=== PATIENT | male | born 1965 ===

== ENCOUNTER 2021-04-15 10:00 | Outpatient (RCR) | payer MEDICARE, MEDICAID, SELFPAY ==
--- NOTE | 2021-03-08 12:17 | MHC.PT.EP ---
[facility] [place] Office [place] Office [place] Office [address] Christina Goldberg [address] [phone] F: [phone] F: [phone] F: [phone] F: [phone] Physical Therapy Plan of Care Date of Evaluation: Date of Surgery: NA Diagnosis: IMPINGEMENT SYNDROME R SHLDER Assessment: Pt IS 55 YO RHD M REFERRED TO PT FROM DR BEY WITH R SHLDER IMPINGEMENT (SCRIPT FROM JUN 2020). Pt REPORTS NO INJURY TO SHLDER , NO RELIEF WITH CORTISONE INJECTION. REPORTS R SHLDER FEELS THE SAME IT DID 8 MONTHS AGO WHEN SAW ORTHO. PRESENTS WITH DECREASED R SHLDER ROM AND STRENGTH WITH LIMITED USE OR R UE REPORTED. Pt IS ON DISABILITY FOR HIS BACK. SHOULD BENEFIT FROM PT TO HELP IMPROVE R SHLDER ROM/STRENGTH AND HELP DECREASE PAIN AND HELP IMPROVE FUNTION Frequency and Duration: The patient will be seen 2X/WK X 6 WKS Short Term Goals: 1. INCREASED POSTURE AWARENESS AND AWARNESS SHLDER CARE 2. I HEP WITH DC EX PLAN Alf Goals: 1. IMPROVED SPADI 2. INCREASED R SHLDER ROM 10-20 DEGREES T/O 3. INCREASED STRENGTH R SHLDER FLEX, ABD, ER AT LEAST 1/2 MM GRADE 4. DECREASED PAIN R SHLDER AT LEAST 50% WITH ADLS Treatment Plan: Modalities to reduce pain, spasms and effusion. Manual therapy to restore motion and function. Therapeutic exercise to improve strength and flexibility. Neuromuscular re-education for posture and balance. Therapeutic activities to return to functional activities of daily living. Electronically signed by: PEDRITO CHRISTINE PT Please sign and return to therapist. Thank you for your referral.
--- NOTE | 2021-06-10 13:43 | MHC.PT.DC ---
[facility] [place] Office [place] Office [place] [address] Christina Goldberg 140 [facility] [phone] F: [phone] F: [phone] F: [phone] F: [phone] Physical Therapy Discharge Report Diagnosis: IMPINGEMENT SYNDROME R SHOULDER Date of Surgery: NA Date of Evaluation: 03/08/21 Date of Discharge: 04/15/21 Treatments to Date: 9 Cancellations to Date: 0 No Shows to Date: 0 Discharge Status: Achieved Goals Improved Function Independent with HEP Discharge Summary: HAS MET GOALS OF PT AND DCed ON THIS DATE Electronically signed by: Louisa Walker PT, DPT Please sign and return to therapist. Thank you for your referral.
== END 2021-09-11 14:34 | disposition home or self-care (01) ==
LOC: HO.PT 10:00
PROVIDERS: Visit Provider Orthopaedic Surgery
DX: M75.41 Impingement syndrome of right shoulder (principal)
CPT/HCPCS: 97033; 97110; 97140; 97162; 97530

== ENCOUNTER 2021-05-21 15:04 | Emergency (ER) | payer MEDICARE, MEDICAID, SELFPAY ==
--- NOTE | ~2021-05-21 | XR_ITS ---
EXAMINATION: XR LUMBOSACRAL SPINE CLINICAL INFORMATION: Low back pain COMPARISON: None TECHNIQUE: Three views of the lumbosacral spine. FINDINGS: There is normal lumbar lordosis. The vertebral heights and alignment is normal. There is loss of disc height at spondylosis virtually at every disc level. No lytic process. No acute fracture. The paravertebral soft tissues are normal. XR/XR lumbar spine 2-3V IMPRESSION: Degenerative disc changes with ventral spondylosis throughout lumbar spine. No visible acute fracture, dislocation or lytic process.
[2021-05-21 16:02] VITALS: BP 173/93; PULSE 99; RESP 16; TEMP 36.9; O2SAT 98; BMI 33.5
--- NOTE | 2021-05-21 16:13 | ED.BACK ---
HPI - Back Pain/Injury General Chief Complaint: Back Pain/Injury Stated Complaint: BACK PAIN Time Seen by Provider: 05/21/21 16:11 Source: patient Mode of arrival: ambulatory Limitations: no limitations History of Present Illness HPI Narrative: 55-year-old male with past medical history of low back injury presents to the ED with acute left-sided low back pain. Denies any numbness or tingling down into the left leg or genitalia is. Denies any recent injury or trauma. Denies any abdominal pain, nausea / vomiting / diarrhea. Denies any urinary symptoms such as burning with urination or increased urinary frequency. Denies chest pain or shortness of breath. Has been using tramadol and ibuprofen at home with minimal relief in discomfort has also been using cyclobenzaprine which helps but some to sleep but does not take away the discomfort. Due to concern he felt he needed to be seen. Related Data Home Medications Medication Instructions Recorded Confirmed atorvastatin 40 mg tablet 40 mg PO DAILY tab 03/14/21 03/14/21 Previous Rx's Medication Instructions Recorded cyclobenzaprine 10 mg tablet 10 mg PO TID PRN #15 tab 03/14/21 ibuprofen 600 mg tablet 600 mg PO TID 30 Days #90 tab 03/14/21 tramadol 50 mg tablet 50 mg PO BID 7 Days #14 tab 03/14/21 diazepam [Valium] 5 mg PO TID PRN #9 tab 05/21/21 Allergies Allergy/AdvReac Type Severity Reaction Status Date / Time nortriptyline [NORTRIPTYLINE] AdvReac Mild CONSTIPATIO Verified 03/14/21 10:00 N valium Allergy Unknown Unknown Uncoded 08/16/20 14:27 Review of Systems Review of Systems: Constitutional : No Weight loss, No Fever, No Chills, No Night Sweats, No Fatigue, No Malaise ENT/Mouth : No Hearing loss, No Ear Pain, No Nasal Congestion, No Sinus Pain, No Hoarseness, No sore throat, No Rhinorrhea, No Swallowing Difficulty Eyes: No Eye Pain, No Swelling, No Redness, No Foreign Body, No Discharge, No Vision Changes Cardiovascular : No Chest Pain, No SOB, No Dyspnea on Exertion, No Orthopnea, No Edema, No Palpitations Respiratory : No Cough, No Sputum, No Wheezing, No Smoke Exposure, No Dyspnea Gastrointestinal : No Nausea, No Vomiting, No Diarrhea, No Constipation, No abdominal Pain, No Hematochezia, No Melena Genitourinary : no irregular bleeding, No Dysuria, No Urinary Frequency, No Hematuria, No Urinary Incontinence, No Urgency, No Flank Pain, No Urinary Flow Changes, No Hesitancy Musculoskeletal : No joint pain, No Myalgias, No Joint Swelling, + back pain Skin : No Skin Lesions, No rash Neuro : No Weakness, No Numbness, No Paresthesias, No Loss of Consciousness, No Dizziness, No Headache Psych : No Anxiety/Panic, No Depression, No SI/HI/AH/VH, No Social Issues, Heme/Lymph: No Bruising, No Bleeding,No Lymphadenopathy Endocrine : No Polyuria, No Polydipsia, No Temperature Intolerance [facility] Past Medical History Attestation statement: The following information was validated with the patient. Source: old records reviewed and obtained from family Surgical History No pertinent past surgical history Family History Family History Father No problems noted. Mother Diabetes Hyperlipidemia Hypertension Maternal Grandfather Cancer Social History Social History Alcohol intake: former Advance Directives: No Advance Directives Information Provided: No Physical Exam Vital Signs: Vital Signs: Last Vital Signs Temp 98.4 F 05/21/21 16:02 Pulse 99 05/21/21 16:02 Resp 16 05/21/21 16:02 BP 173/93 H 05/21/21 16:02 Pulse Ox 98 05/21/21 16:02 Body Mass Index 33.5 vital signs have been reviewed as normal and appeared to be correct. Blood pressure normal. Heart rate normal. Respiration rate normal. Temperature normal. Oxygen saturation normal. Appearance: Alert. Oriented X3. Mild acute distress. Head: Normal external exam. Normocephalic. Atraumatic. No Wilson signs noted. No raccoon eyes noted Eyes: Conjunctiva and sclera normal. ENT: EAC normal. Moist mucous membranes. No drooling noted. No muffled voice noted. Neck: Normal inspection. Neck supple. FROM. No meningeal signs. CVS: Pulses normal throughout. Respiratory: No respiratory distress. Painless inspiration. No accessory muscle usage noted Abdomen: No visible injury noted. Abdomen soft, nd/nt Back: Limited range of motion noted. Patient with midline lumbar spine tenderness as well as left-sided paraspinal involvement. No right-sided paraspinal involvement. No step-offs or acute deformities no overlying ecchymosis. No CVA tenderness. Skin: Skin warm and dry. Normal skin color. Normal skin turgor. Extremities: No lower extremity edema. Extremities exhibit normal range of motion. Neuro: Oriented X 3. No motor deficit. No sensory deficit. Course Reevaluation(s) Reevaluation #1: Patient's x-ray and urinalysis was negative was able to ambulate will discharge home with continued muscle relaxer at home and outpatient follow-up. MDM - Back Pain/Injury MDM Narrative Medical decision making narrative: Patient's vital signs are stable and afebrile. Patient presenting to the ED for acute on chronic low back pain. Patient with reproducible tenderness to the midline lumbar spine as well as left-sided paraspinal region no flank involvement however will obtain urinalysis to ensure the absence of RBCs concerning for stone. Abdomen soft nondistended nontender patient is hemodynamically stable without reports of chest pain or shortness of breath no acute concern at this time for aortic dissection. Will obtain a lumbar spine plain film looking for evidence of acute compression fracture or other acute abnormalities that would explain exacerbation will give single oral dose of oxycodone and continue to monitor for improvement. Lab Data Labs: Lab Results 05/21/21 Range/Units 17:24 Urine Color YELLOW Urine Appearance CLEAR Urine pH 8.0 (5.0-8.0) Ur Specific [place] 1.015 (1.005-1.025) Urine Protein NEG (NEG-TRACE) MG/DL Urine Glucose (UA) NEG (NEG) MG/DL Urine Ketones NEG (NEG) MG/DL Urine Blood NEG (NEG) Urine Nitrite NEG (NEG) Ur Leukocyte Esterase NEG (NEG) Discharge Plan Discharge Clinical Impression: Lumbar radiculopathy Sciatica Qualifiers: Laterality: left Qualified Code(s): M54.32 - Sciatica, left side Patient Disposition: Home, Self-Care Instructions: Sciatica (ED) Additional Instructions: You were seen in the emergency department today for left-sided low back pain an x-ray was done without evidence of fracture. A urine sample was done and was normal this is likely secondary to muscle spasm you will be prescribed a muscle relaxer for home for comfort follow-up with civil engineering specialist if pain reoccurs or persist. Do not take the Valium with the cyclobenzaprine. Prescriptions: New diazepam [Valium] 5 mg tablet 5 mg PO TID PRN (Reason: muscle spasm) Qty: 9 RF: 0 No Action cyclobenzaprine 10 mg tablet 10 mg PO TID PRN (Reason: muscle spasm) Qty: 15 RF: 0 atorvastatin 40 mg tablet 40 mg PO DAILY RF: 0 ibuprofen 600 mg tablet 600 mg PO TID 30 Days Qty: 90 RF: 3 tramadol 50 mg tablet 50 mg PO BID 7 Days Qty: 14 RF: 0 Referrals: Reyes Salinas MD [Physician] - 1 week Interventions: ED Discharge Assessment Last Done: 05/21/21 18:38 Discharge Date/Time: 05/21/21 18:40 Print Language: Ukrainian
[2021-05-21] MEDS: oxyCODONE HCl Immed Release 5 MG TABLET 10 MG PO (16:30)
[2021-05-21 17:40] LABS: Glucose Urine UA NEG (NEG); Leukocyte Esterase Urine NEG (NEG); Nitrite Urine NEG (NEG); Specific Gravity - Urine 1.015 (1.005-1.025); Urine Blood NEG (NEG); Urine Ketones NEG (NEG); Urine Protein NEG (NEG-TRACE)
[2021-05-21 17:44] LABS: Appearance Urine CLEAR; Color Urine YELLOW
== END 2021-05-21 18:40 | disposition home or self-care (01) ==
PROVIDERS: Physician Assistant; Emergency Provider Emergency Medicine; PCP Internal Medicine
DX: M54.16 Radiculopathy, lumbar region (principal); M54.42 Lumbago with sciatica, left side; E78.5 Hyperlipidemia, unspecified; Z79.02 Long term (current) use of antithrombotics/antiplatelets
CPT/HCPCS: 72100; 81003; 99283; 99284

== ENCOUNTER 2021-08-19 11:18 | Emergency (ER) | payer MEDICARE, MEDICAID, SELFPAY ==
--- NOTE | ~2021-08-19 | CT_ITS ---
EXAMINATION: CT LUMBAR SPINE WITHOUT CONTRAST CLINICAL INFORMATION: Worsening back pain status post fall. Difficulty walking. COMPARISON: Lumbar spine radiographs 08/19/2021. TECHNIQUE: Weed Inspector images were obtained. CT imaging of the lumbar spine was performed without contrast. Data was reformatted into multiplanar images at the acquisition workstation. This CT examination was performed using dose optimization techniques as appropriate, variously including the following: *Automated exposure control *Adjustment of mA and/or kV according to patient size (this includes techniques or standardized protocols for targeted exams where dose is matched to indication/reason for exam; i.e. extremities or head) *Use of iterative reconstruction technique DLP; 659 mGy-cm FINDINGS: There is an acute compression fracture of the L1 vertebral body with subtle impaction upper endplate resulting in 15% vertebral height loss anteriorly. No retropulsion of posterior cortex. Vertebral heights are otherwise maintained at all levels. There is loss of intervertebral disc height with associated sclerotic degenerative endplate changes and hypertrophic disc osteophyte spurring at multiple levels.. Slight left lateral subluxation of L1 on L2 and slight right lateral subluxation of L2 on L3. Vertebral alignment is grossly maintained the sagittal dimension. Canal patency is not well assessed on this examination due to inherent limitations of CT without intrathecal contrast. There is partial effacement of perineural fat at multiple levels with mild to moderate mass effect on both L5 foraminal nerve roots. CT/CT lumbar spine wo con IMPRESSION: There is an acute compression fracture of the L1 vertebral body with approximately 15% vertebral height loss anteriorly. No retropulsion of posterior cortex. Although the canal is not well assessed on this examination due to inherent limitations of CT without intrathecal contrast there is no evidence of canal compromise. Disc osteophyte spurring in conjunction with facet degenerative change at L5-S1 causes mild to moderate mass effect on both L5 foraminal nerve roots.
--- NOTE | ~2021-08-19 | CT_ITS ---
EXAMINATION: CT HEAD WITHOUT CONTRAST CLINICAL INFORMATION: Fall. Head injury. COMPARISON: Previous head CT most recent October 2012 TECHNIQUE: Contiguous axial imaging was performed from the skull base to vertex without intravenous administration of contrast. This CT examination was performed using dose optimization techniques as appropriate, variously including the following: *Automated exposure control *Adjustment of mA and/or kV according to patient size (this includes techniques or standardized protocols for targeted exams where dose is matched to indication/reason for exam; i.e. extremities or head) *Use of iterative reconstruction technique DLP: 915 mGy-cm FINDINGS: There is no evidence of acute intracranial hemorrhage or territorial infarction. No abnormal mass effect or midline shift is seen. Pan to white matter differentiation is well preserved. No extra-axial fluid collections are identified. The ventricles are normal in size. There is no abnormal attenuation within the brain parenchyma. The osseous structures and soft tissues are normal. The mastoid air cells and visualized portions of the paranasal sinuses are well aerated. CT/CT head/brain wo con IMPRESSION: No acute intracranial pathology.
--- NOTE | ~2021-08-19 | XR_ITS ---
EXAMINATION: XR LUMBOSACRAL SPINE CLINICAL INFORMATION: Back pain COMPARISON: Radiographs lumbar spine 05/21/2021, MR lumbar spine 06/22/2018 TECHNIQUE: Three views of the lumbosacral spine. FINDINGS: There are 5 nonrib-bearing lumbar vertebral with mild dextrocurvature upper lumbar spine and normal lumbar lordosis. Mild superior endplate depression is present at L1, new from prior exam 05/21/2021. There is no visible fracture line and no visible destructive process. The remainder of the vertebral bodies are normal in height. There is no spondylolisthesis. Again, there are multilevel degenerative disc changes with disc narrowing and endplate sclerosis and vertebral spurring. There is facet degeneration lumbosacral junction. The SI joints and visualized sacrum are unremarkable. XR/XR lumbar spine 2-3V IMPRESSION: 1. Mild superior endplate depression L1, new from 05/21/2021. 2. Multilevel degenerative disc changes. Facet degeneration lumbosacral junction. 3. No spondylolisthesis or visible destructive process.
--- NOTE | ~2021-08-19 | CT_ITS ---
EXAMINATION: CT CERVICAL SPINE WITHOUT CONTRAST CLINICAL INFORMATION: Fall. Neck pain. COMPARISON: Previous CT of the cervical spine April 2007 TECHNIQUE: Axial images through the cervical spine without contrast. Vaginal and coronal reconstructions on the technologist workstation were performed. This CT examination was performed using dose optimization techniques as appropriate, variously including the following: *Automated exposure control *Adjustment of mA and/or kV according to patient size (this includes techniques or standardized protocols for targeted exams where dose is matched to indication/reason for exam; i.e. extremities or head) *Use of iterative reconstruction technique DLP: 764 mGy-cm FINDINGS: Bone alignment is normal. No fracture or dislocation is seen. There is multilevel degenerative spondylosis from C2-C3 to T1-T2. There is degenerative disc disease from C3-C4 to C7-T1. There are degenerative changes at the C1 dens articulation. Prevertebral soft tissues are normal. There is soft tissue ossification of the nuchal ligament. Visualized lung apices are clear. CT/CT cervical spine wo con IMPRESSION: Degenerative changes. No fracture or dislocation is seen.
[2021-08-19 11:29] VITALS: BP 131/79; PULSE 108; RESP 16; TEMP 36.8; O2SAT 98; BMI 45.3
[2021-08-19] MEDS: oxyCODONE HCl Immed Release 5 MG TABLET PO (11:58)
[2021-08-19] MEDS: Ibuprofen 800 MG TABLET PO (11:58)
[2021-08-19] MEDS: diazePAM 5 MG TABLET PO (11:58)
[2021-08-19 12:58] VITALS: RESP 18
--- NOTE | 2021-08-19 14:14 | ED.BACK ---
HPI - Back Pain/Injury General Chief Complaint: Back Pain/Injury Stated Complaint: back injury 08/17/21 Time Seen by Provider: 08/19/21 11:49 Source: patient and family (Daughter at bedside) Mode of arrival: ambulatory Limitations: language barrier ([place]orese-speaking) History of Present Illness HPI Narrative: 56-year-old male with a past medical history of chronic back pain presenting to the ED with complaints of acute on chronic back pain in the lumbar spine after he had a fall when he was going on the steps when he was at home approximately 2 days ago and his legs gave out he fell down 5 steps and since then has been having neck and lower back pain. Any type of movement will make the back pain worse. He reports nothing relieves the back pain. He has tried [id number] Motrin Tylenol along with prescribed muscle relaxants and tramadol no symptomatic relief. He reports he did hit his head but did not lose consciousness. He is not on any blood thinners. He also complains of neck pain. Denies any other symptoms complaints concerns or injuries at this time. MD elicited complaint: back pain, back injury and fall Pertinent past history: prior back pain and recent trauma Onset (ago): day(s) (Two days) Timing: constant and progressively worsening Severity: severe Pain scale (0-10): 10 Similar Symptoms Previously: Yes Quality: aching Location: lumbar spine Radiation: none Exacerbating factors: movement, sitting upright, walking and lifting Relieving factors: none Context: fall (He reports his leg gave out on Thursday while he was walking down the steps and he fell down the 5 steps injuring his back) Associated symptoms: other (He reports intermittent paresthesias to bilateral lower extremities although none at this time reports associated neck pain) Treatments prior to arrival: cold therapy, heat therapy, NSAIDS, acetaminophen and other medications (Muscle relaxants and tramadol no symptomatic relief) Work related injury: No Related Data Home Medications Medication Instructions Recorded Confirmed atorvastatin 40 mg tablet 40 mg PO DAILY tab 03/14/21 03/14/21 Previous Rx's Medication Instructions Recorded cyclobenzaprine 10 mg tablet 10 mg PO TID PRN #15 tab 03/14/21 ibuprofen 600 mg tablet 600 mg PO TID 30 Days #90 tab 03/14/21 tramadol 50 mg tablet 50 mg PO BID 7 Days #14 tab 03/14/21 diazepam 5 mg tablet (Valium) 5 mg PO TID PRN #9 tab 05/21/21 acetaminophen 500 mg tablet 1,000 mg PO QID PRN #14 tab 08/19/21 (Tylenol Extra Strength) cyclobenzaprine 10 mg tablet 10 mg PO Q8H PRN #20 tab 08/19/21 ibuprofen 800 mg tablet 800 mg PO Q8H PRN #14 tab 08/19/21 lidocaine HCl 4 % topical cream 1 appl TOPICAL BID PRN #120 g 08/19/21 (Aspercreme (lidocaine HCl)) oxycodone 10 mg tablet 10 mg PO Q6H PRN #20 tab 08/19/21 Allergies Allergy/AdvReac Type Severity Reaction Status Date / Time nortriptyline [NORTRIPTYLINE] AdvReac Mild CONSTIPATIO Verified 03/14/21 10:00 N valium Allergy Unknown Unknown Uncoded 08/16/20 14:27 Review of Systems Review of Systems: Constitutional : No trauma, No Weight loss, No Fever, No Chills, ENT/Mouth : No Hearing loss, No Ear Pain, No Nasal Congestion, No Sinus Pain, No Hoarseness, No sore throat, No Rhinorrhea, No Swallowing Difficulty Cardiovascular : No Chest Pain, No SOB Respiratory : No Cough, No Dyspnea Gastrointestinal : No Nausea, No Vomiting, No Diarrhea, No abdominal Pain, No Hematochezia, No Melena Genitourinary : No Dysuria, No Urinary Frequency, No Hematuria, No Urinary or Bowel Incontinence/retention Musculoskeletal : + Back pain/injury, + neck pain/injury, No joint stiffness, No joint swelling Skin : No Skin Lesions, No rash or signs of infection Neuro : No Weakness, No radiation, No Numbness, No Paresthesias, No headache, no loss of bowel or bladder incontinence, no saddle anesthesia, Focal weakness, No radiation Denies history of IV drug usage. Yes all other systems are reviewed and are negative [facility] Past Medical History Attestation statement: The following information was validated with the patient. Surgical History No pertinent past surgical history Family History Family History Father No problems noted. Mother Diabetes Hyperlipidemia Hypertension Maternal Grandfather Cancer Social History Social History Alcohol intake: former Advance Directives: No Advance Directives Information Provided: No Physical Exam Vital Signs: Vital Signs: Last Vital Signs Temp 98.3 F 08/19/21 11:29 Pulse 108 H 08/19/21 11:29 Resp 18 08/19/21 12:58 BP 131/79 08/19/21 11:29 Pulse Ox 98 08/19/21 11:29 Body Mass Index 45.3 vital signs have been reviewed as normal and appeared to be correct. Blood pressure normal. Heart rate normal. Respiration rate normal. Temperature normal. Oxygen saturation normal. Appearance: Alert. Oriented X3. No acute distress. Head: Normal external exam. Normocephalic. Atraumatic. No Wilson signs noted. No raccoon eyes noted Eyes: PERRLA. EOMI. Conjunctiva and sclera normal. Eyelids normal. ENT: EAC normal. TM's Normal. Pharynx normal. Uvula midline. Moist mucous membranes. No trismus noted. No drooling noted. No muffled voice noted. Neck: Normal inspection. Neck supple. FROM. No adenopathy. Thyroid Normal. Trachea midline. No meningeal signs. No neck mass noted. Tender to palpation of bilateral paracervical musculature and mid cervical tenderness. No step-offs or deformities noted. Patient neuro intact bilaterally and distally on all 4 extremities. Reflexes intact bilaterally and distally in all 4 extremities. No rashes/lesion/induration/fluctuance or signs of infection noted. No edema noted. CVS: Normal heart rate and rhythm. Heart sound normal. No murmurs noted. Pulses normal throughout. Respiratory: No respiratory distress. Painless inspiration. Breath sounds normal. No wheezes/rales/rhonchi noted. Chest nontender. No accessory muscle usage noted or decreased air movement noted. Abdomen: Soft and nontender. Bowel sounds normal in all 4 quadrants. No distention noted. No organomegaly noted. No visible injury noted. Back: No CVA tenderness. Full range of motion noted. No obvious deformities, or edema. Mild para-spinal muscular tenderness from lumbar region to coccyx. Full ROM in back and lower extremities. 5/5 strength hip extension/flexion, abduction, adduction. Mild Lumbar pain with hip flexion against resistance. Straight leg raise test negative on right; Straight leg raise test negative on left; Reflexes normal ankle and knee bilaterally; EHL motor strength normal bilaterally. No rashes/lesion/induration/fluctuance or signs infection noted. Skin: Skin warm and dry. Normal skin color. Normal skin turgor. No rashes/lesions/lacerations noted. Extremities: No lower extremity edema. Extremities exhibit normal range of motion. Extremities nontender. Neuro: Oriented X 3. No motor deficit. No sensory deficit. Reflexes normal. Patient has a normal steady gait. Course Course Course Narrative: 11:50am Pt c likely muscular pain, but could be herniated disc. Neuro exam shows no deficits.Not c/w Pyelo/UTI/kidney stone. Not cauda equina syndrome. Not c/w AAA/epidural abscess/dissection.No high risk Hx (Incont, fever, immunosupp, recent surgery/LP, coag, wt loss, puls mass, hx/o Ca, TB, or IVDU) to warrant MRI. Due to recent fall/injury and worsening lower back pain an x-ray was obtained and revealed mild superior endplate depression at L1, new from 05/21/2021 with multilevel degenerative disc changes and other chronic changes no other acute processes. Although due to this new mild superior endplate compression at L1 that is new a CT scan of brain/cervical spine and lumbar spine was ordered. Patient being treated with 800 mg of Motrin, 5 mg of Valium and 5 mg of oxycodone will then re-evaluate. Reevaluation(s) Reevaluation #1: - CT scan of brain and cervical spine revealed chronic changes no acute processes were noted. - lumbar spine CT revealed an acute compression fracture of L1 vertebrae body with approximately 15% vertebrae height loss anteriorly no retropulsion of posterior cortex. Although the canal is not well assessed on this examination due to inherent limitations of CT without intrathecal contrast there is no evidence of canal compromise. Disc osteophyte spurring in conjunction with facet degenerative change at L5-S1 causes mild to moderate mass effect on both L5 foraminal nerve roots. - therefore I offered admission for intractable pain and possibly cement therapy although patient is refusing at this time reports that he can do outpatient therapy if he chooses to his son is an occupational therapy therefore he will set up this with his son. Will DC home with symptomatic treatment instructions return if any new or worsening to follow-up with primary care provider. Patient and daughter at bedside understand and agree this plan. Time: 16:19 MDM - Back Pain/Injury Medical Records Attestation: I reviewed the patient's medical records. Imaging Data Lumbar spine x-ray: Attestation: I personally reviewed and interpreted this imaging study as follows: Radiologist's impression: FINDINGS: There are 5 nonrib-bearing lumbar vertebral with mild dextrocurvature upper lumbar spine and normal lumbar lordosis. Mild superior endplate depression is present at L1, new from prior exam 05/21/2021. There is no visible fracture line and no visible destructive process. The remainder of the vertebral bodies are normal in height. There is no spondylolisthesis. Again, there are multilevel degenerative disc changes with disc narrowing and endplate sclerosis and vertebral spurring. There is facet degeneration lumbosacral junction. The SI joints and visualized sacrum are unremarkable. XR/XR lumbar spine 2-3V IMPRESSION: 1. Mild superior endplate depression L1, new from 05/21/2021. 2. Multilevel degenerative disc changes. Facet degeneration lumbosacral junction. 3. No spondylolisthesis or visible destructive process. CT scan brain/cervical spine without contrast: Attestation: I personally reviewed and interpreted this imaging study as follows: Radiologist's impression: FINDINGS: There is no evidence of acute intracranial hemorrhage or territorial infarction. No abnormal mass effect or midline shift is seen. Pan to white matter differentiation is well preserved. No extra-axial fluid collections are identified. The ventricles are normal in size. There is no abnormal attenuation within the brain parenchyma. The osseous structures and soft tissues are normal. The mastoid air cells and visualized portions of the paranasal sinuses are well aerated. ? CT/CT head/brain wo con IMPRESSION: No acute intracranial pathology. Lumbar spine CT scan without contrast: Attestation: I personally reviewed and interpreted this imaging study as follows: Radiologist's impression: FINDINGS: There is an acute compression fracture of the L1 vertebral body with subtle impaction upper endplate resulting in 15% vertebral height loss anteriorly. No retropulsion of posterior cortex. Vertebral heights are otherwise maintained at all levels. There is loss of intervertebral disc height with associated sclerotic degenerative endplate changes and hypertrophic disc osteophyte spurring at multiple levels.. Slight left lateral subluxation of L1 on L2 and slight right lateral subluxation of L2 on L3. Vertebral alignment is grossly maintained the sagittal dimension. Canal patency is not well assessed on this examination due to inherent limitations of CT without intrathecal contrast. There is partial effacement of perineural fat at multiple levels with mild to moderate mass effect on both L5 foraminal nerve roots. CT/CT lumbar spine wo con IMPRESSION: There is an acute compression fracture of the L1 vertebral body with approximately 15% vertebral height loss anteriorly. No retropulsion of posterior cortex. Although the canal is not well assessed on this examination due to inherent limitations of CT without intrathecal contrast there is no evidence of canal compromise. Disc osteophyte spurring in conjunction with facet degenerative change at L5-S1 causes mild to moderate mass effect on both L5 foraminal nerve roots. Critical Care Time Critical Care Time Critical Care Time: Yes Total Critical Care Time: 60 Attestation: I personally attest to this time spent taking care of the patient Discharge Plan Discharge Clinical Impression: Fall, Closed compression fracture of L1 vertebra, Cervical strain Patient Disposition: Home, Self-Care Instructions: Cervical Strain (ED), Thoracolumbar Fracture (ED) Additional Instructions: [facility] physicians at [address] [place] [id number] at [phone] Prescriptions: New cyclobenzaprine 10 mg tablet 10 mg PO Q8H PRN (Reason: Muscle spasm) Qty: 20 RF: 0 ibuprofen 800 mg tablet 800 mg PO Q8H PRN (Reason: pain) Qty: 14 RF: 0 oxycodone 10 mg tablet 10 mg PO Q6H PRN (Reason: pain) Qty: 20 RF: 0 lidocaine HCl [Aspercreme (lidocaine HCl)] 4 % cream 1 appl topical BID PRN (Reason: pain) Qty: 120 RF: 0 acetaminophen [Tylenol Extra Strength] 500 mg tablet 1,000 mg PO QID PRN (Reason: fever or pain) Qty: 14 RF: 0 No Action diazepam [Valium] 5 mg tablet 5 mg PO TID PRN (Reason: muscle spasm) Qty: 9 RF: 0 cyclobenzaprine 10 mg tablet 10 mg PO TID PRN (Reason: muscle spasm) Qty: 15 RF: 0 atorvastatin 40 mg tablet 40 mg PO DAILY RF: 0 ibuprofen 600 mg tablet 600 mg PO TID 30 Days Qty: 90 RF: 3 tramadol 50 mg tablet 50 mg PO BID 7 Days Qty: 14 RF: 0 Referrals: Ortega Correa MD [Primary Care Provider] - 2 days Print Language: Nigerian
== END 2021-08-19 16:35 | disposition home or self-care (01) ==
PROVIDERS: Emergency Provider Emergency Medicine; PCP Internal Medicine
DX: S32.019A Unspecified fracture of first lumbar vertebra, initial encounter for closed fracture (principal); S16.1XXA Strain of muscle, fascia and tendon at neck level, initial encounter; W10.9XXA Fall (on) (from) unspecified stairs and steps, initial encounter; Y93.9 Activity, unspecified; Y92.9 Unspecified place or not applicable; Y99.9 Unspecified external cause status
CPT/HCPCS: 70450; 72100; 72125; 72131; 99284; 99291

== ENCOUNTER 2022-02-27 11:39 | Outpatient (REF) | payer MEDICARE, MEDICAID, SELFPAY ==
[2022-02-27 12:21] LABS: Hematocrit 48.3 % (42.0-52.0); Hemoglobin 15.8 g/dl (14.0-18.0); Mean Corpuscular HGB Conc 32.7 g/dl (31.0-36.0); Mean Corpuscular Hemoglobin 27.7 pg (27.0-33.0); Mean Corpuscular Volume 84.7 fL (80.0-98.0); Mean Platelet Volume 10.8 fL (9.4-12.4); Platelet Count 203 X10*3/uL (160-400); Red Cell Distribution Width 13.5 % (11.0-16.0); White Blood Count 5.6 X10*3/uL (4.8-10.8)
[2022-02-27 12:37] LABS: Estimated Average Glucose 111 mg/dL; Hemoglobin A1c % 5.5 %
[2022-02-27 12:45] LABS: Alanine Aminotransferase 36 U/L (0-40); Albumin Level 4.4 g/dL (3.5-5.0); Alkaline Phosphatase 76 U/L (39-117); Anion Gap 13 (12-20); Aspartate Amino Transferase 22 U/L (5-37); Bilirubin Total 0.5 mg/dL (0.0-1.0); Blood Urea Nitrogen 15 mg/dL (9-16); Calcium 9.7 mg/dL (8.4-10.2); Carbon Dioxide 27 mmol/L (22-29); Chloride 104 mmol/L (96-108); Cholesterol 248 mg/dL; Estimated Glomerular Filt Rate > 60; Glucose Fasting 106 mg/dL (60-99); HDL Cholesterol 41 mg/dL; LDL Cholesterol Calculated 173 mg/dl; Potassium 4.6 mmol/L (3.3-5.1); Sodium 139 mmol/L (135-145); Total Protein 7.1 g/dL (6.5-8.0); Triglycerides 170 mg/dL
[2022-02-27 13:07] LABS: TSH reflex Free T4 3.69 uIU/mL (0.32-4.0)
== END 2022-02-27 11:40 | disposition home or self-care (01) ==
LOC: HO.LAB 11:39
PROVIDERS: PCP Physician Assistant; Visit Provider Physician Assistant
DX: E78.5 Hyperlipidemia, unspecified (principal)
CPT/HCPCS: 36415; 80053; 80061; 83036; 84443; 85027

== ENCOUNTER 2022-08-11 08:24 | Outpatient (REF) | payer MEDICARE, MEDICAID, SELFPAY ==
[2022-08-11 09:13] LABS: Hematocrit 47.4 % (42.0-52.0); Hemoglobin 15.6 g/dl (14.0-18.0); Mean Corpuscular HGB Conc 32.9 g/dl (31.0-36.0); Mean Corpuscular Volume 85.1 fL (80.0-98.0); Platelet Count 271 X10*3/uL (160-400); Red Blood Count 5.57 X10*6/uL (4.60-5.80); Red Cell Distribution Width 13.7 % (11.0-16.0); White Blood Count 6.6 X10*3/uL (4.8-10.8)
[2022-08-11 09:43] LABS: Alanine Aminotransferase 41 U/L (0-40); Albumin Level 4.5 g/dL (3.5-5.0); Alkaline Phosphatase 76 U/L (39-117); Anion Gap 18 (12-20); Aspartate Amino Transferase 29 U/L (5-37); Bilirubin Total 0.5 mg/dL (0.0-1.0); Blood Urea Nitrogen 17 mg/dL (9-16); Calcium 9.3 mg/dL (8.4-10.2); Carbon Dioxide 25 mmol/L (22-29); Chloride 102 mmol/L (96-108); Cholesterol 231 mg/dL; Estimated Glomerular Filt Rate > 60; Glucose Fasting 125 mg/dL (60-99); HDL Cholesterol 41 mg/dL; LDL Cholesterol Calculated 162 mg/dl; Potassium 4.5 mmol/L (3.3-5.1); Sodium 140 mmol/L (135-145); Total Protein 7.1 g/dL (6.5-8.0); Triglycerides 144 mg/dL
[2022-08-11 10:05] LABS: Prostate Specific Antigen Scr 1.54 ng/mL (<0.05-4.0); TSH reflex Free T4 3.48 uIU/mL (0.32-4.0)
== END 2022-08-11 08:25 | disposition home or self-care (01) ==
LOC: HO.LAB 08:24
PROVIDERS: PCP Physician Assistant; Visit Provider Physician Assistant
DX: E66.9 Obesity, unspecified (principal); E78.2 Mixed hyperlipidemia; Z12.5 Encounter for screening for malignant neoplasm of prostate
CPT/HCPCS: 36415; 80053; 80061; 84153; 84443; 85027

== ENCOUNTER → 2023-04-01 12:53 | Outpatient (BNVA) | payer MEDICARE, MEDICAID, SELFPAY | PROVIDERS: PCP Physician Assistant; Visit Provider Internal Medicine | DX: R09.89 Other specified symptoms and signs involving the circulatory and respiratory systems (principal); E66.09 Other obesity due to excess calories; Z68.34 Body mass index [BMI] 34.0-34.9, adult | CPT/HCPCS: 99202 ==

== ENCOUNTER 2023-04-17 07:56 | Outpatient (REF) | payer MEDICARE, MEDICAID, SELFPAY ==
[2023-04-17 08:47] LABS: Hematocrit 47.6 % (42.0-52.0); Hemoglobin 15.7 g/dl (14.0-18.0); Mean Corpuscular Hemoglobin 28.1 pg (27.0-33.0); Mean Corpuscular Volume 85.3 fL (80.0-98.0); Mean Platelet Volume 10.2 fL (9.4-12.4); Platelet Count 248 X10*3/uL (160-400); Red Blood Count 5.58 X10*6/uL (4.60-5.80); Red Cell Distribution Width 13.3 % (11.0-16.0)
[2023-04-17 09:23] LABS: Alanine Aminotransferase 40 U/L (0-40); Albumin Level 4.1 g/dL (3.5-5.0); Alkaline Phosphatase 72 U/L (39-117); Anion Gap 12 (12-20); Aspartate Amino Transferase 23 U/L (5-37); Bilirubin Total 0.7 mg/dL (0.0-1.0); Blood Urea Nitrogen 19 mg/dL (9-16); Calcium 9.6 mg/dL (8.4-10.2); Carbon Dioxide 27 mmol/L (22-29); Chloride 104 mmol/L (96-108); Cholesterol 234 mg/dL; Estimated Glomerular Filt Rate > 60; Glucose Fasting 101 mg/dL (60-99); HDL Cholesterol 38 mg/dL; LDL Cholesterol Calculated 152 mg/dl; Potassium 4.8 mmol/L (3.3-5.1); Sodium 138 mmol/L (135-145); Total Protein 6.7 g/dL (6.5-8.0); Triglycerides 221 mg/dL
[2023-04-17 09:43] LABS: Prostate Specific Antigen Scr 2.21 ng/mL (<0.05-4.0); TSH reflex Free T4 5.94 uIU/mL (0.32-4.0)
[2023-04-17 10:09] LABS: Creatinine Urine 205.04 mg/dL
[2023-04-17 10:49] LABS: Free T4 (Free Thyroxine) 0.78 ng/dL (0.71-1.85)
== END 2023-04-17 07:57 | disposition home or self-care (01) ==
LOC: HO.LAB 07:56
PROVIDERS: Visit Provider Physician Assistant
DX: Z12.5 Encounter for screening for malignant neoplasm of prostate (principal); E66.09 Other obesity due to excess calories; Z68.34 Body mass index [BMI] 34.0-34.9, adult; I10 Essential (primary) hypertension; E78.2 Mixed hyperlipidemia
CPT/HCPCS: 36415; 80053; 80061; 82043; 84153; 84439; 84443; 85027

== ENCOUNTER 2023-05-21 10:51 | Day surgery (SDC) | payer MEDICARE, MEDICAID, SELFPAY ==
[2023-05-19 14:44] VITALS: BMI 35.7
[2023-05-21 11:18] VITALS: BMI 34.0
--- NOTE | 2023-05-21 11:23 | PC.NURSE ---
med list verified. pt states doesn't take any meds except prn pain meds. told pt he didn't need to take bp med all the time and hasn't taken it.
[2023-05-21 11:29] VITALS: BP 151/92; PULSE 86; RESP 16; TEMP 36.6; O2SAT 97
[2023-05-21] MEDS: Lactated Ringers 1,000 ML 50 ML IVCONT (11:46)
--- NOTE | 2023-05-21 12:08 | HO.ANESPROP2 ---
HPI - Anesthesia Eval Consult details Narrative: EGD PMFSH Active Problems Active Problems: All Active Problems (Updated 05/21/23 @ 11:47 by Taylor Farmer RN) Sciatica (Acute) Medicare annual wellness visit, initial (Acute) HLD (hyperlipidemia) (Acute) Compression fracture of L1 vertebra (Acute) Annual physical exam (Acute) Obese (Acute) Globus sensation (Acute) HTN (hypertension) (Acute) Hypothyroid (Acute) BPH associated with nocturia (Acute) Pharyngitis (Acute) Past Medical History Medical History (Updated 05/21/23 @ 11:47 by Taylor Farmer RN) Disc degeneration, lumbar HTN (hypertension) Family History Family History Father No problems noted. Mother Diabetes Hyperlipidemia Hypertension Maternal Grandfather Cancer Family history of problems with anesthesia: No Surgical History Surgical History Hx of colonoscopy No pertinent past surgical history History of Problems with Anesthesia: No Social History Social History (Updated 04/21/23 @ 09:12 by Paras Gutierrez PA-C) Housing: House Alcohol intake: current Alcohol intake frequency: holidays/special occasions only Patient Tobacco Use Status: Never used Tobacco Tobacco use type: Cigarette e-Cigarette/Vaping Use: Never Used Second Hand Smoke Exposure: No Use of substances other than those prescribed or required for medical reasons: No Are you DNR?: No Advance Directives: No Advance Directives Information Provided: Yes service: No Current occupational status: disabled Cognitive needs: No Hearing needs: No Vision needs: Yes Meds Allergies Allergy/AdvReac Type Severity Reaction Status Date / Time valium Allergy Unknown Unconscious Uncoded 05/21/23 11:14 Active Medications: Current Medications Lactated Ringer's (Lr) 1,000 mls @ 50 mls/hr IVCONT .Q20H FRANCISCA Last Admin: 05/21/23 11:46 Dose: 50 mls/hr Home Medications Medication Instructions Recorded Confirmed Last Taken Type omeprazole 20 mg capsule,delayed 20 mg PO QAM 08/12/22 05/21/23 Unknown History release Exam Exam Date and Time: May 21, 2023 1208 Height,Weight and Vital Signs: Height 5 ft 10 in Weight 107.501 kg Last Vital Signs Temp 97.9 F 05/21/23 11:29 Pulse 86 05/21/23 11:29 Resp 16 05/21/23 11:29 BP 151/92 H 05/21/23 11:29 Pulse Ox 97 05/21/23 11:29 O2 Del Method Room Air 05/21/23 11:29 Airway Mallampati Class: III TM Dist: >3cm Neck ROM: Limited Heart: rrr Assessment and Plan Assessment Anesthesia Assessment: Anesthesia Plan Discussed and Chart Reviewed Final Anesthetic Review Family History of Problems with Anesthesia: No History of Problems with Anesthesia: No NPO: Yes ASA Class: III Final Preanesthetic Review: No Changes in Pt Med Stat, Meds/Allgs Chart Reviewed, Consent Obtained/Reviewed and Anes Risks/Benef Reviewed Patient Risk: Intermediate Procedure Risk: Intermediate Anesthetic Plan Anesthetic Plan: MAC: and Agree w/ Assess. and Plan Disposition: Standard PACU
--- NOTE | 2023-05-21 12:13 | MHC.SHP ---
Pre-Procedural Eval Section A Date of Service: 05/21/23 Section B Chief Complaint: Other specified symptoms and signs involving the Details of Present Illness: Surg hx: Hx of colonoscopy No pertinent past surgical history Relevant Family History (Specify if Yes): Yes Relevant Social History: None Present Medications: see Short Stay Collaborative assessment Medical History: No relevant PMH Allergies: Allergies Allergy/AdvReac Type Severity Reaction Status Date / Time valium Allergy Unknown Unconscious Uncoded 05/21/23 11:14 Review of Systems Review of Systems Comment: Ten point ROS negative except as above Exam Exam Comment: Gen appear: No acute distress HEENT: no icterus Chest: No overt resp distress Abd: soft, nontender, nondistended Psych: Stable affect, answering questions appropriately Neuro: A/Ox3 noted to move all extremities spontaneously Ext: no peripheral edema Plan Diagnosis/Plan: Unchanged I have reviewed the history and physical and performed a pertinent physical examination on my patient. No changes have occurred unless specified. Time Spent With Patient Time: Total time managing care of this patient today ____ minutes.
--- NOTE | 2023-05-21 12:14 | P.OP_ITS ---
Operative Note Operative Note Date of Service: 05/21/23 Narrative: Procedure: Esophagogastroduodenoscopy Endoscopist: Anu Quijano MD Indication: Globus sensation Anesthesia Provider: Dr Epperson Anesthesia Type: MAC Instrument: Olympus [id number] ?? EGD Procedure:?? The procedure, indications, preparation and potential complications were reviewed with the patient, who indicated understanding and gave written informed consent to proceed. A physical exam was performed. The endoscope was introduced through the mouth, and advanced to the second part of duodenum. The mucosa was carefully examined on slow withdrawal of the endoscope. The patient tolerated the procedure well. There were no immediate complications.? ? EGD Findings:? * Esophagus:? Normal mucosa noted in the entire esophagus. The Z line was at 35 cm. There was a small 5-6 mm papilloma just above the GE junction. A small hiatal hernia was noted with diaphragmatic pinch at 39 cm. * Stomach:? Normal mucosa was noted in the stomach. Retroflexion in the fundus confirmed the morphology of the hiatal hernia as Hill grade II. * Duodenum:? Normal mucosa was noted in the whole of the examined duodenum. Additional intervention: A soft tipped Savary wire was introduced through the biopsy channel and advanced to the antrum. The gastroscope was then backed out. Savary Neto bougie was advanced over the guidewire and esophagus was completely dilated from 18 mm to 20 mm. On relook, there was no heme or tear noted the entire esophagus. ? EGD Impressions:? * Small papilloma otherwise normal esophagus (dilation) * Normal stomach * Normal duodenum ?? Recommendations:?? * No stricture or narrowing noted in the esophagus. * No obvious evidence of reflux noted. * If sx persist, can consider pH study OFF PPI. Above has been reviewed with the patient.
[2023-05-21 12:51] VITALS: BP 97/66; PULSE 79; RESP 16; TEMP 36.3; O2SAT 96
[2023-05-21 13:06] VITALS: BP 128/91; PULSE 91; RESP 16; O2SAT 96
[2023-05-21 13:21] VITALS: BP 121/80; PULSE 87; RESP 16; TEMP 36.3; O2SAT 96
[2023-05-21 13:37] VITALS: BP 127/88; PULSE 81; RESP 16; TEMP 37.1; O2SAT 96
== END 2023-05-21 14:40 | disposition home or self-care (01) ==
PROVIDERS: PCP Physician Assistant; Visit Provider Internal Medicine
PROC: 0DJ08ZZ Inspection of Upper Intestinal Tract, Via Natural or Artificial Opening Endoscopic (ICD-10-PCS; CPT 43235; principal; 2023-05-21 12:30)
DX: R09.89 Other specified symptoms and signs involving the circulatory and respiratory systems (principal); D13.0 Benign neoplasm of esophagus; K44.9 Diaphragmatic hernia without obstruction or gangrene; I10 Essential (primary) hypertension; Z79.1 Long term (current) use of non-steroidal anti-inflammatories (NSAID); Z79.899 Other long term (current) drug therapy; Z88.8 Allergy status to other drugs, medicaments and biological substances
CPT/HCPCS: 43248; C1769; J3010

== ENCOUNTER → 2023-05-21 10:51 | Outpatient (BNV) | payer MEDICARE, MEDICAID, SELFPAY | PROVIDERS: PCP Physician Assistant; Visit Provider Internal Medicine | DX: F45.8 Other somatoform disorders (principal) | CPT/HCPCS: 43248 ==

== ENCOUNTER 2023-06-12 12:29 | Outpatient (AMB) | payer MEDICARE, MEDICAID, SELFPAY ==
--- NOTE | 2023-06-12 12:32 | A.OFFVIS_ITS ---
Intake Vital Signs 06/12/23 12:38 Height 5 ft 10 in Weight 248 lb BMI 35.6 BP 118/81 Blood Pressure Location Lt brachial Position Sitting Pulse 84 Intake Visit Reasons: S/p egd Intake Note: Patient follow up for EGD results. Patient denies any other GI issues. Glazing Superintendent Required: No Accompanied by: Self / Same As Patient Allergies valium Allergy (Unknown, Uncoded 06/12/23 12:32) Unconscious HPI HPI Comments History of Present Illness Details 57 y.o M who is here for globus sensation. 04/01/23: Sx started around 3 years ago and describes it as a sensation of mucus stuck in his upper throat with an urge to constantly clear his throat. Most pronounced after he wakes up and during the day. Happens mostly with sodas. No issues with solids. No changes in appetite, or weight. Takes ibuprofen PRN. Does not smoke or drink. Grandfather had esophageal ca in his 80s. Was seen by ENT for the same in Sep 2022 with laryngoscopy and they suspect reflux. He was given PPI x 6 weeks but pt does not think it helped at all and therefore did not ask for any refills. 05/21/23: * Small papilloma otherwise normal esophagus (dilation) * Normal stomach * Normal duodenum 06/12/23: Reports no improvement in sx with empiric dilation. No inlet patch or signs of GERD were noted on index EGD. [facility] Medical History Disc degeneration, lumbar HTN (hypertension) Surgical History Hx of colonoscopy No pertinent past surgical history Family History Father No problems noted. Mother Diabetes Hyperlipidemia Hypertension Maternal Grandfather Cancer Social History Housing: House Alcohol intake: current Alcohol intake frequency: holidays/special occasions only Patient Tobacco Use Status: Never used Tobacco Tobacco use type: Cigarette e-Cigarette/Vaping Use: Never Used Second Hand Smoke Exposure: No service: No Current occupational status: disabled Cognitive needs: No Hearing needs: No Vision needs: Yes Review of Systems Const All systems reviewed & are unremarkable except as noted in HPI and below Physical Exam Vital Signs: Last Vital Signs Pulse 84 06/12/23 12:38 BP 118/81 06/12/23 12:38 BMI result Body Mass Index 35.6 Gen appear: NAD HEENT: nonicteric, no cervical lymphadenopathy Chest: CTA CVS: Regular S1/S2 Abd: soft, nontender, nondistended, bowel sounds + Ext: no peripheral edema Neuro: A/Ox3, noted to move all extremities spontaneously Psych: interacting appropriately Assessment & Plan Assessment & Plan (1) Globus sensation: Code(s): R09.89 - Other specified symptoms and signs involving the circulatory and respiratory systems Plan Reviewed that next step would be a pH study to see if there is any association between silent reflux events and throat clearing adriane as he did not respond to PPI trial. He is agreeable to proceed. This will be booked on an elective basis. In the meantime, he would like to proceed with trial of neuromodulation. Plan: - EGD with pH study to be booked - Start nortriptyline 10 and increase to 20 after 4 weeks - Re-evaluation in office in 8 weeks Medications: New nortriptyline Increase to 2 caps at night after 30 days 10 mg PO BEDTIME 90 caps 1RF Coding Level of Care Code Est Pt Level 4 (54465) Diagnoses Globus sensation R09.89
[2023-06-12 12:38] VITALS: BP 118/81; PULSE 84; BMI 35.6
== END 2023-06-12 13:25 | disposition home or self-care (01) ==
PROVIDERS: PCP Physician Assistant; Visit Provider Internal Medicine
DX: R09.89 Other specified symptoms and signs involving the circulatory and respiratory systems (principal)
CPT/HCPCS: 99214

== ENCOUNTER → 2023-06-12 12:29 | Outpatient (BNVA) | payer MEDICARE, MEDICAID, SELFPAY | PROVIDERS: PCP Physician Assistant; Visit Provider Internal Medicine | DX: F45.8 Other somatoform disorders (principal); R09.89 Other specified symptoms and signs involving the circulatory and respiratory systems; Z98.890 Other specified postprocedural states | CPT/HCPCS: 99212 ==

== ENCOUNTER 2023-06-25 08:12 | Outpatient (REF) | payer MEDICARE, MEDICAID, SELFPAY ==
--- NOTE | ~2023-06-25 | FL_ITS ---
EXAMINATION: XR FLUOROSCOPY ESOPHAGRAM WITH AIR CLINICAL INFORMATION: Patient complaining of globus sensation. COMPARISON: 12/09/2013. TECHNIQUE: Standard esophagram was performed utilizing air contrast with thick and thin barium and effervescent granules. Numerous fluoroscopic spot images were obtained. FINDINGS: The oropharyngeal and hypopharyngeal phases of swallowing appeared normal. No aspiration or laryngeal penetration was evident. There was normal epiglottic motion and soft palate elevation. No diverticula seen. Somewhat prominent palatine tonsils and lingula tonsils were noted. Esophagus demonstrates normal caliber without evidence of stricture, mass, or mucosal abnormality. The primary peristaltic wave was propulsive, although followed by multiple tertiary contractions which were minimally propulsive. Findings are consistent has with mild presbyesophagus. No hiatus hernia present. No evidence of GE reflux. Limited images of the stomach, duodenal bulb, and duodenal sweep demonstrate no abnormalities. FLUOROSCOPY TIME: 5.1 minutes Images taken: 45. DOSE AREA PRODUCT: 57.063 uGy-m2 (microgray-meter squared) FL/FL barium swallow with air IMPRESSION: 1. No evidence of aspiration or laryngeal penetration. Somewhat prominent palatine and lingual tonsils noted. No real imaging explanation for globus sensation. 2. Mild presbyesophagus. 3. No evidence of hiatus hernia or GE reflux. 4. Grossly normal stomach and duodenal sweep.
== END 2023-06-25 08:13 | disposition home or self-care (01) ==
LOC: HO.XRAY 08:12
PROVIDERS: PCP Physician Assistant; Visit Provider Internal Medicine
DX: R09.89 Other specified symptoms and signs involving the circulatory and respiratory systems (principal)
CPT/HCPCS: 74221

== ENCOUNTER → 2023-06-25 08:14 | Outpatient (BNV) | payer MEDICARE, MEDICAID, SELFPAY | PROVIDERS: PCP Physician Assistant; Visit Provider Radiology Diagnostic Radiology | DX: R09.89 Other specified symptoms and signs involving the circulatory and respiratory systems (principal) | CPT/HCPCS: 74221 ==

== ENCOUNTER 2023-09-21 08:47 | Outpatient (REF) | payer MEDICARE, MEDICAID, SELFPAY ==
[2023-09-21 09:10] LABS: Hematocrit 46.6 % (42.0-52.0); Hemoglobin 15.3 g/dl (14.0-18.0); Mean Corpuscular HGB Conc 32.8 g/dl (31.0-36.0); Mean Corpuscular Hemoglobin 27.9 pg (27.0-33.0); Mean Corpuscular Volume 84.9 fL (80.0-98.0); Mean Platelet Volume 9.5 fL (9.4-12.4); Platelet Count 270 X10*3/uL (160-400); Red Blood Count 5.49 X10*6/uL (4.60-5.80); Red Cell Distribution Width 13.2 % (11.0-16.0); White Blood Count 6.7 X10*3/uL (4.8-10.8)
[2023-09-21 10:01] LABS: Alanine Aminotransferase 30 U/L (0-40); Albumin Level 4.2 g/dL (3.5-5.0); Alkaline Phosphatase 67 U/L (39-117); Anion Gap 11 (12-20); Aspartate Amino Transferase 20 U/L (5-37); Bilirubin Total 0.8 mg/dL (0.0-1.0); Blood Urea Nitrogen 16 mg/dL (9-16); Calcium 9.1 mg/dL (8.4-10.2); Carbon Dioxide 28 mmol/L (22-29); Chloride 103 mmol/L (96-108); Cholesterol 247 mg/dL (<200); Estimated Glomerular Filt Rate > 60; Glucose Fasting 112 mg/dL (60-99); HDL Cholesterol 36 mg/dL (>40); LDL Cholesterol Calculated 176 mg/dL (<100); Potassium 4.1 mmol/L (3.3-5.1); Sodium 138 mmol/L (135-145); Triglycerides 176 mg/dL (<150)
[2023-09-21 10:07] LABS: TSH reflex Free T4 3.04 uIU/mL (0.32-4.0)
== END 2023-09-21 08:48 | disposition home or self-care (01) ==
LOC: HO.LAB 08:47
PROVIDERS: PCP Physician Assistant; Visit Provider Physician Assistant
DX: I10 Essential (primary) hypertension (principal); E78.2 Mixed hyperlipidemia; E03.9 Hypothyroidism, unspecified
CPT/HCPCS: 36415; 80053; 80061; 84443; 85027

== ENCOUNTER 2023-09-23 08:58 | Outpatient (AMB) | payer MEDICARE, SELFPAY ==
[2023-09-23 09:03] VITALS: BP 128/86; PULSE 97; O2SAT 96; BMI 35.3
--- NOTE | 2023-09-23 09:03 | MHC.PC.OV ---
Vital Signs 09/23/23 09:03 Height 5 ft 10 in Weight 246 lb 4 oz BMI 35.3 BP 128/86 Blood Pressure Location Lt brachial Position Sitting Pulse 97 Pulse Source Pulse Oximeter Pulse Oximetry (%) 96 Oxygen Delivery Method Room Air Intake Visit Reasons: f/u HTN/ HLD Mixologist Required: No Accompanied by: Self / Same As Patient Allergies valium Allergy (Unknown, Uncoded 09/23/23 09:23) Unconscious Medication List - Last Reconciled 09/23/23 by Paras Gutierrez PA-C atorvastatin 40 mg PO DAILY 90 days cyclobenzaprine 10 mg PO Q8H PRN 30 days ibuprofen 800 mg PO Q8H PRN 30 days oxycodone 10 mg PO Q6H PRN 5 days Tobacco use date assessed: 04/21/23 Dental Screening Dental Screen Date: 09/23/23 Did you have a dental visit in the last 12 months?: No Did you have a dental problem in the last 6 months where you did not have access to dental care?: No Was dental information given to patient?: Yes HPI f/u HTN/ HLD HPI Details Patient is a 58-year-old male here today for a follow-up visit.? Patient has a past medical history significant for hyperlipidemia, obesity, L1 compression fracture, chronic lower back pain. Globus sensation: Not seeing a supervisor special services for his glous sensation. Has gotten endoscopy without any significant findings. Has trialed PPI therapy though has not been effective. Will be undergoing pH study. .. Lumbar disc disease:? Continues to have intermittent lumbar spine pain. Pain is better when in [place]. ? Does use oxycodone on a very limited p.r.n. basis. Was advised on pain management though declines my offers. .. Hyperlipidemia:? Recent labs showing elevated total cholesterol and improved LDL.? He does report not taking a statin.? Advised to restart statin therapy for better blood cholesterol control. . Obese:? Patient does understand his BMI is over 30 and will work on being more physically active in adapting to better eating habits to reduce his weight. Laboratory Tests 04/17/23 04/17/23 04/17/23 08:26 08:26 08:26 RBC Hgb Creatinine Fasting Glucose 101 H Triglycerides 221 Cholesterol 234 LDL Cholesterol, C alc 04/17/23 09/21/23 09/21/23 08:26 08:57 08:57 RBC 5.49 Hgb 15.3 Creatinine 0.94 Fasting Glucose 112 H Triglycerides 176 H Cholesterol LDL Cholesterol, C alc 152 09/21/23 09/21/23 08:57 08:57 RBC Hgb Creatinine Fasting Glucose Triglycerides Cholesterol 247 H LDL Cholesterol, C alc 176 H PFSH Medical History Disc degeneration, lumbar HTN (hypertension) Surgical History Hx of colonoscopy No pertinent past surgical history Family History Father No problems noted. Mother Diabetes Hyperlipidemia Hypertension Maternal Grandfather Cancer Social History Housing: House Alcohol intake: current Alcohol intake frequency: holidays/special occasions only Patient Tobacco Use Status: Never used Tobacco Tobacco use type: Cigarette e-Cigarette/Vaping Use: Never Used Second Hand Smoke Exposure: No service: No Current occupational status: disabled Cognitive needs: No Hearing needs: No Vision needs: Yes Questionnaire Thrive Questionnaire Date Thrive assessed: 04/21/23 JOHN-7 AMB Questionnaire JOHN-7 Date JOHN - 7 assessed: 04/21/23 Source: Developed by Drs. Richard Jaquez, Ivet Lee, Seymour Joyce and colleagues, with an educational mariam from [employer]. Review of Systems Const Denies headache(s) Eyes Denies loss of vision ENT Denies vertigo, Denies dizziness, Denies headache(s) and Denies sore throat Card Denies chest pain, Denies leg edema and Denies lightheadedness Resp Denies cough, Denies hemoptysis and Denies wheezing GI Denies abdominal pain, Denies melena, Denies constipation, Denies diarrhea and Denies vomiting Denies dysuria, Denies urinary frequency and Denies urinary urgency Musc Denies arthralgias, Denies joint swelling, Denies numbness and Denies tingling Neuro Denies Abnormal speech present, Denies behavioral changes, Denies vertigo, Denies dizziness, Denies headache(s), Denies loss of vision, Denies memory loss, Denies numbness and Denies tingling Psych Denies anxiety, Denies behavioral changes, Denies depression, Denies memory loss and Denies panic attacks Rell/Lymph Denies easy bleeding and Denies easy bruising Aller/Immun Denies wheezing Physical exam (Primary Care) Vital Signs: Last Vital Signs Pulse 97 09/23/23 09:03 BP 128/86 09/23/23 09:03 Pulse Ox 96 09/23/23 09:03 Oxygen Delivery Method Room Air 09/23/23 09:03 BMI result Body Mass Index 35.3 BMI Assessment/Plan discussion: High Tobacco/Smoking Status: Tobacco use Status Tobacco use date assessed 04/21/23 09/23/23 09:07 Patient Tobacco Use Status Never used Tobacco 09/23/23 09:07 Tobacco use type Cigarette 09/23/23 09:07 e-Cigarette/Vaping Use Never Used 09/23/23 09:07 Thrive Assessment: Date of Thrive Assessment Date Thrive assessed 04/21/23 09/23/23 09:07 Const Other: OBESE General: no acute distress, alert and awake Nutritional Appearance: well nourished Orientation/consciousness: oriented to person, oriented to place and oriented to time HENMT Ears: TM's normal bilaterally General nose exam: Normal nasal mucous membranes and turbinates present Eyes Conjunctivae: conjunctivae normal Sclerae: sclerae normal Pupils: Equal, round and reactive pupils present Neck Neck: Yes no lymphadenopathy and Yes no JVD Thyroid: Thyroid normal Carotids: no bruits Resp Effort & Inspection: normal respiratory effort and not tachypneic Auscultation: no crackles, no rales, no rhonchi and no wheezes Cardio Rate: regular rate Rhythm: regular rhythm Heart sounds: no murmurs and normal S1 and S2 GI Palpation (GI): Soft to palpation, nontender, no hepatomegaly and no splenomegaly Auscultation: normal bowel sounds Skin General skin exam: no rashes or lesions noted and dry skin Neuro General: oriented to person, oriented to place and oriented to time Cranial nerves: Yes Equal, round and reactive pupils present Speech: No Abnormal speech present Gait exam (Neuro): Normal gait present Motor exam (neuro): no tremor noted Extrem Right upper extremity: full ROM Left upper extremity: full ROM Right lower extremity: full ROM; no edema Left lower extremity: full ROM; no edema Psych Mental Status: mental status grossly normal Speech and movement: Normal speech and movement present Affect: normal affect Attitude: cooperative Thought process: Normal thought process present Office Procedures Flu Questionnaire Does the patient have a severe egg allergy?: No Does the patient have severe life threatening allergies?: No Does the patient have a fever or illness today?: No Has the patient ever had Guillain-Philippi Syndrome?: No Has the patient ever had any past reaction to a flu shot?: No Immunizations flu vacc [id number] 6mos up(PF) 60 mcg(15 mcgx4)/0.5 mL IM syringe Performing Provider: Paras Gutierrez PA-C Per[facility] Administered by: MIC Thompson on 09/23/23 09:30 Dose Route Admin Location Dispensed Lot Number Expiration Date NDC Pupil Personnel Services Director 0.5 mL IM Left Deltoid 0.5 mL [id number] 05/08/24 [id number] [employer] VIS Given Date VIS Provided VIS Publication Date 09/23/23 Single Vaccine 21 Eligibility Eligibility Date Funding Source Not [facility] Eligible 09/23/23 Private Assessment and Plan Assessment & Plan (1) HTN (hypertension): Code(s): I10 - Essential (primary) hypertension Qualifiers: Hypertension type: primary hypertension Qualified Code(s): I10 - Essential (primary) hypertension Plan: Patient's blood pressure acceptable today in office, continue current dose of antihypertensive medication goal pressure to be below 140/90 (2) Globus sensation: Code(s): R09.89 - Other specified symptoms and signs involving the circulatory and respiratory systems Plan: Follow-up with GI and reports he will be getting endoscopy in near future. (3) HLD (hyperlipidemia): Code(s): E78.5 - Hyperlipidemia, unspecified Qualifiers: Hyperlipidemia type: mixed hyperlipidemia Qualified Code(s): E78.2 - Mixed hyperlipidemia Plan: Patient's most recent fasting panel showing elevated total cholesterol and LDL. He reports trying to work on low-cholesterol diet. He has stopped using his cholesterol medication. Advised to make lifestyle modifications, continue current dose statin therapy at this time. Goal LDL to be below 130 ADVISED TO RESTART CHOLESTEROL MEDICATION AFTER HIS PROCEDURE (4) Compression fracture of L1 vertebra: Code(s): S32.010A - Wedge compression fracture of first lumbar vertebra, initial encounter for closed fracture Qualifiers: Encounter type: sequela Qualified Code(s): S32.010S - Wedge compression fracture of first lumbar vertebra, sequela Plan: Has history of compression fracture of L1 vertebrae, he reports he re-injured his back recently will helping him friend move. Does use cyclobenzaprine and low-dose oxycodone on a p.r.n. basis for lower back pain. (5) Hypothyroid: Code(s): E03.9 - Hypothyroidism, unspecified Qualifiers: Hypothyroidism type: acquired Qualified Code(s): E03.9 - Hypothyroidism, unspecified Plan: Most recent TSH stable. Will continue his current dose of levothyroxine. Has been able to lose a few lb since last office visit. Orders: Orders Influenza [id number] Immunization Today Z23 - Encounter for immunization Microalbumin, Random (w Creat) 6 Months I10 - Essential (primary) hypertension TSH reflex Free T4 6 Months E03.9 - Hypothyroidism, unspecified Lipid Panel 6 Months E78.2 - Mixed hyperlipidemia Comprehensive [place]. Panel Fast 6 Months I10 - Essential (primary) hypertension Medications: New zolpidem 5 mg PO BEDTIME 10 days PRN 10 tabs 0RF sleep G47.00 - Insomnia, unspecified Refilled cyclobenzaprine 10 mg PO Q8H 30 days PRN 90 tabs 1RF Muscle spasm S32.010S - Wedge compression fracture of first lumbar vertebra, sequela atorvastatin 40 mg PO DAILY 90 days 90 tabs 1RF E78.5 - Hyperlipidemia, unspecified ibuprofen 800 mg PO Q8H 30 days PRN 90 tabs 1RF pain S32.010S - Wedge compression fracture of first lumbar vertebra, sequela oxycodone 10 mg PO Q6H 5 days PRN 20 tabs 0RF pain S32.010S - Wedge compression fracture of first lumbar vertebra, sequela Coding Level of Care Code Est Pt Level 4 (44648) Diagnoses Primary hypertension I10 Hypertension type: primary hypertension Globus sensation R09.89 Mixed hyperlipidemia E78.2 Hyperlipidemia type: mixed hyperlipidemia Compression fracture of L1 vertebra, sequela S32.010S Encounter type: sequela Acquired hypothyroidism E03.9 Hypothyroidism type: acquired
== END 2023-09-23 09:46 | disposition home or self-care (01) ==
PROVIDERS: PCP Physician Assistant; Visit Provider Physician Assistant
DX: I10 Essential (primary) hypertension (principal); R09.89 Other specified symptoms and signs involving the circulatory and respiratory systems; S32.010S Wedge compression fracture of first lumbar vertebra, sequela; Z23 Encounter for immunization; E78.2 Mixed hyperlipidemia; E03.9 Hypothyroidism, unspecified
CPT/HCPCS: 90471; 90686; 99214

== ENCOUNTER 2023-09-30 07:21 | Day surgery (SDC) | payer MEDICARE, SELFPAY ==
--- NOTE | 2023-09-29 09:59 | HO.ANESPROP2 ---
Documented by User: Johnna Dodson NP 09/29/23 10:00 HPI - Anesthesia Eval Consult details Narrative: 58yo M for Upper Endo Bey s/p EGD 05/2023 with MAC PMFSH Active Problems Active Problems: All Active Problems (Updated 09/23/23 @ 09:37 by Paras Gutierrez PA-C) Insomnia (Acute) Pharyngitis (Acute) BPH associated with nocturia (Acute) Hypothyroid (Acute) HTN (hypertension) (Acute) Globus sensation (Acute) Obese (Acute) Annual physical exam (Acute) Compression fracture of L1 vertebra (Acute) HLD (hyperlipidemia) (Acute) Medicare annual wellness visit, initial (Acute) Sciatica (Acute) Past Medical History Medical History Disc degeneration, lumbar HTN (hypertension) Family History Family History Father No problems noted. Mother Diabetes Hyperlipidemia Hypertension Maternal Grandfather Cancer Family history of problems with anesthesia: No Surgical History Surgical History Hx of colonoscopy No pertinent past surgical history History of Problems with Anesthesia: No Social History Housing: House Alcohol intake: current Alcohol intake frequency: holidays/special occasions only Patient Tobacco Use Status: Never used Tobacco Tobacco use type: Cigarette e-Cigarette/Vaping Use: Never Used Second Hand Smoke Exposure: No service: No Current occupational status: disabled Cognitive needs: No Hearing needs: No Vision needs: Yes Meds Allergies Allergy/AdvReac Type Severity Reaction Status Date / Time valium Allergy Unknown Unconscious Uncoded 09/23/23 09:23 Exam Pertinent Lab Results Pertinent Lab Results: Laboratory Tests 09/21/23 08:57 WBC 6.7 Hgb 15.3 Hct 46.6 Plt Count 270 Sodium 138 Potassium 4.1 Chloride 103 Carbon Dioxide 28 BUN 16 Creatinine 0.94 Assessment and Plan Assessment Anesthesia Assessment: Chart Reviewed Final Anesthetic Review Family History of Problems with Anesthesia: No History of Problems with Anesthesia: No Documented by User: Reinaldo Epperson MD 09/29/23 21:44 [facility] Past Medical History Medical History Disc degeneration, lumbar HTN (hypertension) Family History Family History Father No problems noted. Mother Diabetes Hyperlipidemia Hypertension Maternal Grandfather Cancer Surgical History Surgical History Hx of colonoscopy No pertinent past surgical history Social History Housing: House Alcohol intake: current Alcohol intake frequency: holidays/special occasions only Patient Tobacco Use Status: Never used Tobacco Tobacco use type: Cigarette e-Cigarette/Vaping Use: Never Used Second Hand Smoke Exposure: No service: No Current occupational status: disabled Cognitive needs: No Hearing needs: No Vision needs: Yes Meds Allergies Allergy/AdvReac Type Severity Reaction Status Date / Time valium Allergy Unknown Unconscious Uncoded 09/23/23 09:23 Exam Airway Mallampati Class: III TM Dist: >3cm Neck ROM: Limited Heart: rr Lungs: cta Assessment and Plan Assessment Anesthesia Assessment: Anesthesia Plan Discussed Final Anesthetic Review NPO: Yes ASA Class: III Final Preanesthetic Review: No Changes in Pt Med Stat, Meds/Allgs Chart Reviewed, Consent Obtained/Reviewed and Anes Risks/Benef Reviewed Patient Risk: Intermediate Procedure Risk: Intermediate Anesthetic Plan Anesthetic Plan: MAC: and Agree w/ Assess. and Plan Disposition: Standard PACU
[2023-09-30 07:49] VITALS: BMI 35.7
[2023-09-30 07:54] VITALS: BP 134/79; PULSE 90; RESP 18; TEMP 37.3; O2SAT 96
[2023-09-30] MEDS: Lactated Ringers 1,000 ML 100 ML IVCONT (07:56)
--- NOTE | 2023-09-30 08:18 | MHC.SHP ---
Pre-Procedural Eval Section A Date of Service: 09/30/23 Section B Chief Complaint: GERD Relevant Family History (Specify if Yes): No Relevant Social History: None Present Medications: see Short Stay Collaborative assessment Medical History: Significant History (Disc degeneration, lumbar HTN (hypertension) History of Previous Operations: Relevant previous surgery/procedure and date(s) (colonsocopy) Allergies: Allergies Allergy/AdvReac Type Severity Reaction Status Date / Time valium Allergy Severe Unconscious Uncoded 09/30/23 06:08 Review of Systems Sugical H&P ROS: Negative: Constitution, Cardiovascular, Respiratory, Neurological, Psychiatric, Hem-Onc, Allergic/Immunologic, Gastrointestinal, Genitourinary, Musculoskeletal, Integumentary, Endocrine and Eyes/Ears/Nose/Throat Exam Surgical H&P Exam: Normal: HEENT, Normal: Heart, Normal: Lungs, Normal: Extremities, Normal: Abdomen, Normal: Skin and Normal: Neurological Plan Diagnosis/Plan: Unchanged I have reviewed the history and physical and performed a pertinent physical examination on my patient. No changes have occurred unless specified. Time Spent With Patient Time: Total time managing care of this patient today ____ minutes.
--- NOTE | 2023-09-30 08:41 | W.PM.OPN ---
Operative Note Operative Note Date of Service: 09/30/23 Narrative: Procedure Description: EGD Indication: GERD Anesthesia: MAC FLEXIBLE TRANSORAL UPPER GASTROINTESTINAL ENDOSCOPY UPPER ENDOSCOPY Consent: Indications for the procedure and potential complications of bleeding, perforation, reaction to medications and missed diagnosis were discussed with the patient and informed consent was obtained. Instrument: Olympus GIF H 190 J mid size upper endoscope Monitoring: Vital signs and clinical assessment, continuous EKG monitoring, Pulse oximetry, Carbon Dioxide monitoring and blood pressure monitoring were done throughout the procedure. Procedure: The patient was placed in the left lateral decubitis position and pre-procedure medications were administered and a bite block was placed. The endoscope was inserted into the mouth and advanced under direct vision to the third part of duodenum. A careful inspection was made as the upper endoscope was withdrawn including a retroflexed examination of the proximal stomach; Findings and interventions are described below. Findings: Larynx:normal Esophagus: GE junction at 40 cm, diaphragm hiatus at 40 cm, no varices or esophagitis, bx taken from GEJ, distal and proximal esophagus, also 5-7 mm papilloma removed from the distal esophagus---GRIJALVA was deployed successfully at 34 cm--initial pH 4.4 Stomach: Patchy gastric erythema. Biopsies were obtained. Grade 2 flap valve on retroflexed examination of the cardia. Duodenum: Normal bulb and descending duodenum, Intervention: Biopsies as noted above, GRIJALVA placement Impression/Findings: gastritis esophageal papilloma PLAN: await bx read GRIJALVA when returned (has been off PPI) repeat EGD in 1 yr or so due to papilloma
[2023-09-30 08:50] VITALS: BP 106/54; PULSE 107; RESP 12; TEMP 36.4; O2SAT 96
[2023-09-30 09:05] VITALS: BP 129/60; PULSE 96; RESP 18; TEMP 36.9; O2SAT 95
== END 2023-09-30 09:45 | disposition home or self-care (01) ==
PROVIDERS: PCP Physician Assistant; Visit Provider Internal Medicine Gastroenterology
PROC: (CPT 43239; principal; 2023-09-30 08:30)
DX: K21.9 Gastro-esophageal reflux disease without esophagitis (principal); Z80.0 Family history of malignant neoplasm of digestive organs; K29.50 Unspecified chronic gastritis without bleeding; B96.81 Helicobacter pylori [H. pylori] as the cause of diseases classified elsewhere; D13.0 Benign neoplasm of esophagus; I10 Essential (primary) hypertension; E78.5 Hyperlipidemia, unspecified; R09.89 Other specified symptoms and signs involving the circulatory and respiratory systems; Z79.1 Long term (current) use of non-steroidal anti-inflammatories (NSAID); Z88.8 Allergy status to other drugs, medicaments and biological substances
CPT/HCPCS: 43239; 88305; 88342; J2704

== ENCOUNTER → 2023-09-30 07:21 | Outpatient (BNV) | payer MEDICARE, SELFPAY ==
--- NOTE | 2023-10-16 10:36 | MHC.OFFVIS ---
Intake Intake Visit Reasons: Gastroesophageal reflux disease (GERD) Allergies valium Allergy (Severe, Uncoded 09/30/23 06:08) Unconscious PFSH Medical History Disc degeneration, lumbar HTN (hypertension) Surgical History Hx of colonoscopy No pertinent past surgical history Family History Father No problems noted. Mother Diabetes Hyperlipidemia Hypertension Maternal Grandfather Cancer Social History Housing: House Alcohol intake: current Alcohol intake frequency: holidays/special occasions only Patient Tobacco Use Status: Never used Tobacco Tobacco use type: Cigarette e-Cigarette/Vaping Use: Never Used Second Hand Smoke Exposure: No service: No Current occupational status: disabled Cognitive needs: No Hearing needs: No Vision needs: Yes Office Procedures AMB Capsule Endoscopy Procedure Notes: GRIJALVA 24 hr pH study pos study, with high [place]ter, patient was off PPI, highest score was on D#1 but lower on D#2 uncertain if he had taken any meds Capsule Endoscopy CPT Code: 41246 - [facility] Assessment & Plan Assessment & Plan (1) GERD (gastroesophageal reflux disease): Code(s): K21.9 - Gastro-esophageal reflux disease without esophagitis Plan restart PPI after h pylori treatment Coding Level of Care Code Procedure Only Diagnoses GERD (gastroesophageal reflux disease) K21.9 CPT Codes AMB Capsule Endoscopy - Capsule Endoscopy CPT Code: 30850 - [facility] ([id number])
== END ==
PROVIDERS: PCP Physician Assistant; Visit Provider Internal Medicine Gastroenterology
DX: K29.70 Gastritis, unspecified, without bleeding (principal); K22.81 Esophageal polyp; K21.9 Gastro-esophageal reflux disease without esophagitis
CPT/HCPCS: 43239; 91035

== ENCOUNTER 2024-04-19 08:50 | Outpatient (REF) | payer MEDICARE, MEDICAID, SELFPAY ==
[2024-04-19 10:02] LABS: Alanine Aminotransferase 39 U/L (0-40); Albumin Level 4.3 g/dL (3.5-5.0); Alkaline Phosphatase 70 U/L (39-117); Anion Gap 15 (12-20); Aspartate Amino Transferase 22 U/L (5-37); Bilirubin Total 0.5 mg/dL (0.0-1.0); Blood Urea Nitrogen 20 mg/dL (9-16); Calcium 9.6 mg/dL (8.4-10.2); Carbon Dioxide 27 mmol/L (22-29); Chloride 103 mmol/L (96-108); Cholesterol 258 mg/dL (<200); Estimated Glomerular Filt Rate > 60; Glucose Fasting 113 mg/dL (60-99); HDL Cholesterol 41 mg/dL (>40); LDL Cholesterol Calculated 181 mg/dL (<100); Sodium 141 mmol/L (135-145); Total Protein 7.1 g/dL (6.5-8.0); Triglycerides 181 mg/dL (<150)
[2024-04-19 10:19] LABS: TSH reflex Free T4 4.68 uIU/mL (0.32-4.0)
[2024-04-19 11:33] LABS: Free T4 (Free Thyroxine) 0.86 ng/dL (0.71-1.85)
[2024-04-19 12:03] LABS: Creatinine Urine 209.92 mg/dL; Microalbum/Creatinine Ratio Ur 9.5 ug/mg cr (<30)
== END 2024-04-19 08:51 | disposition home or self-care (01) ==
LOC: HO.LAB 08:50
PROVIDERS: PCP Physician Assistant; Visit Provider Physician Assistant
DX: E03.9 Hypothyroidism, unspecified (principal); E78.2 Mixed hyperlipidemia; I10 Essential (primary) hypertension
CPT/HCPCS: 36415; 80053; 80061; 82043; 82570; 84439; 84443

== ENCOUNTER 2024-04-25 09:56 | Outpatient (AMB) | payer MEDICARE, MEDICAID, SELFPAY ==
[2024-04-25 10:35] VITALS: BP 126/88; PULSE 90; O2SAT 97; BMI 36.3
--- NOTE | 2024-04-25 10:35 | A.OFFPC_ITS ---
Vital Signs 04/25/24 10:35 Height 5 ft 10 in Weight 253 lb 2 oz BMI 36.3 BP 126/88 Blood Pressure Location Lt brachial Position Sitting Pulse 90 Pulse Source Pulse Oximeter Pulse Oximetry (%) 97 Oxygen Delivery Method Room Air Intake Visit Reasons: physical Intake Note: Patient is here today for a physical. 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 Accompanied by: Self / Same As Patient Allergies valium Allergy (Severe, Uncoded 04/25/24 10:51) Unconscious Medication List - Last Reconciled 04/25/24 by Praas Gutierrez PA-C cyclobenzaprine 10 mg PO Q8H PRN 30 days ibuprofen 800 mg PO Q8H PRN 30 days oxycodone 10 mg PO Q6H PRN 5 days zolpidem 5 mg PO BEDTIME PRN 10 days Tobacco use date assessed: 04/25/24 Dental Screening Dental Screen Date: 04/25/24 Did you have a dental visit in the last 12 months?: Yes Did you have a dental problem in the last 6 months where you did not have access to dental care?: No Was dental information given to patient?: Patient has dentist HPI physical HPI Details Patient is a 58-year-old male here today for a physical.? Patient has a past medical history significant for hyperlipidemia, obesity, history of L1 compression fracture and chronic lower back pain. .. Lumbar disc disease:? Continues to have intermittent lumbar spine pain. Pain is better when in [place]. ? Does use oxycodone on a very limited p.r.n. basis. Was advised on pain management though declines my offers. .. Hyperlipidemia:? Recent labs showing elevated total cholesterol and improved LDL.? He does report not taking a statin.? Advised to restart statin therapy for better blood cholesterol control. . Obese:? Patient does understand his BMI is over 30 and will work on being more physically active in adapting to better eating habits to reduce his weight. .. Elevated TSH: Noted slightly elevated TSH on most recent labs. He does admit to family history of hypothyroidism. He is willing to start levothyroxine Colonoscopy: need Up to date Colonoscopy.. Vaccines: Up-to-date with COVID vaccine, up-to-date with tetanus vaccine, considering shingles vaccine [facility] Medical History HTN (hypertension) Disc degeneration, lumbar Surgical History Hx of colonoscopy No pertinent past surgical history Family History (Updated 04/25/24 @ 10:55 by Paras Gutierrez PA-C) Father No problems noted. Mother Diabetes Hyperlipidemia Hypertension Alzheimer disease Maternal Grandfather Cancer Social History Housing: House Alcohol intake: current Alcohol intake frequency: holidays/special occasions only Patient Tobacco Use Status: Never used Tobacco Tobacco use type: Cigarette e-Cigarette/Vaping Use: Never Used Second Hand Smoke Exposure: No service: No Current occupational status: disabled Cognitive needs: No Hearing needs: No Vision needs: Yes Questionnaire PHQ-9 Over the last 2 weeks, how often have you been bothered by any of the following problems? 1. Little interest or pleasure in doing things: not at all 2. Feeling down, depressed, or hopeless: not at all 3. Trouble falling or staying asleep, or sleeping too much: not at all 4. Feeling tired or having little energy: not at all 5. Poor appetite or overeating: not at all 6. Feeling bad about yourself - or that you are a failure or have let yourself or your family down: not at all 7. Trouble concentrating on things, such as reading the newspaper or watching television: not at all 8. Moving or speaking so slowly that other people could have noticed. Or the opposite - being so fidgety or restless that you have been moving around a lot more than usual: not at all 9. Thoughts that you would be better off or of hurting yourself in some way: not at all Total score: 0 Depression Screening Interpretation: Negative Depression Screening Done: Yes 72157 - PHQ-9 Billing: Yes Source: Developed by Drs. Richard Jaquez, Ivet Lee, Seymour Joyce and colleagues, with an educational mariam from [employer]. Thrive Questionnaire Date Thrive assessed: 04/25/24 I am a: Patient What is your living situation today?: I have a steady place to live Within the past 12 months, did the food you bought not last and you didn't have the money to get more?: Never true Within the past 12 months, did you worry whether your food would run out before you got money to buy more?: Never true Do you have trouble paying for medicines?: No Do you have trouble getting transportation to medical appointments?: No Do you have trouble paying your heating and electricity bill?: No Do you have trouble taking care of your child, family member or friend?: No Do you have trouble with day-to-day activities such as bathing, preparing meals, shopping, managing finances, etc.?: No Are you currently unemployed and looking for a job?: No Are you interested in more education?: No Please select the resources that you would like help with: None Currently or been in a relationship where the following occur: no concerns reported THRIVE Score: 0 AUDIT C Alcohol Use Questionnaire (AUDIT-C) 1. How often do you have a drink containing alcohol?: Monthly or less 2. How many drinks containing alcohol do you have on a typical day when you are drinking?: 1 or 2 3. How often do you have six or more drinks on one occasion?: Never Total Score: 1 JOHN-7 AMB Questionnaire JOHN-7 Date JOHN - 7 assessed: 04/25/24 Feeling nervous, anxious, or on edge: 0 = Not at all Not being able to stop or control worryin = Not at all Worrying too much about different things: 0 = Not at all Trouble relaxin = Not at all Being so restless that it is hard to sit still: 0 = Not at all Becoming easily annoyed or irritable: 0 = Not at all Feeling afraid as if something awful might happen: 0 = Not at all Total JOHN-7 score (0-4 normal; 5-9 mild; 10-14 moderate; 15-21 severe): 0 Source: Developed by Drs. Richard Jaquez, Ivet Lee, Seymour Joyce and colleagues, with an educational mariam from [employer]. JOHN-7 Assessment Billing JOHN-7 Assessment Tool: JOHN-7 Assessment 76241 Review of Systems Const Denies body aches, Denies chills, Denies excessive sweating, Denies fatigue, Denies fever(s) and Denies headache(s) Eyes Denies blurry vision ENT Denies dysphagia, Denies vertigo, Denies dizziness, Denies headache(s), Denies hearing loss and Denies tinnitus Card Denies chest pain, Denies chest pain with activity, Denies syncope, Denies irregular heart rhythm and Denies dyspnea Resp Denies chest congestion, Denies cough, Denies hemoptysis, Denies dyspnea and Denies wheezing GI Denies abdominal pain, Denies melena, Denies hematochezia, Denies coffee ground emesis, Denies dysphagia, Denies diarrhea, Denies nausea and Denies vomiting Denies difficulty urinating, Denies dysuria, Denies urinary frequency, Denies urinary hesitancy and Denies urinary urgency Musc Denies arthralgias, Denies limited range of motion, Denies muscle cramps and Denies muscle weakness Skin/Breast Denies rash and Denies skin ulcer Neuro Denies Abnormal speech present, Denies confusion, Denies vertigo, Denies dizziness, Denies syncope, Denies headache(s), Denies memory loss and Denies seizure-like activity Psych Denies anxiety, Denies confusion, Denies depression, Denies memory loss, Denies panic attacks and Denies paranoia Endo Denies excessive sweating, Denies fatigue, Denies flushing, Denies polydipsia and Denies polyuria Aller/Immun Denies wheezing Physical exam (Primary Care) Vital Signs: Last Vital Signs Pulse 90 04/25/24 10:35 BP 126/88 04/25/24 10:35 Pulse Ox 97 04/25/24 10:35 Oxygen Delivery Method Room Air 04/25/24 10:35 BMI result Body Mass Index 36.3 Tobacco/Smoking Status: Tobacco use Status Tobacco use date assessed 04/25/24 04/25/24 10:43 Patient Tobacco Use Status Never used Tobacco 04/25/24 10:35 Tobacco use type Cigarette 04/25/24 10:35 e-Cigarette/Vaping Use Never Used 04/25/24 10:35 PHQ-9: PHQ-9 Score PHQ-9: Total score 0 04/25/24 10:54 Depression Screening Interpretation: Negative Thrive Assessment: Date of Thrive Assessment Date Thrive assessed 04/25/24 04/25/24 10:43 Currently or been in a relationship where the following occur: no concerns reported Const General: cooperative, comfortable, no acute distress, alert and awake; No confusion Orientation/consciousness: oriented to person, oriented to place, patient oriented x3 and No confusion HENMT Head: Yes normocephalic Ears: external ears normal and TM's normal bilaterally Face and sinus: No sinus tenderness Mouth: Normal oral and palatal mucosa present and tongue normal Teeth and gingiva: dentition normal and gingiva normal Throat: Yes posterior oropharynx normal, Yes tonsils normal and Yes uvula midline Eyes Conjunctivae: conjunctivae normal Sclerae: sclerae normal Pupils: Equal, round and reactive pupils present EOM: EOMs intact bilaterally Direct Ophthalmoscopy: No no photophobia Neck Neck: Yes no lymphadenopathy, No tender and Yes no JVD Thyroid: Thyroid normal Carotids: no bruits Chest Chest palpation & inspection: no tenderness Resp Effort & Inspection: normal respiratory effort, no audible wheezes, not labored and no stridor Auscultation: no crackles, no rales, no rhonchi and no wheezes Cardio Jugular venous distension: no JVD Rate: regular rate, not bradycardic and not tachycardic Rhythm: regular rhythm Bruits: no carotid bruits Peripheral pulses: Peripheral pulses 2+ throughout GI Inspection: Yes normal to inspection, No abdominal wall ecchymosis and No visible herniation Palpation (GI): Soft to palpation, nontender, no guarding, not rigid and No hepatosplenomegaly present Auscultation: normoactive bowel sounds General: Yes no CVA tenderness Back/Spine/Pelvis Back: no CVA tenderness and No back tenderness Cervical Spine: cervical ROM normal Thoracic/Lumbar Spine: thoracic and lumbar spine normal to inspection, straight leg raise negative bilaterally, No thoraco-lumbar ROM limited and No lumbar spinal tenderness Skin Lesions: no lesions Rashes: no rashes Wounds: no wounds Neuro General: oriented to person, oriented to place, patient oriented x3, CN's II-XI intact bilaterally and No confusion Cranial nerves: Yes Equal, round and reactive pupils present and Yes Normal accommodation reflex present Cognition (Neuro): normal cognition Speech: No Abnormal speech present Gait exam (Neuro): Normal gait present Motor exam (neuro): 5/5 motor strength present throughout Extrem Right upper extremity: full ROM; no cyanosis Left upper extremity: full ROM; no cyanosis Right lower extremity: no edema Left lower extremity: no edema Psych Appearance: grossly normal Mental Status: mental status grossly normal Affect: normal affect Attitude: cooperative Thought process: Normal thought process present Assessment and Plan Assessment & Plan (1) Annual physical exam: Code(s): Z00.00 - Encounter for general adult medical examination without abnormal findings (2) HTN (hypertension): Code(s): I10 - Essential (primary) hypertension Qualifiers: Hypertension type: primary hypertension Qualified Code(s): I10 - Essential (primary) hypertension Plan: Patient's blood pressure acceptable today in office, continue current dose of antihypertensive medication goal pressure to be below 140/90 (3) HLD (hyperlipidemia): Code(s): E78.5 - Hyperlipidemia, unspecified Qualifiers: Hyperlipidemia type: mixed hyperlipidemia Qualified Code(s): E78.2 - Mixed hyperlipidemia Plan: Patient's most recent fasting panel showing elevated total cholesterol and LDL. He reports trying to work on low-cholesterol diet. He has stopped using his cholesterol medication. Advised to make lifestyle modifications and restart medication Goal LDL to be below 130 (4) Compression fracture of L1 vertebra: Code(s): S32.010A - Wedge compression fracture of first lumbar vertebra, initial encounter for closed fracture Qualifiers: Encounter type: sequela Qualified Code(s): S32.010S - Wedge compression fracture of first lumbar vertebra, sequela Plan: Has history of compression fracture of L1 vertebrae, he reports he re-injured his back recently will helping him friend move. Does use cyclobenzaprine and low-dose oxycodone on a p.r.n. basis for lower back pain. (5) Hypothyroid: Code(s): E03.9 - Hypothyroidism, unspecified Qualifiers: Hypothyroidism type: acquired Qualified Code(s): E03.9 - Hypothyroidism, unspecified Plan: Most recent TSH slightly elevated. Will restart levothyroxine 25 mcg. Has been able to lose a few lb since last office visit. Orders: Orders TSH reflex Free T4 04/25/24 E03.9 - Hypothyroidism, unspecified Prostate Specific Antigen Scr 04/25/24 E03.9 - Hypothyroidism, unspecified, Z12.5 - Encounter for screening for malignant neoplasm of prostate Lipid Panel 04/25/24 E78.2 - Mixed hyperlipidemia Comprehensive [place]. Panel Fast 04/25/24 E78.2 - Mixed hyperlipidemia Complete Blood Count no Diff 04/25/24 E78.2 - Mixed hyperlipidemia Medications: New levothyroxine 25 mcg PO DAILY 30 days 30 tabs 1RF E03.9 - Hypothyroidism, unspecified atorvastatin 10 mg PO DAILY 90 days 90 tabs 1RF E78.2 - Mixed hyperlipidemia Refilled oxycodone 10 mg PO Q6H 5 days PRN 20 tabs 0RF pain S32.010S - Wedge compression fracture of first lumbar vertebra, sequela zolpidem 5 mg PO BEDTIME 10 days PRN 10 tabs 0RF sleep G47.00 - Insomnia, unspecified Patient Instructions: Goal: Blood pressure to remain below 140/90, Control hypothyroidism Barriers: Adherence to physical activity and healthy eating habits Coding Level of Care Code Est Pt Prev Care 40-64y(46713) Diagnoses Annual physical exam Z00.00 Primary hypertension I10 Hypertension type: primary hypertension Mixed hyperlipidemia E78.2 Hyperlipidemia type: mixed hyperlipidemia Compression fracture of L1 vertebra, sequela S32.010S Encounter type: sequela Acquired hypothyroidism E03.9 Hypothyroidism type: acquired Additional Codes JOHN-7 Assessment Billing - JOHN-7 Assessment Tool: JOHN-7 Assessment 01100 ([id number])
== END 2024-04-25 11:13 | disposition home or self-care (01) ==
PROVIDERS: PCP Physician Assistant; Visit Provider Physician Assistant
DX: Z00.00 Encounter for general adult medical examination without abnormal findings (principal); I10 Essential (primary) hypertension; E78.2 Mixed hyperlipidemia; S32.010D Wedge compression fracture of first lumbar vertebra, subsequent encounter for fracture with routine healing; E03.9 Hypothyroidism, unspecified
CPT/HCPCS: 99396

== ENCOUNTER 2024-09-24 08:12 | Outpatient (REF) | payer MEDICARE, MEDICAID, SELFPAY ==
[2024-09-24 10:11] LABS: Hematocrit 44.8 % (42.0-52.0); Hemoglobin 15.1 g/dl (14.0-18.0); Mean Corpuscular HGB Conc 33.7 g/dl (31.0-36.0); Mean Corpuscular Hemoglobin 28.5 pg (27.0-33.0); Mean Corpuscular Volume 84.5 fL (80.0-98.0); Platelet Count 235 X10*3/uL (160-400); Red Cell Distribution Width 13.4 % (11.0-16.0); White Blood Count 5.4 X10*3/uL (4.8-10.8)
[2024-09-24 11:32] LABS: Prostate Specific Antigen Scr 2.48 ng/mL (<0.05-4.0)
[2024-09-24 12:21] LABS: Alanine Aminotransferase 46 U/L (0-40); Albumin Level 4.1 g/dL (3.5-5.0); Alkaline Phosphatase 65 U/L (39-117); Anion Gap 12 (12-20); Aspartate Amino Transferase 28 U/L (5-37); Bilirubin Total 0.4 mg/dL (0.0-1.0); Blood Urea Nitrogen 15 mg/dL (9-16); Calcium 9.1 mg/dL (8.4-10.2); Carbon Dioxide 27 mmol/L (22-29); Chloride 105 mmol/L (96-108); Cholesterol 259 mg/dL (<200); Estimated Glomerular Filt Rate > 60; Glucose Fasting 117 mg/dL (60-99); HDL Cholesterol 43 mg/dL (>40); Potassium 3.8 mmol/L (3.3-5.1); Sodium 140 mmol/L (135-145); TSH reflex Free T4 3.76 uIU/mL (0.32-4.0); Total Protein 6.6 g/dL (6.5-8.0)
[2024-09-24 12:36] LABS: LDL Cholesterol Calculated 189 mg/dL (<100); Triglycerides 139 mg/dL (<150)
== END 2024-09-24 08:13 | disposition home or self-care (01) ==
LOC: HO.LAB 08:12
PROVIDERS: PCP Physician Assistant; Visit Provider Physician Assistant
DX: E78.2 Mixed hyperlipidemia (principal); E03.9 Hypothyroidism, unspecified; Z12.5 Encounter for screening for malignant neoplasm of prostate
CPT/HCPCS: 36415; 80053; 80061; 84153; 84443; 85027

== ENCOUNTER 2024-09-27 13:42 | Outpatient (AMB) | payer MEDICARE, MEDICAID, SELFPAY ==
[2024-09-27 13:58] VITALS: BP 152/96; PULSE 105; O2SAT 98; BMI 37.4
--- NOTE | 2024-09-27 13:58 | A.OFFPC_ITS ---
Vital Signs 09/27/24 13:58 Height 5 ft 10 in Weight 260 lb 8 oz BMI 37.4 BP 152/96 H Blood Pressure Location Lt brachial Position Sitting Pulse 105 H Pulse Source Pulse Oximeter Pulse Oximetry (%) 98 Oxygen Delivery Method Room Air Intake Visit Reasons: f/u HLD/ Hypothyroid Intake Note: The patient is here for a routine follow-up. They will be leaving the [facility] to [place] with a return date to be determined, possibly returning during warmer weather. The patient is requesting a 90-day supply of their prescription. 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 Accompanied by: Self / Same As Patient Allergies valium Allergy (Severe, Uncoded 09/27/24 14:08) Unconscious Medication List - Last Reconciled 09/27/24 by Paras Gutierrez PA-C atorvastatin 10 mg PO DAILY 90 days cyclobenzaprine 10 mg PO Q8H PRN 30 days ibuprofen 800 mg PO Q8H PRN 30 days levothyroxine 25 mcg PO DAILY 30 days oxycodone 10 mg PO Q6H PRN 5 days zolpidem 5 mg PO BEDTIME PRN 10 days Tobacco use date assessed: 04/25/24 Dental Screening Dental Screen Date: 04/25/24 HPI f/u HLD/ Hypothyroid HPI Details Patient is a 59-year-old male here today for follow-up visit Patient has a past medical history significant for hyperlipidemia, obesity, history of L1 compression fracture and chronic lower back pain. .. Lumbar disc disease:? Continues to have intermittent lumbar spine pain. Pain is better when in [place]. ? Does use oxycodone on a very limited p.r.n. basis. Was advised on pain management though declines my offers. .. Hyperlipidemia:? Recent labs showing elevated total cholesterol and improved LDL.? He does report not taking a statin as he had ran out of the prescription.? Advised to restart statin therapy for better blood cholesterol control. . Obese:? Patient does understand his BMI is over 30 and will work on being more physically active in adapting to better eating habits to reduce his weight. .. Elevated TSH: Most recent TSH stabilize. Will continue levothyroxine 25 mcg Laboratory Tests 09/21/23 04/19/24 04/19/24 08:57 08:58 09:00 RBC Creatinine 0.90 Fasting Glucose 113 H ALT Cholesterol 247 H 258 H LDL Cholesterol, C alc 181 H TSH 4.68 H Urine Microalbumin 20.0 09/24/24 08:48 RBC 5.30 Creatinine Fasting Glucose 117 H ALT 46 H Cholesterol 259 H LDL Cholesterol, C alc 189 H TSH 3.76 Urine Microalbumin PFSH Medical History HTN (hypertension) Disc degeneration, lumbar Surgical History Hx of colonoscopy No pertinent past surgical history Family History Father No problems noted. Mother Diabetes Hyperlipidemia Hypertension Alzheimer disease Maternal Grandfather Cancer Social History Housing: House Alcohol intake: current Alcohol intake frequency: holidays/special occasions only Patient Tobacco Use Status: Never used Tobacco Tobacco use type: Cigarette e-Cigarette/Vaping Use: Never Used Second Hand Smoke Exposure: No service: No Current occupational status: disabled Cognitive needs: No Hearing needs: No Vision needs: Yes Questionnaire PHQ-9 Over the last 2 weeks, how often have you been bothered by any of the following problems? 1. Little interest or pleasure in doing things: not at all 2. Feeling down, depressed, or hopeless: not at all 3. Trouble falling or staying asleep, or sleeping too much: not at all 4. Feeling tired or having little energy: not at all 5. Poor appetite or overeating: not at all 6. Feeling bad about yourself - or that you are a failure or have let yourself or your family down: not at all 7. Trouble concentrating on things, such as reading the newspaper or watching television: not at all 8. Moving or speaking so slowly that other people could have noticed. Or the opposite - being so fidgety or restless that you have been moving around a lot more than usual: not at all 9. Thoughts that you would be better off or of hurting yourself in some way: not at all Total score: 0 Depression Screening Interpretation: Negative Depression Screening Done: Yes 20666 - PHQ-9 Billing: Yes Source: Developed by Drs. Richard L. Ivet Jaquez Kurt Kroenke and colleagues, with an educational mariam from [employer]. Thrive Questionnaire Date Thrive assessed: 09/27/24 I am a: Patient What is your living situation today?: I have a steady place to live Within the past 12 months, did the food you bought not last and you didn't have the money to get more?: Never true Within the past 12 months, did you worry whether your food would run out before you got money to buy more?: Never true Do you have trouble paying for medicines?: No Do you have trouble getting transportation to medical appointments?: No Do you have trouble paying your heating and electricity bill?: No Do you have trouble taking care of your child, family member or friend?: No Do you have trouble with day-to-day activities such as bathing, preparing meals, shopping, managing finances, etc.?: No Are you currently unemployed and looking for a job?: No Are you interested in more education?: No Please select the resources that you would like help with: None Currently or been in a relationship where the following occur: No concerns reported THRIVE Score: 0 AUDIT C Alcohol Use Questionnaire (AUDIT-C) 1. How often do you have a drink containing alcohol?: Monthly or less 2. How many drinks containing alcohol do you have on a typical day when you are drinking?: 1 or 2 3. How often do you have six or more drinks on one occasion?: Never Total Score: 1 JOHN-7 AMB Questionnaire JOHN-7 Date JOHN - 7 assessed: 09/27/24 Feeling nervous, anxious, or on edge: 0 = Not at all Not being able to stop or control worryin = Not at all Worrying too much about different things: 0 = Not at all Trouble relaxin = Not at all Being so restless that it is hard to sit still: 0 = Not at all Becoming easily annoyed or irritable: 0 = Not at all Feeling afraid as if something awful might happen: 0 = Not at all Total JOHN-7 score (0-4 normal; 5-9 mild; 10-14 moderate; 15-21 severe): 0 Source: Developed by Ivet Gamez Kurt Kroenke and colleagues, with an educational mariam from [employer]. JOHN-7 Assessment Billing JOHN-7 Assessment Tool: JOHN-7 Assessment 06894 Review of Systems Const Denies headache(s) Eyes Denies loss of vision ENT Denies vertigo, Denies dizziness, Denies headache(s) and Denies sore throat Card Denies chest pain, Denies leg edema and Denies lightheadedness Resp Denies cough, Denies hemoptysis and Denies wheezing GI Denies abdominal pain, Denies melena, Denies constipation, Denies diarrhea and Denies vomiting Denies dysuria, Denies urinary frequency and Denies urinary urgency Musc Denies arthralgias, Denies joint swelling, Denies numbness and Denies tingling Neuro Denies Abnormal speech present, Denies behavioral changes, Denies vertigo, Denies dizziness, Denies headache(s), Denies loss of vision, Denies memory loss, Denies numbness and Denies tingling Psych Denies anxiety, Denies behavioral changes, Denies depression, Denies memory loss and Denies panic attacks Rell/Lymph Denies easy bleeding and Denies easy bruising Aller/Immun Denies wheezing Physical exam (Primary Care) Vital Signs: Last Vital Signs Pulse 105 H 09/27/24 13:58 BP 152/96 H 09/27/24 13:58 Pulse Ox 98 09/27/24 13:58 Oxygen Delivery Method Room Air 09/27/24 13:58 BMI result Body Mass Index 37.4 Tobacco/Smoking Status: Tobacco use Status Tobacco use date assessed 04/25/24 09/27/24 14:00 Patient Tobacco Use Status Never used Tobacco 09/27/24 14:00 Tobacco use type Cigarette 09/27/24 14:00 e-Cigarette/Vaping Use Never Used 09/27/24 14:00 Depression Screening Interpretation: Negative Thrive Assessment: Date of Thrive Assessment Date Thrive assessed 04/25/24 09/27/24 14:00 Currently or been in a relationship where the following occur: No concerns reported Const General: healthy appearing, no acute distress, alert and awake Nutritional Appearance: well nourished Orientation/consciousness: oriented to person, oriented to place and oriented to time HENMT Ears: TM's normal bilaterally General nose exam: Normal nasal mucous membranes and turbinates present Eyes Conjunctivae: conjunctivae normal Sclerae: sclerae normal Pupils: Equal, round and reactive pupils present Neck Neck: Yes no lymphadenopathy and Yes no JVD Thyroid: Thyroid normal Carotids: no bruits Resp Effort & Inspection: normal respiratory effort and not tachypneic Auscultation: no crackles, no rales, no rhonchi and no wheezes Cardio Rate: regular rate Rhythm: regular rhythm Heart sounds: no murmurs and normal S1 and S2 GI Palpation (GI): Soft to palpation, nontender, no hepatomegaly and no splenomegaly Auscultation: normal bowel sounds Skin General skin exam: no rashes or lesions noted and dry skin Neuro General: oriented to person, oriented to place and oriented to time Cranial nerves: Yes Equal, round and reactive pupils present Speech: No Abnormal speech present Gait exam (Neuro): Normal gait present Motor exam (neuro): no tremor noted Extrem Right upper extremity: full ROM Left upper extremity: full ROM Right lower extremity: full ROM; no edema Left lower extremity: full ROM; no edema Psych Mental Status: mental status grossly normal Speech and movement: Normal speech and movement present Affect: normal affect Attitude: cooperative Thought process: Normal thought process present Office Procedures Flu Questionnaire Does the patient have a severe egg allergy?: No Does the patient have severe life threatening allergies?: No Does the patient have a fever or illness today?: No Has the patient ever had Guillain-[place] Syndrome?: No Has the patient ever had any past reaction to a flu shot?: No Immunizations Fluarix Triv [id number] (PF) 45 mcg (15 mcg x 3)/0.5 mL IM syringe Performing Provider: Paras Gutierrez PA-C [facility] [place] [facility] Administered by: MIC Thompson on 09/27/24 14:08 Dose Route Admin Location Dispensed Lot Number Expiration Date NDC Grape Pruner 0.5 mL IM Right Deltoid 0.5 mL [id number] 05/08/25 17903-185-45 Hipster VIS Given Date VIS Provided VIS Publication Date 09/27/24 Single Vaccine 21 Eligibility Eligibility Date Funding Source Not [facility] Eligible 09/27/24 Private Coding Level of Care Code Est Pt Level 4 (46412) Diagnoses Primary hypertension I10 Hypertension type: primary hypertension Mixed hyperlipidemia E78.2 Hyperlipidemia type: mixed hyperlipidemia Acquired hypothyroidism E03.9 Hypothyroidism type: acquired Primary insomnia F51.01 Insomnia type: primary Colon cancer screening Z12.11 Additional Codes JOHN-7 Assessment Billing - JOHN-7 Assessment Tool: JOHN-7 Assessment [id number] ([id number]) PHQ-9 - 78180 - PHQ-9 Billing: Yes ([id number]) Assessment & Plan Assessment & Plan (1) HTN (hypertension): Code(s): I10 - Essential (primary) hypertension Category: Medical Qualifiers: Hypertension type: primary hypertension Qualified Code(s): I10 - Essential (primary) hypertension Plan: Patient's blood pressure elevated today in office. Is not taking any blood pressure medication at this time. He admits to dietary indiscretion and sedentary lifestyle. We discuss perhaps starting blood pressure medication though he would like to hold off and do blood pressure monitoring at home. Goal blood pressures to be below 140/90 (2) HLD (hyperlipidemia): Code(s): E78.5 - Hyperlipidemia, unspecified Category: Medical Qualifiers: Hyperlipidemia type: mixed hyperlipidemia Qualified Code(s): E78.2 - Mixed hyperlipidemia Plan: Patient's fasting cholesterol panel showing very elevated total cholesterol and LDL. He reports he has not been taking his cholesterol medication as he has ran out. He will restart atorvastatin 10 mg and take this medication consistently. Advised to call the office when he runs out with medication. There seems to be a compliance issue here. Goal LDL to be below 130 (3) Hypothyroid: Code(s): E03.9 - Hypothyroidism, unspecified Category: Medical Qualifiers: Hypothyroidism type: acquired Qualified Code(s): E03.9 - Hypothyroidism, unspecified Plan: Patient's most recent TSH stabilize. Will continue him on levothyroxine 25 mcg on an empty stomach every morning. Will continue to follow TSH to assure normal. (4) Insomnia: Code(s): G47.00 - Insomnia, unspecified Category: Medical Qualifiers: Insomnia type: primary Qualified Code(s): F51.01 - Primary insomnia Plan: Patient does use zolpidem on an as needed basis for sleep which works wonderfully for him. (5) Colon cancer screening: Code(s): Z12.11 - Encounter for screening for malignant neoplasm of colon Category: Medical Plan: Patient is in needed repeat screening colonoscopy Orders: Orders Microalbumin, Random (w Creat) 6 Months I10 - Essential (primary) hypertension Comprehensive [place]. Panel Fast 6 Months I10 - Essential (primary) hypertension TSH reflex Free T4 6 Months E03.9 - Hypothyroidism, unspecified Influenza [id number] Immunization Today Z23 - Encounter for immunization Lipid Panel 6 Months E78.2 - Mixed hyperlipidemia Prostate Specific Antigen Scr 6 Months E78.2 - Mixed hyperlipidemia, Z12.5 - Encounter for screening for malignant neoplasm of prostate Referrals Gastroenterology Referral Z12.11 - Encounter for screening for malignant neoplasm of colon Medications: Changed From levothyroxine 25 mcg PO DAILY 30 days 30 tabs 1RF E03.9 - Hypothyroidism, unspecified To levothyroxine 25 mcg PO DAILY 90 days 90 tabs 1RF E03.9 - Hypothyroidism, unspecified Refilled atorvastatin 10 mg PO DAILY 90 days 90 tabs 1RF E78.2 - Mixed hyperlipidemia cyclobenzaprine 10 mg PO Q8H 30 days PRN 90 tabs 1RF Muscle spasm S32.010S - Wedge compression fracture of first lumbar vertebra, sequela oxycodone 10 mg PO Q6H 5 days PRN 20 tabs 0RF pain S32.010S - Wedge compression fracture of first lumbar vertebra, sequela zolpidem 5 mg PO BEDTIME 10 days PRN 10 tabs 0RF sleep G47.00 - Insomnia, unspecified ibuprofen 800 mg PO Q8H 30 days PRN 90 tabs 1RF pain S32.010S - Wedge compression fracture of first lumbar vertebra, sequela
== END 2024-09-27 14:27 | disposition home or self-care (01) ==
PROVIDERS: PCP Physician Assistant; Visit Provider Physician Assistant
DX: I10 Essential (primary) hypertension (principal); E78.2 Mixed hyperlipidemia; E03.9 Hypothyroidism, unspecified; F51.01 Primary insomnia; Z12.11 Encounter for screening for malignant neoplasm of colon; Z23 Encounter for immunization

== ENCOUNTER → 2024-09-27 13:42 | Outpatient (BNVA) | payer MEDICARE, MEDICAID, SELFPAY | PROVIDERS: PCP Physician Assistant; Visit Provider Physician Assistant | DX: Z23 Encounter for immunization (principal); I10 Essential (primary) hypertension; E78.2 Mixed hyperlipidemia; E03.9 Hypothyroidism, unspecified; F51.01 Primary insomnia | CPT/HCPCS: 90471; 90656; 96127; 99212 ==

== ENCOUNTER 2025-03-15 14:53 | Outpatient (REF) | payer MEDICARE, MEDICAID, SELFPAY ==
--- NOTE | ~2025-03-15 | XR_ITS ---
EXAMINATION: XR LUMBOSACRAL SPINE CLINICAL INFORMATION: M54.42 - Lumbago with sciatica, left side COMPARISON: August 19, 2021 TECHNIQUE: Three views of the lumbosacral spine. FINDINGS: Endplate sclerosis marginal osteophyte formation and decreased intervertebral disc at multiple levels more pronounced at L5-S1. Superior endplate compression deformity representing 30% volume loss at L1. Superior endplate compression deformity representing 20% volume loss at T12. S-shaped curvature. No acute cortical disruption. Grade 1 retrolisthesis L2-3. Facet joint hypertrophy L5-S1. XR/XR lumbar spine 2-3V IMPRESSION: Multilevel thoracolumbar spondylosis without acute fracture. Grade 1 retrolisthesis L2-3 likely degenerative. Old superior endplate compression deformities, T12-L1. Electronically signed by: Shan Talley MD 03/16/2025 07:11 AM EDT
--- OUTSIDE RECORDS SUMMARY | 2025-03-15 16:26 | XMS_ITS | Clinical Summary ---
Author Organization [employer] Address [address] [place] [address] 7t [place] [address] Care Team Providers Care Real Estate Marketing Coordinator Name Role Phone Unavailable Primary Care Provider [...] Most Recently Relevant to Health Maintenance [facility] STAND ADULT
--- OUTSIDE RECORDS SUMMARY | 2025-03-15 16:26 | XMS_ITS | Clinical Summary ---
Author Organization [facility] ity Address [address] [place] [phone] Care Team Providers Care Physician Compensation Analyst Name Role Phone Unavailable Primary Care Provider [...] PM EDT Office Visit Orthopedic Surgery - [place] [address] [phone] Quang Shirley, DPM [address] [address] Health Maintenance Due Date Last Done Comments [...]
--- OUTSIDE RECORDS SUMMARY | 2025-03-15 16:26 | XMS_ITS | Encounter Summary ---
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 EFFECTIVE SINCE 07/01/2023 documented in this encounter Plan of Treatment Not on file documented as of this encounter Visit Diagnoses Not on filedocumented in this encounter
--- OUTSIDE RECORDS SUMMARY | 2025-03-15 16:26 | XMS_ITS | Encounter Summary ---
Author Organization [employer] [facility] Address [address] [place] [address] 7t [place] [address] Care Team Providers Care Belt Repairer Name Role Phone Unavailable Primary Care Provider [...]
== END 2025-03-15 14:54 | disposition home or self-care (01) ==
LOC: HO.XRAY 14:53
PROVIDERS: PCP Physician Assistant; Visit Provider Internal Medicine
DX: M54.42 Lumbago with sciatica, left side (principal)
CPT/HCPCS: 72100; 96127; 99212

== ENCOUNTER 2025-03-15 14:53 | Outpatient (AMB) | payer MEDICARE, MEDICAID, SELFPAY ==
[2025-03-15 15:11] VITALS: BP 126/80; PULSE 95; O2SAT 97; BMI 36.2
--- NOTE | 2025-03-15 15:11 | A.OFFPC_ITS ---
Vital Signs 03/15/25 15:11 Height 5 ft 10 in Weight 252 lb 6 oz BMI 36.2 BP 126/80 Blood Pressure Location Lt brachial Position Sitting Pulse 95 Pulse Source Pulse Oximeter Pulse Oximetry (%) 97 Oxygen Delivery Method Room Air Intake Visit Reasons: lower back pain Returned Item Clerk Required: No Accompanied by: Self / Same As Patient Allergies valium Allergy (Severe, Uncoded 03/15/25 15:28) Unconscious Medication List - Last Reconciled 03/15/25 by Ray Burkett MD atorvastatin 10 mg PO DAILY 90 days cyclobenzaprine 10 mg PO Q8H PRN 30 days ibuprofen 800 mg PO Q8H PRN 30 days levothyroxine 25 mcg PO DAILY 90 days zolpidem 5 mg PO BEDTIME PRN 10 days Tobacco use date assessed: 03/15/25 Dental Screening Dental Screen Date: 03/15/25 Did you have a dental visit in the last 12 months?: Yes Did you have a dental problem in the last 6 months where you did not have access to dental care?: No Was dental information given to patient?: Patient has dentist HPI lower back pain HPI Details Patient comes in today complaining of increased pain over his left lower back for the past few weeks States that he started experiencing increased pain over his left lower back when he was in [place] about 3 to 4 weeks ago Notes that his symptoms would usually start after prolonged sitting and would gradually ease up after he gets up and walks around for a while States that the pain is mostly over the left side just above his left iliac crest and left hip but would radiate down the left side of his lower back into his left lower leg and feet States that he has been taking his Cyclobenzaprine and Ibuprofen lately with little relief He denies any recent injury or trauma to his lower back but he did have a lumbar spine CT done back in August 2021 that revealed (+) acute compression fracture of the L1 vertebral body, which he sustained from a fall back then He was sent to physical therapy at the time but recalled that he could not tolerate PT due to his increased low back pain then and that his symptoms gradually subsided over some time He denies any acute urinary or bowel symptoms No other acute complaints or symptoms are noted [facility] Medical History HTN (hypertension) Disc degeneration, lumbar Surgical History Hx of colonoscopy No pertinent past surgical history Family History Father No problems noted. Mother Diabetes Hyperlipidemia Hypertension Alzheimer disease Maternal Grandfather Cancer Social History Housing: House Alcohol intake: current Alcohol intake frequency: holidays/special occasions only Patient Tobacco Use Status: Never used Tobacco Tobacco use type: Cigarette e-Cigarette/Vaping Use: Never Used Second Hand Smoke Exposure: No service: No Current occupational status: disabled Cognitive needs: No Hearing needs: No Vision needs: Yes Questionnaire PHQ-9 Over the last 2 weeks, how often have you been bothered by any of the following problems? 1. Little interest or pleasure in doing things: not at all 2. Feeling down, depressed, or hopeless: not at all 3. Trouble falling or staying asleep, or sleeping too much: several days 4. Feeling tired or having little energy: several days 5. Poor appetite or overeating: not at all 6. Feeling bad about yourself - or that you are a failure or have let yourself or your family down: not at all 7. Trouble concentrating on things, such as reading the newspaper or watching television: not at all 8. Moving or speaking so slowly that other people could have noticed. Or the opposite - being so fidgety or restless that you have been moving around a lot more than usual: not at all 9. Thoughts that you would be better off or of hurting yourself in some way: not at all Total score: 2 Depression Screening Interpretation: Negative Depression Screening Done: Yes 96411 - PHQ-9 Billing: Yes Source: Developed by Drs. Richard Jaquez, Ivet Lee, Seymour Joyce and colleagues, with an educational mariam from [employer]. Thrive Questionnaire Date Thrive assessed: 03/15/25 I am a: Patient What is your living situation today?: I have a steady place to live Within the past 12 months, did the food you bought not last and you didn't have the money to get more?: Never true Within the past 12 months, did you worry whether your food would run out before you got money to buy more?: Never true Do you have trouble paying for medicines?: No Do you have trouble getting transportation to medical appointments?: No Do you have trouble paying your heating and electricity bill?: No Do you have trouble taking care of your child, family member or friend?: No Do you have trouble with day-to-day activities such as bathing, preparing meals, shopping, managing finances, etc.?: No Are you currently unemployed and looking for a job?: No Are you interested in more education?: No Please select the resources that you would like help with: None Currently or been in a relationship where the following occur: No concerns reported THRIVE Score: 0 AUDIT C Alcohol Use Questionnaire (AUDIT-C) 1. How often do you have a drink containing alcohol?: Never 3. How often do you have six or more drinks on one occasion?: Never Total Score: 0 Score Reviewed/Action Taken: Yes JOHN-7 AMB Questionnaire JOHN-7 Date JOHN - 7 assessed: 03/15/25 Feeling nervous, anxious, or on edge: 0 = Not at all Not being able to stop or control worryin = Not at all Worrying too much about different things: 0 = Not at all Trouble relaxin = Not at all Being so restless that it is hard to sit still: 0 = Not at all Becoming easily annoyed or irritable: 0 = Not at all Feeling afraid as if something awful might happen: 0 = Not at all Total JOHN-7 score (0-4 normal; 5-9 mild; 10-14 moderate; 15-21 severe): 0 Source: Developed by Drs. Richard Jaquez, Ivet Lee, Seymour Joyce and colleagues, with an educational mariam from [employer]. Review of Systems Const Denies chills, Denies fatigue, Denies fever(s) and Denies headache(s) ENT Denies dysphagia, Denies dizziness, Denies otalgia, Denies headache(s), Denies neck pain, Denies odynophagia and Denies sore throat Card Denies chest pain, Denies palpitations and Denies dyspnea Resp Denies chest congestion, Denies cough and Denies dyspnea GI Denies abdominal pain, Denies constipation, Denies dysphagia, Denies heartburn, Denies diarrhea, Denies nausea, Denies odynophagia and Denies vomiting Denies difficulty urinating, Denies dysuria, Denies nocturia, Denies urinary frequency and Denies urinary incontinence Musc Reports back pain (increased over the left lower back - see HPI for details), Denies neck pain and Reports radiating pain into limb (down left leg) Skin/Breast Denies rash Neuro Denies dizziness and Denies headache(s) Endo Denies fatigue and Denies palpitations Physical exam (Primary Care) Vital Signs: Last Vital Signs Pulse 95 03/15/25 15:11 BP 126/80 03/15/25 15:11 Pulse Ox 97 03/15/25 15:11 Oxygen Delivery Method Room Air 03/15/25 15:11 BMI result Body Mass Index 36.2 Tobacco/Smoking Status: Tobacco use Status Tobacco use date assessed 03/15/25 03/15/25 15:17 Patient Tobacco Use Status Never used Tobacco 03/15/25 15:17 Tobacco use type Cigarette 03/15/25 15:17 e-Cigarette/Vaping Use Never Used 03/15/25 15:17 PHQ-9: PHQ-9 Score PHQ-9: Total score 2 03/15/25 15:17 Depression Screening Interpretation: Negative Thrive Assessment: Date of Thrive Assessment Date Thrive assessed 03/15/25 03/15/25 15:17 Currently or been in a relationship where the following occur: No concerns reported Const General: no acute distress and alert HENMT Ears: TM's normal bilaterally and EAC's normal Throat: Yes posterior oropharynx normal and Yes tonsils normal (no TP congestion) Neck Neck: Yes supple and No lymphadenopathy Thyroid: Thyroid normal Resp Auscultation: clear to auscultation bilaterally, no rales and no wheezes Cardio Rate: regular rate Rhythm: regular rhythm Heart sounds: no murmurs GI Palpation (GI): Soft to palpation and nontender Auscultation: normal bowel sounds General: Yes no CVA tenderness Back/Spine/Pelvis Back: no CVA tenderness Thoracic/Lumbar Spine: paraspinal muscle tenderness on the left in the lower aretha mbar (just above the left iliac crest and left hip area), lumbar spinal tenderness and straight leg raise positive left Skin Rashes: no rashes Extrem General: Yes no clubbing, cyanosis or edema Coding Level of Care Code Est Pt Level 3 (32076) Diagnoses Left-sided low back pain with left-sided sciatica, unspecified chronicity M54.42 Chronicity: unspecified Additional Codes PHQ-9 - 45289 - PHQ-9 Billing: Yes ([id number]) Assessment & Plan Assessment & Plan (1) Left-sided low back pain with left-sided sciatica: Code(s): M54.42 - Lumbago with sciatica, left side Category: Medical Qualifiers: Chronicity: unspecified Qualified Code(s): M54.42 - Lumbago with sciatica, left side Plan: Will send patient for updated lumbar spine x-rays SAIGE for further evaluation He did have a lumbar spine CT done back in 2020 that revealed (+) acute compression fracture of the L1 vertebral body with approximately 15% vertebral height loss anteriorly Depending on how his x-rays come out and with his current left radicular symptoms, it is likely that he will need a new CT or MRI of the lumbar spine for further evaluation at some point Have advised patient to continue for now on his Cyclobenzaprine 10 mg TID PRN Will start him as well on some Tramadol 50 mg TID PRN for increased pain for now Have advised him that he can also try applying some warm compress over his lower back PRN for symptomatic relief Plan To return as scheduled next month for his annual physical examination with his PCP Orders: Orders XR lumbar spine 2-3V Today M54.42 - Lumbago with sciatica, left side Medications: New tramadol 50 mg PO TID PRN 30 tabs 0RF pain
--- OUTSIDE RECORDS SUMMARY | 2025-03-15 15:59 | XMS_ITS | Clinical Summary ---
Author Organization [facility] ity Address [address] [place] [phone] Care Team Providers Care Ground Hand Name Role Phone Unavailable Primary Care Provider Unavailabl e Social History Tobacco Use Types Packs/Day Years Used Date Smoking Tobacco: Never Assessed Sex and Gender Information Value Date Recorded Sex Assigned at Not on file Legal Sex Male 8:29 AM EST Gender Identity Not on file Sexual Orientation Not on file Plan of Treatment Upcoming Encounters Date Type Department Care Team (Late st Contact Info) Description 06/01/2025 2:45 PM EDT Office Visit Orthopedic Surgery - [place] [address] [phone] Quang Shirley, DPM [address] [address] Health Maintenance Due Date Last Done Comments DTaP,Tdap,and Td Vaccines (1 - Tdap) 1984 Hepatitis B Vaccines (1 of 3 - 19+ 3-dose series) 1984 Pneumococcal Vaccine: 50+ Ye ars (1 of 1 - PCV) 2015 Zoster Vaccines (1 of 2) 2015 COVID-19 Vaccine (2023-2 5 season) 2024 Cholesterol Screening (Lipid Panel) 03/13/2025 Colorectal Cancer Screening: Colonoscopy 03/13/2025 Depression Screening 03/13/2025 HIV Screening 03/13/2025 Hepatitis C Screening 03/13/2025 Medicare Annual Wellness Visit 03/13/2025 Social Influencers of Health Screening 03/13/2025 Influenza Vaccine (Season Ended) 2025 RSV Immunization Adult Patie nts (1 - 1-dose 75+ series) 2040 HIB Vaccines Aged Out No longer eligi ble based on patient's age to complete this topic HPV Vaccines Aged Out No longer eligi ble based on patient's age to complete this topic Hepatitis A Vaccines Aged Out No long er eligible based on patient's age to complete this topic IPV Vaccines Aged Out No longer eligi ble based on patient's age to complete this topic MMR Vaccines Aged Out No longer eligi ble based on patient's age to complete this topic Meningococcal ACWY Vaccine Aged Out N o longer eligible based on patient's age to complete this topic Meningococcal B Vaccine Aged Out No l onger eligible based on patient's age to complete this topic Pneumococcal Vaccine: Pediat rics (0 to 5 Years) and At-Risk Patients (6 to 64 Years) Aged Out No longer eligible b ased on patient's age to complete this topic RSV Immunization Patients Un loree 20 months Aged Out No longer eligible b ased on patient's age to complete this topic Varicella Vaccines Aged Out No longer eligible based on patient's age to complete this topic Insurance MEDICARE
--- OUTSIDE RECORDS SUMMARY | 2025-03-15 15:59 | XMS_ITS | Clinical Summary ---
Author Organization [employer] Address [address] [place] [address] [address] [place] [address] Care Team Providers Care Analysis Evaluator Name Role Phone Unavailable Primary Care Provider Unavailabl e Allergies No known active allergies Medications ibuprofen 800 MG tablet Take 800 mg by mouth every 8 (eight) hours if needed. 12/11/2023 Active cyclobenzaprine (Flexeril) 10 MG tablet Take 10 mg by mouth every 8 (eight) hours if needed for muscle spasms. 12/11/2023 Active oxyCODONE (Roxicodone) 10 MG immediate release tablet TAKE 1 TABLET BY MOUTH EVERY 6 HOURS FOR 5 DAYS NEEDED FOR PAIN 12/16/2023 Active atorvastatin (Lipitor) 10 MG tablet 04/25/2024 Active levothyroxine (Synthroid, Levoxyl) 25 MCG tablet 04/25/2024 Active zolpidem (Ambien) 5 MG tablet 04/25/2024 Active Active Problems Problem Noted Date Diagnosed Date Dental calculus 10/03/2024 Periodontal disease 10/03/2024 Advanced periodontitis 10/03/2024 Gingival bleeding 10/03/2024 Social History Tobacco Use Types Packs/Day Years Used Date Smoking Tobacco: Never Smokeless Tobacco: Never Tobacco Cessation:Counseling Given: Not Answered Sex and Gender Information Value Date Recorded Sex Assigned at Male 09/08/2022 10:16 AM EDT Legal Sex Male 10:16 AM EDT Gender Identity Male 03/15/2024 10:15 AM EDT Sexual Orientation Straight 03/15/2024 10 :15 AM EDT Last Filed Vital Signs Vital Sign Reading Time Taken Comments Blood Pressure 132/76 10/03/2024 9:15 AM EST Pulse - - Temperature - - Respiratory Rate - - Oxygen Saturation - - Inhaled Oxygen Concentration - - Weight - - Height - - Body Mass Index - - Plan of Treatment Health Maintenance Due Date Last Done Comments CT Colonography 1965 Colonoscopy 1965 Colorectal Cancer Screening 1965 Depression Screening 1965 FIT DNA/Cologuard 1965 FIT 1965 FOBT 1965 HIV Screening 1965 Lipid Panel 1965 SDOH Screening 1965 Sigmoidoscopy 1965 Alcohol/Substance Use Screening 1977 Hepatitis C Screening 1983 Hepatitis B Vaccines (1 of 3 - 19+ 3-dose series) 1984 Pneumococcal Vaccine: 50+ Years (1 of 1 - PCV) 2015 Zoster Vaccines (1 of 2) 2015 COVID-19 Vaccine (3 - 2023- season) 2024 06/23/2021, 06/02/2021 Dental Oral Exam 10/09/2024 04/07/2024, , 10/12/2017 Dental Prophylaxis 10/27/2024 04/26/2024, 0 07/22/2019, 01/19/2019, Additional history exists DTaP/Tdap/Td Vaccines (2 - Td or Tdap) 12/11/2024 12/11/2014 Tobacco Screening 10/03/2025 10/03/2024 Dental X-Ray: Bitewings 10/04/2025 10/03/20 24, 04/07/2024, 01/19/2019, Additional history exists Dental X-Ray: Full Mouth 04/08/2027 04/07/2024, 12/02/2017 RSV Patients and Patients Aged 60 years or older (1 - 1-dose 75+ series) 2040 Influenza Vaccine Completed 09/27/2024, 09/23/2023 HIB Vaccines Aged Out No longer eligi [...] patient's age to complete this topic Meningococcal Vaccine Aged Out No gianni frank eligible based on patient's age to complete this topic RSV under 20 months Aged Out No longe r eligible based on patient's age to complete this topic Rotavirus Vaccines Aged Out No longer eligible based on patient's age to complete this topic Procedures Procedure Name Priority Date/Time Associated Diagnosis Comments BITEWINGS - 3 RADIOGRAPHIC IMAGES Routine 10/03/2024 9:00 AM EST Dental calculus Advanced periodontitis Gingival bleeding PROPHYLAXIS - ADULT Routine 04/26/2024 1 1:00 AM EDT Dental calculus Dental plaque Subgingival dental calculus Periodontal disease INTRAORAL - COMPLETE SERIES OF RADIOGRAPHIC IMAGES Routine 04/07/2024 2:00 PM EDT PERIODIC ORAL EVALUATION - ESTABLISHED PATIENT Routine 04/07/2024 2:00 PM EDT from Last 3 Months or Most Recently Relevant to Health Maintenance Insurance [facility] MEDICARE [facility]AL-[facility] MEDICAID STAND ADULT
--- OUTSIDE RECORDS SUMMARY | 2025-03-15 15:59 | XMS_ITS | Encounter Summary ---
Author Organization [employer] Address [address] [facility] 7t [place] [address] Care Team Providers Care Silk Screen Frame Assembler Name Role Phone Unavailable Primary Care Provider Unavailabl e Reason for Visit * Reason Onset Date Comments New Patient 07/01/2023 Encounter Details Date Type Department Care Team (Late st Contact Info) Description 07/01/2023 Telephone [facility] MED[facility]INE 230 [place] [address] Matthew Lanza MD 230 [place] [address] New Patient Social History Tobacco Use Types Packs/Day Years Used Date Smoking Tobacco: Never Assessed Sex and Gender Information Value Date Recorded Sex Assigned at Male 09/08/2022 10:16 AM EDT Legal Sex Male 10:16 AM EDT Gender Identity Male 03/15/2024 10:15 AM EDT Sexual Orientation Straight 03/15/2024 10 :15 AM EDT documented as of this encounter Miscellaneous Notes * Telephone Encounter - Shaq Salazar - 07/01/2023 1:08 PM EDT 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 EFFECTIVE SINCE 07/01/2023 documented in this encounter Plan of Treatment Not on file documented as of this encounter Visit Diagnoses Not on filedocumented in this encounter
--- OUTSIDE RECORDS SUMMARY | 2025-03-15 15:59 | XMS_ITS | Encounter Summary ---
Author Organization [employer] [facility] Address [address] [place] [address] 7t [place] [address] Care Team Providers Care Forward Air Controller/Air Officer Name Role Phone Unavailable Primary Care Provider Unavailabl e Encounter Details Date Type Department Care Team (Latest Contact Info) Description 01/19/2019 Abstract [facility] CONVERSIONS Dental, Provider, DDS Social History Tobacco Use Types Packs/Day Years Used Date Smoking Tobacco: Never Assessed Sex and Gender Information Value Date Recorded Sex Assigned at Male 09/08/2022 10:16 AM EDT Legal Sex Male 10:16 AM EDT Gender Identity Male 03/15/2024 10:15 AM EDT Sexual Orientation Straight 03/15/2024 10 :15 AM EDT documented as of this encounter Plan of Treatment Not on file documented as of this encounter Visit Diagnoses Not on filedocumented in this encounter
== END 2025-03-15 15:37 | disposition home or self-care (01) ==
LOC: HO.HMCH 14:54
PROVIDERS: PCP Physician Assistant; Visit Provider Internal Medicine
DX: M54.42 Lumbago with sciatica, left side (principal)

== ENCOUNTER → 2025-03-15 15:47 | Outpatient (BNV) | payer MEDICARE, MEDICAID, SELFPAY | PROVIDERS: PCP Physician Assistant; Visit Provider Radiology Diagnostic Radiology | DX: M54.42 Lumbago with sciatica, left side (principal) | CPT/HCPCS: 72100 ==

== ENCOUNTER 2025-03-22 08:29 | Outpatient (REF) | payer MEDICARE, MEDICAID, SELFPAY ==
--- OUTSIDE RECORDS SUMMARY | 2025-03-22 08:46 | XMS_ITS | Clinical Summary ---
Author Organization [employer] [facility] Address [address] [place] [address] 7t [place] [address] Care Team Providers Care Wire Transfer Clerk Name Role Phone Unavailable Primary Care Provider [...] Most Recently Relevant to Health Maintenance [facility] STAND ADULT
--- OUTSIDE RECORDS SUMMARY | 2025-03-22 08:46 | XMS_ITS | Encounter Summary ---
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 EFFECTIVE SINCE 07/01/2023 documented in this encounter Plan of Treatment Not on file documented as of this encounter Visit Diagnoses Not on filedocumented in this encounter
--- OUTSIDE RECORDS SUMMARY | 2025-03-22 08:46 | XMS_ITS | Clinical Summary ---
Author Organization [facility] ity Address [address] [place] [phone] Care Team Providers Care Steel Burner Name Role Phone Unavailable Primary Care Provider [...] PM EDT Office Visit Orthopedic Surgery - [place] [address] [phone] Quang Shirley, DPM [address] [address] Health Maintenance Due Date Last Done Comments [...]
--- OUTSIDE RECORDS SUMMARY | 2025-03-22 08:46 | XMS_ITS | Encounter Summary ---
Author Organization [employer] [facility] Address [address] [facility] 7t [place] [address] Care Team Providers Care Manager Financial Reporting Name Role Phone Unavailable Primary Care Provider [...]
[2025-03-22 10:27] LABS: Creatinine Urine 313.17 mg/dL; Microalbum/Creatinine Ratio Ur 44.7 ug/mg cr (<30)
[2025-03-22 10:40] LABS: Alanine Aminotransferase 47 U/L (0-40); Albumin Level 4.2 g/dL (3.5-5.0); Alkaline Phosphatase 80 U/L (39-117); Anion Gap 15 (12-20); Aspartate Amino Transferase 33 U/L (5-37); Bilirubin Total 0.4 mg/dL (0.0-1.0); Blood Urea Nitrogen 16 mg/dL (9-16); Calcium 8.9 mg/dL (8.4-10.2); Carbon Dioxide 23 mmol/L (22-29); Chloride 107 mmol/L (96-108); Cholesterol 268 mg/dL (<200); Estimated Glomerular Filt Rate > 60; Glucose Fasting 119 mg/dL (60-99); HDL Cholesterol 44 mg/dL (>40); LDL Cholesterol Calculated 182 mg/dL (<100); Potassium 4.4 mmol/L (3.3-5.1); Sodium 141 mmol/L (135-145); Total Protein 7.3 g/dL (6.5-8.0); Triglycerides 213 mg/dL (<150)
[2025-03-22 10:49] LABS: TSH reflex Free T4 4.35 uIU/mL (0.32-4.0)
[2025-03-22 10:55] LABS: Prostate Specific Antigen Scr 3.26 ng/mL (<0.05-4.0)
[2025-03-22 11:21] LABS: Free T4 (Free Thyroxine) 0.78 ng/dL (0.71-1.85)
== END 2025-03-22 08:30 | disposition home or self-care (01) ==
LOC: HO.LAB 08:29
PROVIDERS: PCP Physician Assistant; Visit Provider Physician Assistant
DX: K59.00 Constipation, unspecified (principal); I10 Essential (primary) hypertension; E03.9 Hypothyroidism, unspecified; E78.2 Mixed hyperlipidemia; Z12.5 Encounter for screening for malignant neoplasm of prostate; Z86.0100 Personal history of colon polyps, unspecified; M54.42 Lumbago with sciatica, left side
CPT/HCPCS: 36415; 80053; 80061; 82043; 82570; 84153; 84439; 84443; 99212

== ENCOUNTER 2025-03-22 10:24 | Outpatient (AMB) | payer MEDICARE, MEDICAID, SELFPAY ==
--- NOTE | 2025-03-22 10:27 | A.OFFVIS_ITS ---
Vital Signs 03/22/25 10:28 Height 5 ft 10 in Weight 251 lb 5.231 oz BMI 36.1 BP 140/85 H Blood Pressure Location Lt brachial Position Sitting Pulse 98 Intake Visit Reasons: Discuss Colonoscopy Intake Note: Lalito presents in the office as a follow up to discuss having a colonoscopy. CC: He states that he was in [place] and the Dr he seen last week told him that he needs to be seen because he got pains in the left lower side of the back that went down. He had a XRAY and gave him tramadol for the pains. Today when he went to the bathroom he had lots of gas with a very little amount of stool. When he urinates he feels something different as well. Antisqueak Filler Required: No Allergies valium Allergy (Severe, Uncoded 03/22/25 10:28) Unconscious HPI Comments Details: 59 y.o M with PMH of GERD, esophageal papilloma, tubular adenoma 2018 who is here to schedule a repeat colo. Pt reports no active GI issues. No abd pain, N,V,D. Has in fact been constipated. Has only had 1 BM in the last 3 days. Main complaint is lumbar paraspinal pain and stiffness. Sometimes pain goes down the L leg. Last colo 2018 - Dr Jaswinder dailey prep. 2 mm tubular adenoma. [facility] Medical History HTN (hypertension) Disc degeneration, lumbar Surgical History Hx of colonoscopy No pertinent past surgical history Family History Father No problems noted. Mother Diabetes Hyperlipidemia Hypertension Alzheimer disease Maternal Grandfather Cancer Social History Housing: House Alcohol intake: current Alcohol intake frequency: holidays/special occasions only Patient Tobacco Use Status: Never used Tobacco Tobacco use type: Cigarette e-Cigarette/Vaping Use: Never Used Second Hand Smoke Exposure: No service: No Current occupational status: disabled Cognitive needs: No Hearing needs: No Vision needs: Yes Review of Systems Const All systems reviewed & are unremarkable except as noted in HPI and below Physical Exam Vital Signs: Last Vital Signs Pulse 98 03/22/25 10:28 BP 140/85 H 03/22/25 10:28 BMI result Body Mass Index 36.1 No apparent distress Nonicteric Abdomen soft, nondistended Alert and oriented x3, normal gait Assessment & Plan Assessment & Plan (1) Constipation: Code(s): K59.00 - Constipation, unspecified Category: Medical (2) Personal history of colonic polyps: Code(s): Z86.0100 - Personal history of colon polyps, unspecified Category: Medical (3) Left-sided low back pain with left-sided sciatica: Code(s): M54.42 - Lumbago with sciatica, left side Category: Medical Qualifiers: Chronicity: unspecified Qualified Code(s): M54.42 - Lumbago with sciatica, left side Plan 1. Occasional consitpation likely 2/2 dietary changes, inadequate hydration and fiber. Plan: - add fiber supplement - take miralax daily or every other day - add senna 2 tabs if no response to above 2. Hx of polyp Due for repeat colo this year. Pt requests miralax/gtrd prep. Plan: - Instructions reviewed - Pt aware this will be booked on elective basis 3. L sided back and leg pain Advised to discuss further imaging such as mri with pcp since pain persistent > 3 months despite medical management Follow up after colo Medications: New sennosides (senna) 17.2 mg (2 x 8.6 mg) PO DAILY PRN 90 tabs 0RF constipation polyethylene glycol 3350 (Miralax) mix in 64 oz gatorade for colonoscopy prep 238 grams PO ONCE 238 grams 0RF polyethylene glycol 3350 (Miralax) take this daily, if no bowel movement for 2 days 17 grams PO DAILY 90 days PRN 238 grams 0RF constipation Coding Level of Care Code Est Pt Level 4 (18220) Diagnoses Constipation K59.00 Personal history of colonic polyps Z86.0100 Left-sided low back pain with left-sided sciatica, unspecified chronicity M54.42 Chronicity: unspecified
[2025-03-22 10:28] VITALS: BP 140/85; PULSE 98; BMI 36.1
--- OUTSIDE RECORDS SUMMARY | 2025-03-22 11:26 | XMS_ITS | Encounter Summary ---
Author Organization [employer] [facility] Address [address] [facility] 7t [place] [address] Care Team Providers Care Medical Laboratory Technologist Name Role Phone Unavailable Primary Care Provider [...]
--- OUTSIDE RECORDS SUMMARY | 2025-03-22 11:26 | XMS_ITS | Clinical Summary ---
Author Organization [facility] ity Address [address] [place] [phone] Care Team Providers Care Shift Foreman Name Role Phone Unavailable Primary Care Provider [...] PM EDT Office Visit Orthopedic Surgery - [place] [address] [phone] Quang Shirley, DPM [address] [address] Health Maintenance Due Date Last Done Comments [...]
--- OUTSIDE RECORDS SUMMARY | 2025-03-22 11:26 | XMS_ITS | Encounter Summary ---
Author Organization [employer] Address [address] [facility] 7t [place] [address] Care Team Providers Care Director Of Donor Relations Name Role Phone Unavailable Primary Care Provider Unavailabl e Reason for Visit * Reason Onset Date Comments New Patient 07/01/2023 Encounter Details Date Type Department Care Team (Late st Contact Info) Description 07/01/2023 Telephone [facility] MEDICINE 230 [place] [address] Matthew Lanza MD 230 [place] [address] New Patient Social History Tobacco Use Types Packs/Day Years Used Date Smoking Tobacco: Never Assessed Sex and Gender Information Value Date Recorded Sex Assigned at Male 09/08/2022 10:16 AM EDT Legal Sex Male 10:16 AM EDT Gender Identity Male 03/15/2024 10:15 AM EDT Sexual Orientation Straight 03/15/2024 10 :15 AM EDT documented as of this encounter Miscellaneous Notes * Telephone Encounter - hSaq Salazar - 07/01/2023 1:08 PM EDT 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 EFFECTIVE SINCE 07/01/2023 documented in this encounter Plan of Treatment Not on file documented as of this encounter Visit Diagnoses Not on filedocumented in this encounter
--- OUTSIDE RECORDS SUMMARY | 2025-03-22 11:26 | XMS_ITS | Clinical Summary ---
Author Organization [email or web address] [facility] Address [address] [place] [address] [address]t [place] [address] Care Team Providers Care Operations Supervisor 2Nd Shift Name Role Phone Unavailable Primary Care Provider [...] Most Recently Relevant to Health Maintenance [facility] STAND ADULT
== END 2025-03-22 11:41 | disposition home or self-care (01) ==
LOC: HO.HGI 10:24
PROVIDERS: PCP Physician Assistant; Visit Provider Internal Medicine
DX: K59.00 Constipation, unspecified (principal); Z86.0100 Personal history of colon polyps, unspecified; M54.42 Lumbago with sciatica, left side
CPT/HCPCS: 99214

== ENCOUNTER 2025-04-26 13:11 | Outpatient (AMB) | payer MEDICARE, MEDICAID, SELFPAY ==
[2025-04-26 13:27] VITALS: BP 120/78; PULSE 80; TEMP 36.3; O2SAT 97; BMI 37.1
--- NOTE | 2025-04-26 13:27 | A.OFFVIS_ITS ---
Intake Vital Signs 04/26/25 13:27 04/26/25 13:32 Height 5 ft 10 in Weight 258 lb 8 oz BMI 37.1 37.1 BP 120/78 Blood Pressure Location Rt brachial Position Sitting Pulse 80 Pulse Source Pulse Oximeter Temp 97.3 F Temp Source Temporal Artery Scan Pulse Oximetry (%) 97 Oxygen Delivery Method Room Air Intake Visit Reasons: Annual Exam Intake Note: Patient is here for an Annual Wellness Visit. Diabetes Manager Required: No Accompanied by: Self / Same As Patient Allergies valium Allergy (Severe, Uncoded 04/26/25 13:36) Unconscious Medication List - Last Reconciled 04/26/25 by Paras Gutierrez PA-C atorvastatin 40 mg PO DAILY 90 days cyclobenzaprine 10 mg PO Q8H PRN 30 days ibuprofen 800 mg PO Q8H PRN 30 days levothyroxine 25 mcg PO DAILY 90 days levothyroxine 25 mcg PO DAILY 90 days polyethylene glycol 3350 (Miralax) 238 grams PO ONCE polyethylene glycol 3350 (Miralax) 17 grams PO DAILY PRN 90 days sennosides (senna) 17.2 mg (2 x 8.6 mg) PO DAILY PRN tramadol 50 mg PO TID PRN zolpidem 5 mg PO BEDTIME PRN 10 days HPI Annual Exam HPI Details Patient is a 59-year-old male here today for routine annual wellness Patient has a past medical history significant for hyperlipidemia, obesity, history of L1 compression fracture and chronic lower back pain. Today we discussed patient's end of life planning and [place] of care also patient's comprehensive care plan was scanned in patient's documents. --concern--> she does report having some you urinary stream particularly in the afternoons, PSA was normal. He is willing to try tamsulosin to help with urinary flow .. Lumbar disc disease:? Continues to have intermittent lumbar spine pain. Pain is better when in [place]. Of note does have a history of an L1 compression fracture. Recently had repeat x-ray that did show his L1 fracture. He has been placed on tramadol recently for his back pain Was advised on pain management though declines my offers as he does not want any injections. He has done physical therapy for his back in the past though felt his lower back pain worse PLAN: Due to patient's worsening lower back pain with radiculopathy down left lower extremity will try for MRI to evaluate for a disc herniation .. Hyperlipidemia:? Recent labs showing elevated total cholesterol and improved LDL.? He has been more consistent with his atorvastatin 40 mg as of late. Will recheck his lipid panel with more consistent use of his statin therapy . . Obese:? Patient does understand his BMI is over 30 and will work on being more physically active in adapting to better eating habits to reduce his weight. .. Elevated TSH: Most recent TSH stabilize. Will continue levothyroxine 25 mcg Colonoscopy: need Up to date Colonoscopy.. Vaccines: Up-to-date with COVID vaccine, needs Tdap, considering shingles vaccine HPI Comments History of Present Illness Details reviewed past medical history- yes reviewed surgical / hospitalization history- yes reviewed current medications- yes reviewed family history- yes home safety throw rugs? grab bars? raised toilet seat? working smoke detectors? activities of daily living difficulty bathing or showering? difficulty dressing? difficulty using the toilet? difficulty getting in and out of bed? difficulty walking? receives help from other person's with any of the above tasks? instrumental activities of daily living uses telephone - gets to place out of walking distance- go shopping for groceries- repairs own meals- does own minor home maintenance- does own laundry- does own housework- manages own money- currently takes medication- end of life planning discussed advanced directives- yes advanced directives on file? discussed wishes expressed in advanced directives. fall risk have you had any falls with injuries in the past year? have you had 2 or more falls in the past year? fall risk assessment: [facility] Medical History HTN (hypertension) Disc degeneration, lumbar Surgical History Hx of colonoscopy No pertinent past surgical history Family History Father No problems noted. Mother Diabetes Hyperlipidemia Hypertension Alzheimer disease Maternal Grandfather Cancer Social History Housing: House Alcohol intake: current Alcohol intake frequency: holidays/special occasions only Patient Tobacco Use Status: Never used Tobacco Tobacco use type: Cigarette e-Cigarette/Vaping Use: Never Used Second Hand Smoke Exposure: No service: No Current occupational status: disabled Cognitive needs: No Hearing needs: No Vision needs: Yes Questionnaire Medicare Wellness Checkup What [age]?: 65-69 What gender do you identify with?: male During the past 4 weeks, how much have you been bothered by emotional problems such as feeling anxious, depressed, irritable, sad or downhearted, and blue?: not at all During the past 4 weeks, has your physical & emotional health limited your social activities with family, friends, neighbors, or groups?: not at all During the past 4 weeks, how much bodily pain have you generally had?: moderate pain During the past 4 weeks, was someone available to help you if you needed & wanted help?: yes, as much as I wanted During the past 4 weeks, what was the hardest physical activity you could do for at least 2 minutes?: very light Can you get to places out of walking distance without help? (For eg., can you travel alone on buses, taxis or drive your car?): Yes Can you go shopping for groceries or clothes without someone's help?: Yes Can you prepare your own meals?: Yes (Sometimes) Can you do your housework without help?: No Because of any health problems, do you need the help of another person with your personal care needs such as eating, bathing, dressing or getting around the house?: No Can you handle your own money without help?: Yes During the past 4 weeks, how would you rate your health in general?: very good During the past 4 weeks how have things been going for you?: pretty well Are you having difficulties driving your car?: yes, often Do you always fasten your seat belt when you are in a car?: yes, usually During past 4 weeks, have you been bothered by the following: never: Falling or dizzy when standing up, Sexual problems?, Trouble eating well?, Teeth or denture problems?, Problems using the telephone? and Tiredness or fatigue? Have you fallen 2 or more times in the past year?: No Are you afraid of falling?: Yes Are you a smoker?: no During the past 4 weeks, how many drinks of wine, beer, or other alcoholic beverages did you have?: no alcohol at all Do you exercise for about 20 minutes 3 or more times a week?: no, I usually do not exercise this much Have you been given information to help with the following?: no: Hazards in your house that might hurt you? and no: Keeping track of your medications? How often do you have trouble taking medicines the way you have been told to take them?: I always take medicine as prescribed How confident are you that you can control & manage most of your health problems?: very confident What is your race?: or origin or descent Mini Mental State Exam (MMSE) Orientation What is the (year) (season) (date) (day) (month)?: year Where are we (state) (county) (town or city) (hospital) (floor)?: town or city Attention & Calculation (CHOOSE ONE) Spell WORLD backwards (DLROW): 4 letters Score Score: 6 Activity of Daily Living Bathing - sponge bath, tub bath or shower: receives no assistance (gets in/out by self, if usual bathing means Dressing - getting clothes from closets & drawers, including inner/outer garments & fasteners.: gets clothes & gets completely dressed without help Toileting - going to the 'toilet room' for urine/bowel elimination & cleaning self/arranging clothes: goes to toilet room, cleans self, arranges clothes without help Transfer: moves in & out of bed and chair without help (may use support object) Continence: controls urination/bowel movements completely by self Feeding: feeds self without help Total Score: 0 Information obtained from: patient Using telephone: independent Traveling: independent Shopping: independent Preparing meals: independent Housework: independent Taking medicine: independent Managing money: independent PHQ-9 Over the last 2 weeks, how often have you been bothered by any of the following problems? 1. Little interest or pleasure in doing things: not at all 2. Feeling down, depressed, or hopeless: not at all 3. Trouble falling or staying asleep, or sleeping too much: not at all 4. Feeling tired or having little energy: not at all 5. Poor appetite or overeating: not at all 6. Feeling bad about yourself - or that you are a failure or have let yourself or your family down: not at all 7. Trouble concentrating on things, such as reading the newspaper or watching television: not at all 8. Moving or speaking so slowly that other people could have noticed. Or the opposite - being so fidgety or restless that you have been moving around a lot more than usual: not at all 9. Thoughts that you would be better off or of hurting yourself in some way: not at all Total score: 0 Depression Screening Interpretation: Negative Depression Screening Done: Yes 67473 - PHQ-9 Billing: Yes Source: Developed by Drs. Richard Jaquez, Ivet Lee, Seymour Joyce and colleagues, with an educational mariam from [employer]. Physical Exam Vital Signs: Last Vital Signs Temp 97.3 F 04/26/25 13:27 Pulse 80 04/26/25 13:27 BP 120/78 04/26/25 13:27 Pulse Ox 97 04/26/25 13:27 Oxygen Delivery Method Room Air 04/26/25 13:27 BMI result Body Mass Index 37.1 HEENT Other: hearing screening whisper test- passed Eyes Other: vision screening- 20 20 OS OD OU Other: urinary incontinence? no Neuro Other: balance Romberg- normal tandem walk test- able walk-in turned test- able rise from sit to stand- within 2 seconds Immunizations Boostrix Tdap 2.5 Lf unit-8 mcg-5 Lf/0.5 mL intramuscular syringe Performing Provider: Paras Gutierrez PA-C [facility] Administered by: MIC Thompson on 04/26/25 14:02 Dose Route Admin Location Dispensed Lot Number Expiration Date [facility] Ignition Expert 0.5 mL IM Right Deltoid 0.5 mL [id number] 07/07/27 [id number] [employer] Total Dispensed Waste 0.5 mL 0 % VIS Given Date VIS Provided VIS Publication Date 04/26/25 Single Vaccine 24 Eligibility Eligibility Date Funding Source Not [facility] Eligible 04/26/25 Private Assessment & Plan Assessment & Plan (1) Medicare annual wellness visit, initial: Code(s): Z00.00 - Encounter for general adult medical examination without abnormal findings Plan: As per HPI (2) Lumbar radiculopathy, acute: Code(s): M54.16 - Radiculopathy, lumbar region Plan: The patient reports persistent back pain, exacerbated by movement, with previous physical therapy providing no relief. An MRI is planned to assess for potential disc issues in the lumbar spine, and pain management options were discussed. (3) Weak urine stream: Code(s): R39.12 - Poor urinary stream Plan: The patient experiences urinary symptoms suggestive of prostate enlargement, including difficulty with urine flow. Flomax (tamsulosin) was recommended to improve urinary flow. Orders: Orders MR lumbar spine wo con 04/26/25 M54.16 - Radiculopathy, lumbar region TDaP Immunization 04/26/25 Z23 - Encounter for immunization Comprehensive [place]. Panel Fast 04/26/25 I10 - Essential (primary) hypertension Complete Blood Count no Diff 04/26/25 I10 - Essential (primary) hypertension Lipid Panel 04/26/25 E78.2 - Mixed hyperlipidemia Medications: New tamsulosin 0.4 mg PO BEDTIME 90 caps 1RF 90 days R39.12 - Poor urinary stream Refilled levothyroxine 25 mcg PO DAILY 90 tabs 1RF 90 days E03.9 - Hypothyroidism, u nspecified zolpidem 5 mg PO BEDTIME PRN 10 tabs 0RF sleep 10 days G47.00 - Insomnia, unspecified Discontinued tramadol Discontinued Reason: Doctor's Order 50 mg PO TID PRN 30 tabs 0RF pain Quality Reporting (2019) Depression/Bipolar (159/160/161/177) PHQ-9: Total score: 0 Coding Level of Care Code Medicare First (G0438) Est Pt Level 4 (84944) Diagnoses Medicare annual wellness visit, initial Z00.00 Lumbar radiculopathy, acute M54.16 Weak urine stream R39.12 CPT Codes Advance Care Planning - Time spent: 1-15 minutes, on File ([id number]) Additional Codes PHQ-9 - 46357 - PHQ-9 Billing: Yes ([id number]) Advance Care Planning Advance Care Planning discussion: Completed/Scanned Date of discussion: 04/26/25 Forms completed: MOLST Time spent: 1-15 minutes, on File Actual minutes spent: 5
[2025-04-26 13:32] VITALS: BMI 37.1
--- OUTSIDE RECORDS SUMMARY | 2025-04-26 15:04 | XMS_ITS | Clinical Summary ---
Author Organization [facility] it[facility] Address [id number] [place] [id number] Care Team Providers Care Dynamo Repairer Name Role Phone Unavailable Primary Care [...] PM EDT Office Visit [facility] [place] [address] [phone] Quang Shirley, DPM [address] [address] Health Maintenance Due Date Last Done Comments [...]
== END 2025-04-26 14:12 | disposition home or self-care (01) ==
LOC: HO.HMCH 13:12
PROVIDERS: PCP Physician Assistant; Visit Provider Physician Assistant
DX: Z23 Encounter for immunization (principal)

== ENCOUNTER → 2025-04-26 13:11 | Outpatient (BNVA) | payer MEDICARE, MEDICAID, SELFPAY | PROVIDERS: PCP Physician Assistant; Visit Provider Physician Assistant | DX: Z00.01 Encounter for general adult medical examination with abnormal findings (principal); Z23 Encounter for immunization; M54.16 Radiculopathy, lumbar region; R39.12 Poor urinary stream; G47.00 Insomnia, unspecified; E03.9 Hypothyroidism, unspecified; I10 Essential (primary) hypertension; E78.2 Mixed hyperlipidemia | CPT/HCPCS: 90471; 90715; 96127; 99212 ==

== ENCOUNTER → 2025-05-11 19:37 | Outpatient (BNV) | payer MEDICARE, MEDICAID, SELFPAY | PROVIDERS: PCP Physician Assistant; Visit Provider Radiology Diagnostic Radiology | DX: M54.16 Radiculopathy, lumbar region (principal); M51.369 Other intervertebral disc degeneration, lumbar region without mention of lumbar back pain or lower extremity pain | CPT/HCPCS: 72148 ==

== ENCOUNTER 2025-05-11 19:38 | Outpatient (REF) | payer MEDICARE, MEDICAID, SELFPAY ==
--- NOTE | ~2025-05-11 | MR_ITS ---
CLINICAL HISTORY: M54.16 - Radiculopathy, lumbar region --- Additional Notes or Special Instructions: Patient having increased back pain with radiculopathy into left lower extremity, having weak urinary stream. MRI to evaluate for disc herniation in MR of the lumbar spine without contrast Comparison: CR - XR LUMBAR SPINE 2-3V - 03/15/25 16:03 EDT Findings: Trace dextrocurvature with the apex at L2. 3 mm retrolisthesis of L1 on L2, 4 mm retrolisthesis of L2 on L3 and 3 mm retrolisthesis of L4 on L5, degenerative. 2 mm anterolisthesis of L5 on S1, degenerative. Modic type 1 change at L3/L4 at the posterior aspect with a Schmorl's node within L3 and at L5/S1, greatest on the right. There is also Modic type 2 change at L5/S1. Mild height loss L1 without a fracture line or edema, chronic. No cord expansion or abnormal signal intensity. The conus medullaris terminates at T12/L1, which is normal. The cauda equina is unremarkable. Bilateral renal cysts. There is edema in the subcutaneous fat. T12/L1: 3 mm broad-based disc bulge. No facet joint or ligamentum flavum hypertrophy. Mild central canal stenosis. No lateral recess stenosis. No foraminal stenosis L1/L2: 7 mm broad-based disc bulge. Mild facet joint and ligamentum flavum hypertrophy. Mild central canal stenosis. Mild bilateral lateral recess stenosis. Mild bilateral foraminal stenosis, greater on the right. L2/L3: 6 mm broad-based disc bulge. Moderate facet joint and ligamentum flavum hypertrophy. Mild central canal stenosis. Severe bilateral lateral recess stenosis. Mild bilateral foraminal stenosis, greater on the right. L3/L4: 5 mm broad-based disc bulge. Mild facet joint and ligamentum flavum hypertrophy. Mild central canal stenosis. Severe bilateral lateral recess stenosis. [id number] right and mild left foraminal stenosis. L4/L5: 5 mm broad-based disc bulge. Moderate facet joint and ligamentum flavum hypertrophy. Mild central canal stenosis. Severe right and moderate to severe left foraminal stenosis. Mild bilateral foraminal stenosis, greater on the right. L5/S1: Uncovering of the disc with a 4 mm disc bulge. [id number] facet joint and ligamentum flavum hypertrophy. No central canal stenosis. Moderate to severe bilateral lateral recess stenosis. Mild bilateral foraminal stenosis, greater on the right. Impression: Multilevel degenerative change, detailed above. This document has been electronically signed by: Astrid Roldan MD on 05/15/2025 17:03:30
--- OUTSIDE RECORDS SUMMARY | 2025-05-11 19:41 | XMS_ITS | Encounter Summary ---
Author Organization [employer] [facility] Address [address] [place] [address] [address] [place] [address] Care Team Providers Care Air Force Pilot Name Role Phone Unavailable Primary Care Provider [...]
== END 2025-05-11 19:39 | disposition home or self-care (01) ==
LOC: HO.MRI 19:38
PROVIDERS: PCP Physician Assistant; Visit Provider Physician Assistant
DX: M54.16 Radiculopathy, lumbar region (principal)
CPT/HCPCS: 72148

== ENCOUNTER 2025-06-02 08:43 | Outpatient (AMB) | payer MEDICARE, MEDICAID, SELFPAY ==
--- OUTSIDE RECORDS SUMMARY | 2025-06-02 08:53 | XMS_ITS | Clinical Summary ---
Author Organization [address] [facility] Address [address] [place] [address] Phone Care Team Providers Care Lockstitch Machine Operator Name Role Phone Paras Gutierrez Primary Care Provider [phone] Allergies No known active allergies Medications terbinafine (LamISIL) 250 mg tablet Take 1 tablet (250 mg total) by mouth 1 (one) time each day. 30 tablet 2 06/01/2025 Active Encounters Date Type Department Care Team Description 06/01/2025 2:45 PM EDT Office Visit Orthopedic [place] [address] [phone] Quang Shirley DPM Dermatophytosis of nail (Primary Dx); Peripheral venous insufficiency from Last 3 Months Social History Tobacco Use Types Packs/Day Years Used Date Smoking Tobacco: Never Assessed Sex and Gender Information Value Date Recorded Sex Assigned at Not on file Legal Sex Male 8:29 AM EST Gender Identity Not on file Sexual Orientation Not on file Plan of Treatment Upcoming Encounters Date Type Department Care Team (Late st Contact Info) Description 07/18/2025 1:45 PM EDT Office Visit [facility] [address] [phone] Quang Shirley DPM [address] [address] Health Maintenance Due Date Last Done Comments Hepatitis B Vaccines (1 of 3 - 19+ 3-dose series) 1984 Pneumococcal Vaccine: 50+ Years (1 of 1 - PCV) 2015 Zoster Vaccines (1 of 2) 2015 COVID-19 Vaccine ( - 2023-2 5 season) 2024 06/23/2021, 06/02/2021 Depression Screening 11/09/2024 Cholesterol Screening (Lipid Panel) 03/13/2025 Colorectal Cancer Screening: Colonoscopy 03/13/2025 HIV Screening 03/13/2025 Hepatitis C Screening 03/13/2025 Medicare Annual Wellness Visit 03/13/2025 Social Influencers of Health Screening 03/13/2025 Influenza Vaccine (#1) 2025 , 09/23/2023 DTaP,Tdap,and Td Vaccines (3 - Td or Tdap) 04/26/2035 04/26/2025, 12/11/2014 RSV Immunization Adult Patients (1 - 1-dose 75+ series) 2040 HIB [...] to complete this topic RSV Immunization Patients Under 20 months Aged Out No longer eligible b ased on patient's age to complete this topic Varicella Vaccines Aged Out No longer eligible based on patient's age to complete this topic Procedures Procedure Name Priority Date/Time Associated Diagnosis Comments HEPATIC FUNCTION PANEL Routine 06/01/2025 3:19 PM EDT Dermatophytosis of nail from Last 3 Months Results * Hepatic function panel (06/01/2025 3:19 PM EDT) Total Protein 6.8 6.0 - 8.0 g/dL LAB CHEMISTRY METHOD 06/01/2025 7:38 PM EDT [facility] Albumin 3.8 3.2 - 5.0 g/dL LAB CHEMISTRY METHOD 06/01/2025 7:38 PM EDT [facility] Total Bilirubin 0.4 0.0 - 1.4 mg/dL LAB CHEMISTRY METHOD 06/01/2025 7:38 PM EDT [facility] Bilirubin, Direct 0.1 0.0 - 0.3 mg/dL LAB CHEMISTRY METHOD 06/01/2025 7:38 PM EDT [facility] Bilirubin, Indirect 0.3 0.0 - 1.1 mg/dL LAB CHEMISTRY METHOD 06/01/2025 7:38 PM EDT [facility] ALT (SGPT) 52 10 - 60 unit/L LAB CHEMISTRY METHOD 06/01/2025 7:38 PM EDT [facility] AST (SGOT) 24 10 - 42 unit/L LAB CHEMISTRY METHOD 06/01/2025 7:38 PM EDT [facility] Alkaline Phosphatase 88 42 - 121 unit/L LAB CHEMISTRY METHOD 06/01/2025 7:38 PM EDT [facility] Blood Venous blood specimen / Unknown Venipuncture / Unknown 06/01/2025 3:19 PM EDT 06/01/2025 3:19 PM EDT Quang Shirley DPM LAB BLOOD ORDERABLES Yue l Result [facility] [address] [place] [address], from Last 3 Months Insurance MEDICARE Care Teams Lockstitch Machine Operator Relationship Specialty Start Date End Date Paras Gutierrez PA [address] [place] [phone] PCP - General Physician Rotary Driller Prospecting 06/01/25
--- OUTSIDE RECORDS SUMMARY | 2025-06-02 08:53 | XMS_ITS | Encounter Summary ---
Author Organization [employer] [facility] Address [address] [place] [address] [address] [place] [address] Care Team Providers Care Exercise Scientist Name Role Phone Unavailable Primary Care Provider [...]
--- NOTE | 2025-06-02 08:55 | MHC.OFFVIS ---
Vital Signs 06/02/25 08:56 Height 5 ft 10 in Weight 255 lb BMI 36.6 BP 148/88 H Blood Pressure Location Lt brachial Position Sitting Respiration 18 Pulse 98 Pulse Source Pulse Oximeter Pulse Oximetry (%) 98 Oxygen Delivery Method Room Air Intake Visit Reasons: Radiculopathy, lumbar region Crime Prevention Worker Required: No Allergies valium Allergy (Severe, Uncoded 04/26/25 13:36) Unconscious HPI Comments Details: The patient is a 59-year-old male presenting with back pain radiating to the left leg. The pain began on February 16 following a twisting and lifting incident, initially felt the day after the incident. The pain radiates from the back down the left leg, described as an electrical/heat sensation with tingling, reaching the knee and foot. Endorses pain that radiates around to the groin down the inside of the left thigh down the jeffrey stopping just below the left medial ankle The patient has a history of lumbar disc bulges and osteoarthritis, with MRI findings indicating multiple disc bulges not impinging on nerves and significant arthritis. The MRI also shows lumbar spinal stenosis due to arthritis, causing neural foraminal stenosis. The patient reports difficulty with physical activities such as lifting the leg, standing for prolonged periods, and getting into a high truck due to pain. He has been using ibuprofen, cyclobenzaprine, and tramadol for pain management. Patient has not attempted physical therapy recently, last time was a couple years ago. When he did try they had to stop because it worsened his pain. - Onset: February 16, following a twisting and lifting incident - Quality: Electrical sensation with tingling - Location: Radiates from the back down the left leg to the knee and foot - Exacerbating factors: Lifting leg, standing for prolonged periods, getting into a high truck - Relieving factors: None explicitly mentioned - Affect: Pain impacts ability to perform physical activities such as standing and lifting - Analgesia: Using ibuprofen, cyclobenzaprine, and tramadol - Adverse Effects: Increased pain with physical therapy - Activities of Daily Living: Difficulty with standing for long periods and getting into a high truck - Aberrant Drug Related Behaviors: None reported [facility] Medical History (Updated 06/02/25 @ 10:33 by Pearl Boyer, VP MEDICAL, DRILLER OPERATOR) Lumbar radiculopathy, acute HTN (hypertension) Disc degeneration, lumbar Surgical History Hx of colonoscopy No pertinent past surgical history Family History Father No problems noted. Mother Diabetes Hyperlipidemia Hypertension Alzheimer disease Maternal Grandfather Cancer Social History Housing: House Alcohol intake: current Alcohol intake frequency: holidays/special occasions only Patient Tobacco Use Status: Never used Tobacco Tobacco use type: Cigarette e-Cigarette/Vaping Use: Never Used Second Hand Smoke Exposure: No service: No Current occupational status: disabled Cognitive needs: No Hearing needs: No Vision needs: Yes Review of Systems Const Details: - Musculoskeletal: Reports pain radiating from back to left leg, difficulty lifting leg, and standing for prolonged periods - Neurological: Reports electrical sensation in leg, denies tingling Physical Exam Exam Exam: General: awake, alert, oriented. Answers questions appropriately. Fully engaged in examination. Skin: warm, dry, intact HEENT: Normocephalic. Hearing intact. Cardiac: External chest normal in appearance. Respiratory: No cough, audible wheezing or stridor. Abdomen: without gross distension. MS: No obvious swelling or deformities. Able to stand on bilateral tiptoes and bilateral heels.? Able to transition from sit to stand unassisted. Ambulates with bilaterally normal heel strike and toe off Nontender over midline lumbar vertebrae and lumbar paraspinal muscles Nontender over bilateral PSIS Unable to perform RACQUEL on the left SLR positive on the left Decreased lumbar range of motion secondary to pain Neurological: Oriented to person, place, time and situation. Thought process intact. No gait abnormalities appreciated. Psychiatric: Appropriate mood and affect. Good judgment and insight. Vital Signs: Last Vital Signs Pulse 98 06/02/25 08:56 Resp 18 06/02/25 08:56 BP 148/88 H 06/02/25 08:56 Pulse Ox 98 06/02/25 08:56 Oxygen Delivery Method Room Air 06/02/25 08:56 BMI result Body Mass Index 36.6 Results Reviewed Results Reviewed: 05/15/25 MRI lumbar spine Findings: Trace dextrocurvature with the apex at L2. 3 mm retrolisthesis of L1 on L2, 4 mm retrolisthesis of L2 on L3 and 3 mm retrolisthesis of L4 on L5, degenerative. 2 mm anterolisthesis of L5 on S1, degenerative. Modic type 1 change at L3/L4 at the posterior aspect with a Schmorl's node within L3 and at L5/S1, greatest on the right. There is also Modic type 2 change at L5/S1. Mild height loss L1 without a fracture line or edema, chronic. No cord expansion or abnormal signal intensity. The conus medullaris terminates at T12/L1, which is normal. The cauda equina is unremarkable. Bilateral renal cysts. There is edema in the subcutaneous fat. T12/L1: 3 mm broad-based disc bulge. No facet joint or ligamentum flavum hypertrophy. Mild central canal stenosis. No lateral recess stenosis. No foraminal stenosis L1/L2: 7 mm broad-based disc bulge. Mild facet joint and ligamentum flavum hypertrophy. Mild central canal stenosis. Mild bilateral lateral recess stenosis. Mild bilateral foraminal stenosis, greater on the right. L2/L3: 6 mm broad-based disc bulge. Moderate facet joint and ligamentum flavum hypertrophy. Mild central canal stenosis. Severe bilateral lateral recess stenosis. Mild bilateral foraminal stenosis, greater on the right. L3/L4: 5 mm broad-based disc bulge. Mild facet joint and ligamentum flavum hypertrophy. Mild central canal stenosis. Severe bilateral lateral recess stenosis. Lexc-pt-gaqmtnhb right and mild left foraminal stenosis. L4/L5: 5 mm broad-based disc bulge. Moderate facet joint and ligamentum flavum hypertrophy. Mild central canal stenosis. Severe right and moderate to severe left foraminal stenosis. Mild bilateral foraminal stenosis, greater on the right. L5/S1: Uncovering of the disc with a 4 mm disc bulge. Fpiu-gu-gjryltuv facet joint and ligamentum flavum hypertrophy. No central canal stenosis. Moderate to severe bilateral lateral recess stenosis. Mild bilateral foraminal stenosis, greater on the right. Impression: Multilevel degenerative change, detailed above. 03/15/25 x-ray lumbar spine FINDINGS: Endplate sclerosis marginal osteophyte formation and decreased intervertebral disc at multiple levels more pronounced at L5-S1. Superior endplate compression deformity representing 30% volume loss at L1. Superior endplate compression deformity representing 20% volume loss at T12. S-shaped curvature. No acute cortical disruption. Grade 1 retrolisthesis L2-3. Facet joint hypertrophy L5-S1. IMPRESSION: Multilevel thoracolumbar spondylosis without acute fracture. Grade 1 retrolisthesis L2-3 likely degenerative. Old superior endplate compression deformities, T12-L1. Assessment & Plan Assessment & Plan (1) Disc degeneration, lumbar: Code(s): M51.36 - Other intervertebral disc degeneration, lumbar region Category: Medical (2) Lumbar radiculopathy: Code(s): M54.16 - Radiculopathy, lumbar region Category: Medical (3) Lumbar spondylosis: Code(s): M47.816 - Spondylosis without myelopathy or radiculopathy, lumbar region Category: Medical (4) Lumbar radiculopathy, acute: Code(s): M54.16 - Radiculopathy, lumbar region Category: Medical (5) Left leg paresthesias: Code(s): R20.2 - Paresthesia of skin Category: Medical Plan I discussed with the patient the likely diagnosis of lumbar radiculopathy and the associated findings of lumbar disc bulges and spinal stenosis. The plan includes initiating physical therapy to address the lumbar radiculopathy and associated symptoms, with the aim of alleviating pain and improving function. A nerve conduction study is ordered which will guide further management decisions. If physical therapy is not tolerated or ineffective, a steroid injection may be considered as the next step in management. The patient is advised to continue current medications, including ibuprofen, cyclobenzaprine, and tramadol, for pain management. The patient was informed about the continuation of current medications and advised to follow up after physical therapy to assess progress and discuss further steps. Patient was informed and verbally consented to the use of an ambient scribe for clinic note documentation during this visit. Orders: Orders PT Evaluation and Treatment Today M47.816 - Spondylosis without myelopathy or radiculopathy, lumbar region, M51.36 - Other intervertebral disc degeneration, lumbar region, M54.16 - Radiculopathy, lumbar region NE electromyogram (EMG) Today R20.2 - Paresthesia of skin NE nerve conduction velocity Today R20.2 - Paresthesia of skin Patient Instructions: - Start physical therapy as ordered. - Continue taking ibuprofen, cyclobenzaprine, and tramadol as prescribed. - Attend the scheduled nerve conduction study. - Follow up after physical therapy to evaluate progress. - Report any worsening of symptoms or inability to tolerate physical therapy. Coding Level of Care Code New Pt Level 4 (31976) Complex EM visit Add On G2211 Diagnoses Disc degeneration, lumbar M51.36 Lumbar radiculopathy M54.16 Lumbar spondylosis M47.816 Lumbar radiculopathy, acute M54.16 Left leg paresthesias R20.2
[2025-06-02 08:56] VITALS: BP 148/88; PULSE 98; RESP 18; O2SAT 98; BMI 36.6
== END 2025-06-02 09:22 | disposition home or self-care (01) ==
LOC: HO.PMC 08:43
PROVIDERS: PCP Physician Assistant; Referring Provider Physician Assistant; Visit Provider Registered Nurse Emergency
DX: M51.369 Other intervertebral disc degeneration, lumbar region without mention of lumbar back pain or lower extremity pain (principal); M54.16 Radiculopathy, lumbar region; M47.816 Spondylosis without myelopathy or radiculopathy, lumbar region; R20.2 Paresthesia of skin
CPT/HCPCS: 99204; G2211

== ENCOUNTER → 2025-06-02 08:43 | Outpatient (BNVA) | payer MEDICARE, MEDICAID, SELFPAY | PROVIDERS: PCP Physician Assistant; Referring Provider Physician Assistant; Visit Provider Registered Nurse Emergency | DX: M47.26 Other spondylosis with radiculopathy, lumbar region (principal); M51.362 Other intervertebral disc degeneration, lumbar region with discogenic back pain and lower extremity pain; R20.2 Paresthesia of skin | CPT/HCPCS: 99202 ==

== ENCOUNTER 2025-08-04 15:18 | Outpatient (REF) | payer MEDICARE, MEDICAID, SELFPAY ==
--- NOTE | 2025-08-04 15:20 | EMG_ITS ---
Chief complaint: Chronic back pain, leg numbness and pain, at some point left side was worse than right Reason for referral: Evaluate for radiculopathy Referred by: Pearl Boyer NP Procedure done: Left lower extremity NCS/EMG Precautions and/or limitations: None The limb temperature was monitored continuously and remained between 32-36 degrees C during the performance of the NCS. Nerve Conduction Studies Anti Sensory Summary Table ?Stim Site NR Onset (ms) Norm Onset (ms) Peak (ms) Norm Peak (ms) O-P Amp (?V) Norm O-P Amp Site1 Site2 Delta-0 (ms) Dist (cm) Blake (m/s) Norm Blake (m/s) Left Sural Anti Sensory (Lat Mall) Calf ? 3.0 3.8 <4.0 4.5 >5.0 Calf Lat Mall 3.0 14.0 47 Site 2 ? 2.6 3.6 5.5 Motor Summary Table ?Stim Site NR Onset (ms) Norm Onset (ms) O-P Amp (mV) Norm O-P Amp iAmp (mV) Amp (1st) (%) Site1 Site2 Delta-0 (ms) Dist (cm) Blake (m/s) Norm Blake (m/s) Left Peroneal Motor Run #2 (Ext Dig Brev) Ankle ? 4.0 <4.0 4.5 >2.5 5.5 100.0 Ankle Ext Dig Brev 4.0 0.0 B Fib ? 12.2 5.0 5.7 111.1 B Fib Ankle 8.2 34.0 41 >40 Poplt ? 13.2 4.9 5.7 108.9 Poplt B Fib 1.0 5.0 50 >40 Left Tibial Motor (Abd Smallwood Brev) Ankle ? 3.4 <5 9.8 >2.5 13.2 100.0 Ankle Abd Smallwood Brev 3.4 0.0 Knee ? 12.9 4.4 6.2 44.9 Knee Ankle 9.5 44.0 46 >40 EMG ?Side Muscle Nerve Root Ins Act Fibs Psw Amp Dur Poly Recrt Int Pat Comment Left AbdHallucis MedPlantar S1-2 Incr 1+ 1+ Nml Nml 0 Nml Complete Left AntTibialis Dp Br Peron L4-5 Nml Nml Nml Nml Nml 0 Nml Complete Left PostTibialis Tibial L5, S1 Nml Nml Nml Nml Nml 0 Nml Complete Left MedGastroc Tibial S1-2 Incr 1+ 1+ Nml Nml 0 Nml Complete Left VastusMed Femoral L2-4 Nml Nml Nml Nml Nml 0 Nml Complete Paraspinal EMG ?Side Muscle Nerve Root Ins Act Fibs Psw Comment Left Lumbar Upper Rami Nml Nml Nml Left Lumbar Mid Rami Nml Nml Nml Left Lumbar Lower Rami Incr 1+ 1+ FINDINGS: All motor and sensory nerves tested showed normal latencies, amplitudes and conduction velocities. Concentric needle EMG was performed in selected muscles of the left lower extremity and lumbar paraspinals. Study revealed signs of electric abnormalities as shown in the table above. Left AH and medial gastrocnemius showed increased insertional activity, PSWs and fibrillations. Left lower lumbar paraspinals showed increased insertional activity, PSWs and fibrillations. IMPRESSION: 1. This is an abnormal study. 2. There is electrodiagnostic evidence for left L5/S1 lumbar radiculopathy. 3. There is no electrodiagnostic evidence for peroneal neuropathy, tibial neuropathy, lumbosacral plexopathy, or peripheral neuropathy. Thank you for your kind referral. María Camejo MD, EDEN Board Certified, [place] Board of Physical Medicine and Rehabilitation (ABPMR) Board Certified, [place] Board of Electrodiagnostic Medicine (ABEM) [place] [id number] [facility]
--- OUTSIDE RECORDS SUMMARY | 2025-08-04 15:46 | XMS_ITS | Clinical Summary ---
Author Organization [employer] Address [address] [place] [address] [address] [place] [address] Care Team Providers Care Marketing Researcher Name Role Phone Unavailable Primary Care Provider [...] Panel 1965 SDOH Screening 1965 Sigmoidoscopy 1965 Disability Screening 1965 Alcohol/Substance Use Screening 1977 Hepatitis C Screening 1983 Pneumococcal Vaccine: 50+ Years (1 of 1 - PCV) 2015 Zoster Vaccines (1 of 2) 2015 Dental Oral Exam 10/09/2024 04/07/2024, , 10/12/2017 Dental Prophylaxis 10/27/2024 04/26/2024, 0 07/22/2019, 01/19/2019, Additional history exists DTaP/Tdap/Td Vaccines (2 - Td or Tdap) 12/11/2024 12/11/2014 COVID-19 Vaccine (3 - season) 2025 06/23/2021, 06/02/2021 Influenza Vaccine (#1) 2025 09/27/2024, 2022 Tobacco Screening 10/03/2025 10/03/2024 Dental X-Ray: Bitewings 10/04/2025 10/03/20 24, 04/07/2024, 01/19/2019, Additional history exists Dental X-Ray: Full Mouth 04/08/2027 04/07/2024, 12/02/2017 RSV Patients and Patients Aged 60 years or older (1 - 1-dose 75+ series) 2040 HIB Vaccines Aged Out No longer eligi ble based on patient's age to complete this topic HPV Vaccines Aged Out No longer eligi ble based on patient's age to complete this topic Hepatitis A Vaccines Aged Out No long er eligible based on patient's age to complete this topic Hepatitis B Vaccines Aged Out No long er eligible [...] Most Recently Relevant to Health Maintenance [facility] [place] ST[place] ADULT
--- OUTSIDE RECORDS SUMMARY | 2025-08-04 15:46 | XMS_ITS | Encounter Summary ---
Author Organization [employer] [facility] Address [address] [place] [address] [address] [place] [address] Care Team Providers Care Rn Physician Office Name Role Phone Unavailable Primary Care Provider [...]
--- OUTSIDE RECORDS SUMMARY | 2025-08-04 15:46 | XMS_ITS | Encounter Summary ---
Author Organization [employer] Address [address] [facility] [address]t [place] [address] Care Team Providers Care Roastmaster Name Role Phone Unavailable Primary Care Provider Unavailabl e Reason for Visit * Reason Onset Date Comments New Patient 07/01/2023 Encounter Details Date Type Department Care Team (Late st Contact Info) Description 07/01/2023 Telephone [facility] MEDICINE [address] [place] [address] Matthew Lanza MD [address] [place] [address] New Patient Social History Tobacco Use Types [...] been transfer over to wait list for CLEAN UP HELPER BANQUET. EFFECTIVE SINCE 07/01/2023 documented in this encounter Plan of Treatment Not on file documented as of this encounter Visit Diagnoses Not on filedocumented in this encounter
--- OUTSIDE RECORDS SUMMARY | 2025-08-04 15:46 | XMS_ITS | Clinical Summary ---
Author Organization [address] [place] [address] Address [address] [place] [address] Phone Care Team Providers Care Soccer Referee Name Role Phone Paras Gutierrez Primary Care Provider Allergies No known active allergies Medications terbinafine (LamISIL) 250 mg tablet Take 1 tablet (250 mg total) by mouth 1 (one) time each day. 30 tablet 2 06/01/2025 5 Active Encounters Date Type Department Care Team Description 06/01/2025 2:45 PM EDT Office Visit Orthopedic Surgery [facility] [address] [phone] Quang Shirley, DPM Dermatophytosis of nail (Primary Dx); Peripheral venous insufficiency from Last 3 Months Social History Tobacco Use Types Packs/Day Years Used Date Smoking Tobacco: Never Assessed Sex and Gender Information Value Date Recorded Sex Assigned at Not on file Legal Sex Male 8:29 AM EST Gender Identity Not on file Sexual Orientation Not on file Plan of Treatment Health Maintenance Due Date Last Done Comments Pneumococcal Vaccine: 50+ Years (1 of 1 - PCV) 2015 Zoster Vaccines (1 of 2) 2015 Depression Screening 11/09/2024 Cholesterol Screening (Lipid Panel) 03/13/2025 Colorectal Cancer Screening: Colonoscopy 03/13/2025 HIV Screening 03/13/2025 Hepatitis C Screening 03/13/2025 Medicare Annual Wellness Visit 03/13/2025 Social Influencers of Health Screening 03/13/2025 COVID-19 Vaccine (3 - 2024-2 6 season) 2025 06/23/2021, 06/02/2021 Influenza Vaccine (#1) 2025 4, 09/23/2023 DTaP,Tdap,and Td Vaccines (3 - Td [...] LAB CHEMISTRY METHOD 06/01/2025 7:38 PM EDT [facility] Albumin 3.8 3.2 - 5.0 g/dL LAB CHEMISTRY METHOD 06/01/2025 7:38 PM EDT [facility] Total Bilirubin 0.4 0.0 - 1.4 mg/dL LAB CHEMISTRY METHOD 06/01/2025 7:38 PM EDT [facility] Bilirubin, Direct 0.1 0.0 - 0.3 mg/dL LAB CHEMISTRY METHOD 06/01/2025 7:38 PM EDT [facility] Bilirubin, Indirect 0.3 0.0 - 1.1 mg/dL LAB CHEMISTRY METHOD 06/01/2025 7:38 PM EDT [facility] ALT (SGPT) 52 10 - 60 unit/L LAB CHEMISTRY METHOD 06/01/2025 7:38 PM EDT [facility] AST (SGOT) 24 10 - 42 unit/L LAB CHEMISTRY METHOD 06/01/2025 7:38 PM EDT [facility] Alkaline Phosphatase 88 42 - 121 unit/L LAB CHEMISTRY METHOD 06/01/2025 7:38 PM EDT [facility] Blood Venous blood specimen / Unknown Venipuncture / Unknown 06/01/2025 3:19 PM EDT 06/01/2025 3:19 PM EDT us Quang Shirley DPM LAB BLOOD ORDERABLES Yue rogers Result [facility] [address] [place] [address], from Last 3 Months Insurance MEDICARE Care Teams Soccer Referee Relationship Specialty Start Date End Date Paras Gutierrez PA [address] [place] [phone] PCP - General Physician Landscape Maintenance Internship 06/01/25
== END 2025-08-04 15:19 | disposition home or self-care (01) ==
LOC: HO.NEURO 15:18
PROVIDERS: PCP Physician Assistant; Visit Provider Registered Nurse Emergency
DX: R20.2 Paresthesia of skin (principal); M54.50 Low back pain, unspecified; G89.29 Other chronic pain
CPT/HCPCS: 95886; 95908

== ENCOUNTER → 2025-08-04 15:20 | Outpatient (BNV) | payer MEDICARE, MEDICAID, SELFPAY | PROVIDERS: PCP Physician Assistant; Visit Provider Physical Medicine & Rehabilitation | DX: M54.16 Radiculopathy, lumbar region (principal) | CPT/HCPCS: 95886; 95908 ==

== ENCOUNTER 2025-10-02 10:27 | Outpatient (REF) | payer MEDICARE, MEDICAID, SELFPAY ==
[2025-10-02 10:57] LABS: Hematocrit 47.5 % (42.0-52.0); Hemoglobin 15.5 g/dl (14.0-18.0); Mean Corpuscular HGB Conc 32.6 g/dl (31.0-36.0); Mean Corpuscular Hemoglobin 27.9 pg (27.0-33.0); Mean Corpuscular Volume 85.4 fL (80.0-98.0); NRBC Abs Auto 0.000 X10*3/uL (0.0-0.012); NRBC Pct Auto 0.0 /100WBC (0.0-0.2); Platelet Count 249 X10*3/uL (160-400); Red Blood Count 5.56 X10*6/uL (4.60-5.80); White Blood Count 5.8 X10*3/uL (4.8-10.8)
--- OUTSIDE RECORDS SUMMARY | 2025-10-02 12:58 | XMS_ITS | Encounter Summary ---
Author Organization [facility] Address [address] [place] [address] [address] [address] Care Team Providers Care Quality Manager Name Role Phone Unavailable Primary Care Provider Unavailabl e Encounter Details Date Type Department Care Team (Latest Contact Info) Description 01/19/2019 Abstract [facility] CONVERSIONS Dental, Provider, DDS Social History [...] Description 10/12/2025 9:30 AM EST Office Visit [facility] ADULT DENTAL [address] [place] [address] Ollie Huffaris [address] [place] [address] documented as of this encounter Visit Diagnoses Not on filedocumented in this encounter
--- OUTSIDE RECORDS SUMMARY | 2025-10-02 12:58 | XMS_ITS | Clinical Summary ---
Author Organization [facility] Address [address] [place] [address] Phone Care Team Providers Care Relationship Executive Name Role Phone Paras Gutierrez Primary Care Provider Allergies No known active allergies Social History Tobacco Use Types Packs/Day Years [...] complete this topic Insurance MEDICARE Care Teams Relationship Executive Relationship Specialty Start Date End Date Paras Gutierrez PA [address] [place] [phone] PCP - General Physician Maternal Child Nurse 06/01/25
--- OUTSIDE RECORDS SUMMARY | 2025-10-02 12:58 | XMS_ITS | Encounter Summary ---
Author Organization 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 EFFECTIVE SINCE 07/01/2023 documented in this encounter Plan of Treatment Upcoming Encounters Date Type Department Care Team (Late st Contact Info) Description 10/12/2025 9:30 AM EST Office Visit [facility] ADULT DENTAL [address] [place] [address] Tiffanie Huff [address] [place] [address] documented as of this encounter Visit Diagnoses Not on filedocumented in this encounter
--- OUTSIDE RECORDS SUMMARY | 2025-10-02 12:59 | XMS_ITS | Clinical Summary ---
Author Organization [facility] Address [address] [place] [address] 7 [place] [address] Care Team Providers Care Electric Motor Winders Assembler Name Role Phone Unavailable Primary Care [...] Description 09/12/2025 9:00 AM EST Office Visit [facility] ADULT DENTAL [address] [place] [address] Sam Warren DDS Dental caries (Primary Dx) 09/11/2025 Travel 08/11/2025 9:30 AM EDT Office Visit [facility] ADULT DENTAL [address] [place] [address] Tiffanie Huff Periodontal disease (Primary Dx); Dental [...] Description 10/12/2025 9:30 AM EST Office Visit [facility] ADULT DENTAL [address] [place] [address] Tiffanie Huff [address] [place] [address] Health Maintenance Due Date Last Done Comments [...] Most Recently Relevant to Health Maintenance Insurance [facility] [place] [id number] [facility] ST[facility]ULT
[2025-10-02 15:18] LABS: Alanine Aminotransferase 48 U/L (0-40); Albumin Level 4.5 g/dL (3.5-5.0); Alkaline Phosphatase 83 U/L (39-117); Anion Gap 12 (12-20); Aspartate Amino Transferase 36 U/L (5-37); Blood Urea Nitrogen 16 mg/dL (9-16); Calcium 9.0 mg/dL (8.4-10.2); Carbon Dioxide 30 mmol/L (22-29); Chloride 102 mmol/L (96-108); Cholesterol 271 mg/dL (<200); Estimated Glomerular Filt Rate > 60; HDL Cholesterol 43 mg/dL (>40); Potassium 4.2 mmol/L (3.3-5.1); Sodium 140 mmol/L (135-145); Total Protein 7.0 g/dL (6.5-8.0); Triglycerides 373 mg/dL (<150)
== END 2025-10-02 10:28 | disposition home or self-care (01) ==
LOC: HO.LAB 10:27
PROVIDERS: PCP Physician Assistant; Visit Provider Physician Assistant
DX: E78.2 Mixed hyperlipidemia (principal); I10 Essential (primary) hypertension
CPT/HCPCS: 36415; 80053; 80061; 85027

== ENCOUNTER 2025-10-10 13:45 | Outpatient (AMB) | payer MEDICARE, MEDICAID, SELFPAY ==
--- NOTE | 2025-10-10 13:53 | MHC.PC.OV ---
Vital Signs 10/10/25 13:55 Height 5 ft 10 in Weight 258 lb BMI 37.0 BP 130/90 H Blood Pressure Location Lt brachial Position Sitting Pulse 93 Pulse Source Pulse Oximeter Temp 97.3 F Temp Source Temporal Artery Scan Pulse Oximetry (%) 98 Oxygen Delivery Method Room Air Intake Visit Reasons: f/u HLD Intake Note: Patient is here to follow up on HLD. Home Improvement Installer Required: No Oyster Bed Worker: Not Required per policy Accompanied by: Self / Same As Patient Allergies valium Allergy (Severe, Uncoded 10/10/25 14:05) Unconscious Medication List - Last Reconciled 10/10/25 by Paras Gutierrez PA-C atorvastatin 40 mg PO DAILY 90 days cyclobenzaprine 10 mg PO Q8H PRN 30 days ibuprofen 800 mg PO Q8H PRN 30 days levothyroxine 25 mcg PO DAILY 90 days oxycodone 5 mg PO BID PRN 3 days polyethylene glycol 3350 (Miralax) 238 grams PO ONCE polyethylene glycol 3350 (Miralax) 17 grams PO DAILY PRN 90 days sennosides (senna) 17.2 mg (2 x 8.6 mg) PO DAILY PRN tamsulosin 0.4 mg PO BEDTIME 90 days zolpidem 5 mg PO BEDTIME PRN 10 days Tobacco use date assessed: 10/10/25 Dental Screening Dental Screen Date: 03/15/25 HPI f/u HLD HPI Details Patient is a 60-year-old male here today for follow up visit Patient has a past medical history significant for hyperlipidemia, hypertension, obesity, history of L1 compression fracture and chronic lower back pain. .. Lumbar disc disease:? Continues to have intermittent lumbar spine pain. Pain is better when in [place]. Of note does have a history of an L1 compression fracture. Recently had repeat x-ray that did show his L1 fracture. He has been placed on tramadol recently for his back pain Was advised on pain management though declines my offers as he does not want any injections. He has done physical therapy for his back in the past though felt his lower back pain worse .. Hyperlipidemia:? The patient has a history of hyperlipidemia with a recent total cholesterol of 271. The LDL cholesterol improved to 154 from a previous value of 181. The patient reports having stopped taking atorvastatin for more than a month after hearing a news report about the medication. PLAN---> would transition him to a an alternative statin. .. BPH: Patient continues on tamsulosin for signs and symptoms of nocturia do diffuse BPH. Most recent PSA stable. .. Hypothyroidism: The patient has a history of hypothyroidism and has been intermittently non-adherent with the thyroid medication, often forgetting to take it. The prior TSH level was 4.3. . Class 2 Obese:? Patient does understand his BMI is over 30 and will work on being more physically active in adapting to better eating habits to reduce his weight. Of note thyroid has also been a problem and has not been consistent with the use of his levothyroxine. He promises now to be more consistent [facility] Medical History (Updated 06/02/25 @ 10:33 by Pearl Boyer APRN, MUSTANGER) Lumbar radiculopathy, acute HTN (hypertension) Disc degeneration, lumbar Surgical History (Updated 10/10/25 @ 14:00 by MERLY Romano) Hx of colonoscopy Family History Father No problems noted. Mother Diabetes Hyperlipidemia Hypertension Alzheimer disease Maternal Grandfather Cancer Social History Housing: House Alcohol intake: current Alcohol intake frequency: holidays/special occasions only Patient Tobacco Use Status: Never used Tobacco Tobacco use type: Cigarette e-Cigarette/Vaping Use: Never Used Second Hand Smoke Exposure: No service: No Current occupational status: disabled Cognitive needs: No Hearing needs: No Vision needs: Yes Questionnaire Thrive Questionnaire Date Thrive assessed: 03/15/25 I am a: Patient What is your living situation today?: I have a steady place to live Within the past 12 months, did the food you bought not last and you didn't have the money to get more?: Never true Within the past 12 months, did you worry whether your food would run out before you got money to buy more?: Never true Do you have trouble paying for medicines?: No Do you have trouble getting transportation to medical appointments?: No Do you have trouble paying your heating and electricity bill?: No Do you have trouble taking care of your child, family member or friend?: No Do you have trouble with day-to-day activities such as bathing, preparing meals, shopping, managing finances, etc.?: No Are you currently unemployed and looking for a job?: No Are you interested in more education?: No Please select the resources that you would like help with: None Currently or been in a relationship where the following occur: No concerns reported THRIVE Score: 0 JOHN-7 AMB Questionnaire JOHN-7 Date JOHN - 7 assessed: 03/15/25 Source: Developed by Drs. Richard Jaquez, Ivet Lee, Seymour Joyce and colleagues, with an educational mariam from [employer]. Review of Systems Const Denies headache(s) Eyes Denies loss of vision ENT Denies vertigo, Denies dizziness, Denies headache(s) and Denies sore throat Card Denies chest pain, Denies leg edema and Denies lightheadedness Resp Denies cough, Denies hemoptysis and Denies wheezing GI Denies abdominal pain, Denies melena, Denies constipation, Denies diarrhea and Denies vomiting Denies dysuria, Denies urinary frequency and Denies urinary urgency Musc Denies arthralgias, Denies joint swelling, Denies numbness and Denies tingling Neuro Denies Abnormal speech present, Denies behavioral changes, Denies vertigo, Denies dizziness, Denies headache(s), Denies loss of vision, Denies memory loss, Denies numbness and Denies tingling Psych Denies anxiety, Denies behavioral changes, Denies depression, Denies memory loss and Denies panic attacks Rell/Lymph Denies easy bleeding and Denies easy bruising Aller/Immun Denies wheezing Physical exam (Primary Care) Vital Signs: Last Vital Signs Temp 97.3 F 10/10/25 13:55 Pulse 93 10/10/25 13:55 BP 130/90 H 10/10/25 13:55 Pulse Ox 98 10/10/25 13:55 Oxygen Delivery Method Room Air 10/10/25 13:55 Care Plan Goal for BP management: Will continue working on lifestyle and dietary modifications-patient refuses to start blood pressure medication Next steps: At next visit if blood pressure remains elevated will consider low-dose lisinopril, goal blood pressure to be below 140/90 BMI result Body Mass Index 37.0 BMI Assessment/Plan discussion: High BMI High, discussed plan: lifestyle, weight reduction, dietary and physical activity Tobacco/Smoking Status: Tobacco use Status Tobacco use date assessed 10/10/25 10/10/25 14:01 Patient Tobacco Use Status Never used Tobacco 10/10/25 13:53 Tobacco use type Cigarette 10/10/25 13:53 e-Cigarette/Vaping Use Never Used 10/10/25 13:53 Thrive Assessment: Date of Thrive Assessment Date Thrive assessed 03/15/25 10/10/25 13:53 Currently or been in a relationship where the following occur: No concerns reported Const Other: Obese General: healthy appearing, no acute distress, alert and awake Nutritional Appearance: well nourished Orientation/consciousness: oriented to person, oriented to place and oriented to time HENMT Ears: TM's normal bilaterally General nose exam: Normal nasal mucous membranes and turbinates present Eyes Conjunctivae: conjunctivae normal Sclerae: sclerae normal Pupils: Equal, round and reactive pupils present Neck Neck: Yes no lymphadenopathy and Yes no JVD Thyroid: Thyroid normal Carotids: no bruits Resp Effort & Inspection: normal respiratory effort and not tachypneic Auscultation: no crackles, no rales, no rhonchi and no wheezes Cardio Rate: regular rate Rhythm: regular rhythm Heart sounds: no murmurs and normal S1 and S2 GI Palpation (GI): Soft to palpation, nontender, no hepatomegaly and no splenomegaly Auscultation: normal bowel sounds Skin General skin exam: no rashes or lesions noted and dry skin Neuro General: oriented to person, oriented to place and oriented to time Cranial nerves: Yes Equal, round and reactive pupils present Speech: No Abnormal speech present Gait exam (Neuro): Normal gait present Motor exam (neuro): no tremor noted Extrem Right upper extremity: full ROM Left upper extremity: full ROM Right lower extremity: full ROM; no edema Left lower extremity: full ROM; no edema Psych Mental Status: mental status grossly normal Speech and movement: Normal speech and movement present Affect: normal affect Attitude: cooperative Thought process: Normal thought process present Office Procedures Flu Questionnaire Does the patient have a severe egg allergy?: No Does the patient have severe life threatening allergies?: No Does the patient have a fever or illness today?: No Has the patient ever had Guillain-Weatherly Syndrome?: No Has the patient ever had any past reaction to a flu shot?: No Immunizations Fluarix [id number] (PF) 45 mcg (15 mcg x 3)/0.5 mL IM syringe Performing Provider: Paras Gutierrez PA-C Performing Location: [facility] Administered by: MERLY Lozano on 10/10/25 14:32 Dose Route Admin Location Dispensed Lot Number Expiration Date NDC Assistant Manager Quality Management 0.5 mL IM Left Deltoid 0.5 mL [id number] 05/08/26 [id number] [employer] VIS Given Date VIS Provided VIS Publication Date 10/10/25 Single Vaccine 24 Eligibility Eligibility Date Funding Source Not [facility] Eligible 10/10/25 Private Coding Level of Care Code Est Pt Level 4 (68723) Diagnoses Primary hypertension I10 Hypertension type: primary hypertension Mixed hyperlipidemia E78.2 Hyperlipidemia type: mixed hyperlipidemia Acquired hypothyroidism E03.9 Hypothyroidism type: acquired Primary insomnia F51.01 Insomnia type: primary Colon cancer screening Z12.11 BPH associated with nocturia N40.1; R35.1 Assessment & Plan Assessment & Plan (1) HTN (hypertension): Code(s): I10 - Essential (primary) hypertension Category: Medical Qualifiers: Hypertension type: primary hypertension Qualified Code(s): I10 - Essential (primary) hypertension Plan: Patient's blood pressure elevated today in office. He admits to dietary indiscretion and sedentary lifestyle. We discuss perhaps starting blood pressure medication though he would like to hold off and do blood pressure monitoring at home. Goal blood pressures to be below 140/90 (2) HLD (hyperlipidemia): Code(s): E78.5 - Hyperlipidemia, unspecified Category: Medical Qualifiers: Hyperlipidemia type: mixed hyperlipidemia Qualified Code(s): E78.2 - Mixed hyperlipidemia Plan: Patient's fasting cholesterol panel showing very elevated total cholesterol and LDL. Will restart alternative statin and recheck lipid panel with goal LDL to be below 130 (3) Hypothyroid: Code(s): E03.9 - Hypothyroidism, unspecified Category: Medical Qualifiers: Hypothyroidism type: acquired Qualified Code(s): E03.9 - Hypothyroidism, unspecified Plan: Patient's most recent TSH slightly elevated, patient has not been consistent with the use of his levothyroxine. Will continue him on levothyroxine 25 mcg on an empty stomach every morning. Will continue to follow TSH to assure normal. (4) Insomnia: Code(s): G47.00 - Insomnia, unspecified Category: Medical Qualifiers: Insomnia type: primary Qualified Code(s): F51.01 - Primary insomnia Plan: Patient does use zolpidem on an as needed basis for sleep which works wonderfully for him. (5) Colon cancer screening: Code(s): Z12.11 - Encounter for screening for malignant neoplasm of colon Category: Medical Plan: Has upcoming appointment for repeat colonoscopy. (6) BPH associated with nocturia: Code(s): N40.1 - Benign prostatic hyperplasia with lower urinary tract symptoms; R35.1 - Nocturia Category: Medical Plan: Continue on tamsulosin daily to help him with his nocturia. Orders: Orders Comprehensive [place]. Panel Fast 10/10/25 I10 - Essential (primary) hypertension Lipid Panel 10/10/25 E78.2 - Mixed hyperlipidemia TSH reflex Free T4 10/10/25 E03.9 - Hypothyroidism, unspecified Microalbumin, Random (w Creat) 10/10/25 I10 - Essential (primary) hypertension Complete Blood Count no Diff 10/10/25 I10 - Essential (primary) hypertension Prostate Specific Antigen Scr 10/10/25 E78.2 - Mixed hyperlipidemia, Z12.5 - Encounter for screening for malignant neoplasm of prostate Influenza [id number] Immunization 10/10/25 Z23 - Encounter for immunization Medications: New rosuvastatin 20 mg PO DAILY 90 tabs 1RF 90 days E78.2 - Mixed hyperlipidemia Refilled cyclobenzaprine 10 mg PO Q8H PRN 90 tabs 1RF Muscle spasm 30 days S32.010S - Wedge compression fracture of first lumbar vertebra, sequela tamsulosin 0.4 mg PO BEDTIME 90 caps 1RF 90 days R39.12 - Poor urinary stream zolpidem 5 mg PO BEDTIME PRN 10 tabs 0RF sleep 10 days G47.00 - Insomnia, unspecified ibuprofen 800 mg PO Q8H PRN 90 tabs 1RF pain 30 days S32.010S - Wedge compression fracture of first lumbar vertebra, sequela polyethylene glycol 3350 (Miralax) take this daily, if no bowel movement for 2 days 17 grams PO DAILY PRN 238 grams 0RF constipation 90 days sennosides (senna) 17.2 mg (2 x 8.6 mg) PO DAILY PRN 90 tabs 0RF constipation levothyroxine 25 mcg PO DAILY 90 tabs 1RF 90 days E03.9 - Hypothyroidism, unspecified oxycodone Partial Fill upon patient request. 5 mg PO BID PRN 6 tabs 0RF pain 3 days S32.010S - Wedge compression fracture of first lumbar vertebra, sequela
[2025-10-10 13:55] VITALS: BP 130/90; PULSE 93; TEMP 36.3; O2SAT 98; BMI 37.0
--- OUTSIDE RECORDS SUMMARY | 2025-10-10 15:48 | XMS_ITS | Encounter Summary ---
Author Organization [employer] [facility] Address [address] [place] [id number] Care Team Providers Care Guitar Player Name Role Phone Unavailable Primary Care Provider Unavailabl e Encounter Details Date Type Department Care Team (Latest Contact Info) Description 01/19/2019 Abstract [facility] CONVERSIONS Dental, Provider, DDS Social History Tobacco [...] Description 10/12/2025 9:30 AM EST Office Visit [facility] ADULT DENTAL [address] [place] [address] Ollie Huffaris [address] [place] [address] documented as of this encounter Visit Diagnoses Not on filedocumented in this encounter
--- OUTSIDE RECORDS SUMMARY | 2025-10-10 15:48 | XMS_ITS | Encounter Summary ---
Author Organization [employer] [facility] Address [address] [place] [id number] Care Team Providers Care Title I Director Name Role Phone Unavailable Primary Care Provider Unavailabl e Reason for Visit * Reason Onset Date Comments New Patient 07/01/2023 Encounter Details Date Type Department Care Team (Late st Contact Info) Description 07/01/2023 Telephone [facility] [address] [place] [address] Matthew Lanza MD [address] [place] [address] New Patient Social History Tobacco Use Types [...] been transfer over to wait list for [employer]. EFFECTIVE SINCE 07/01/2023 documented in this encounter Plan of Treatment Upcoming Encounters Date Type Department Care Team (Late st Contact Info) Description 10/12/2025 9:30 AM EST Office Visit [facility] ADULT DENTAL [address] [place] [address] Tiffanie Huff [address] [place] [address] documented as of this encounter Visit Diagnoses Not on filedocumented in this encounter
--- OUTSIDE RECORDS SUMMARY | 2025-10-10 15:48 | XMS_ITS | Clinical Summary ---
Author Organization [employer] Address [address] [place] [address] [address] [place] [address] Care Team Providers Care Medical Information Officer Name Role Phone Unavailable Primary Care [...] Description 09/12/2025 9:00 AM EST Office Visit [facility] ADULT DENTAL [address] [place] [address] Sam Warren DDS Dental caries (Primary Dx) 09/11/2025 Travel 08/11/2025 9:30 AM EDT Office Visit [facility] ADULT DENT[facility] [address] [place] [address] Tiffanie Huff Periodontal disease (Primary Dx); Dental [...] Description 10/12/2025 9:30 AM EST Office Visit [facility] ADULT DENT[facility] [address] [place] [address] Tiffanie Huff [address] [place] [address] Health Maintenance Due Date Last Done Comments [...] Most Recently Relevant to Health Maintenance Insurance [facility] MEDIC[facility] [place] [address] [place] [phone] [facility] ST[facility]ULT
--- OUTSIDE RECORDS SUMMARY | 2025-10-10 15:48 | XMS_ITS | Clinical Summary ---
Author Organization [address] [facility] Address [address] [place] [address] Phone Care Team Providers Care Electric Motor Winders Assembler Name Role Phone Paras Gutierrez Primary Care [...] complete this topic Insurance MEDICARE Care Teams Electric Motor Winders Assembler Relationship Specialty Start Date End Date Paras Gutierrez PA [address] [place] [phone] PCP - General Physician Clutch Rebuilder 06/01/25
== END 2025-10-10 14:30 | disposition home or self-care (01) ==
LOC: HO.HMCH 13:46
PROVIDERS: PCP Physician Assistant; Visit Provider Physician Assistant
DX: I10 Essential (primary) hypertension (principal); E78.2 Mixed hyperlipidemia; E03.9 Hypothyroidism, unspecified; F51.01 Primary insomnia; Z12.11 Encounter for screening for malignant neoplasm of colon; N40.1 Benign prostatic hyperplasia with lower urinary tract symptoms; R35.1 Nocturia

== ENCOUNTER → 2025-10-10 13:45 | Outpatient (BNVA) | payer MEDICARE, MEDICAID, SELFPAY | PROVIDERS: PCP Physician Assistant; Visit Provider Physician Assistant | DX: I10 Essential (primary) hypertension (principal); E03.9 Hypothyroidism, unspecified; E78.2 Mixed hyperlipidemia; G47.00 Insomnia, unspecified; F51.01 Primary insomnia; N40.1 Benign prostatic hyperplasia with lower urinary tract symptoms; R35.1 Nocturia; R39.12 Poor urinary stream; Z23 Encounter for immunization | CPT/HCPCS: 90471; 90656; 99212 ==

== ENCOUNTER 2025-10-17 09:32 | Day surgery (SDC) | payer MEDICARE, MEDICAID, SELFPAY ==
--- OUTSIDE RECORDS SUMMARY | 2025-09-12 09:00 | XMS_ITS | Encounter Summary ---
Author Organization [employer] Address [address] [place] [address] Care Team Providers Care Exercise Scientist Name Role Phone Unavailable Primary Care Provider Unavailabl e Reason for Visit * Reason Comments Filling Encounter Details Date Type Department Care Team ([facility] st Contact Info) Description 09/12/2025 9:00 AM EST Office Visit [facility] ADULT DENTAL [address] [place] [address] Sam Warren DDS [address] [place] [address] Dental caries (Primary Dx) Social History Tobacco Use Types Packs/Day Years Used Date Smoking Tobacco: Never Smokeless Tobacco: Never Alcohol Use Standard Drinks/Week Comments Defer 0 (1 standard drink = 0.6 oz pur e alcohol) Sex and Gender Information Value Date Recorded Sex Assigned at Male 09/08/2022 10:16 AM EDT Legal Sex Male 10:16 AM EDT Gender Identity Male 03/15/2024 10:15 AM EDT Sexual Orientation Straight 03/15/2024 10 :15 AM EDT documented as of this encounter Last Filed Vital Signs Vital Sign Reading Time Taken Comments Blood Pressure 124/82 09/12/2025 9:05 AM EST Pulse - - Temperature - - Respiratory Rate - - Oxygen Saturation - - Inhaled Oxygen Concentration - - Weight - - Height - - Body Mass Index - - documented in this encounter Progress Notes * Sam Warren DDS - 09/12/2025 9:00 AM EST Patient ID: Lalito Rico is a 60 y.o. male. Time Out: Timeout Date: 09/12/25, Timeout Time: 0858 (composite on tooth# 5 , 8 , 21 , 31) Location: [facility] Tooth: Maxilla and Mandible Procedure: Orthodoxy Verified the above with patient, patient support assistant, and provider. Confirmed via patient's chart, intraorally and by radiographs. Facilities Officer: not applicable Chief Complaint Patient presents with Filling Medical Hx: Vitals: Blood pressure 124/82. Medications, Med Hx reviewed with patient and updated in chart. Consent Obtained: The risks, benefits, indications, potential complications, and alternatives were explained to the patient and informed consent was obtained with good understanding. Treatment Provided: Dental procedures in this visit D2150 - AMALGAM - 2 SURF, PRIMARY OR PERMANENT 31 LO (Completed) Service provider: Sam Warren DDS Billing provider: Sam Warren DDS [id number] - RESIN-BASED COMPOSITE - 1 SURF, POSTERIOR 28 B(V) (Completed) Service provider: Sam Warren DDS [place] provider: Sam Warren DDS [id number] - RESIN-BASED COMPOSITE - 1 SURF, POSTERIOR 21 B(V) (Completed) Service provider: Sam Warren DDS Billing provider: Sam Warren DDS [id number] - RESIN-BASED COMPOSITE - 1 SURF, POSTERIOR 5 B(V) (Completed) Service provider: Sam Warren DDS Billing provider: Sam Warren DDS [id number] - CASE PRESENTATION, DETAILED AND EXTENSIVE TREATMENT PLANNING (Completed) Service provider: Sam Warren DDS Billing provider: Sam Warren DDS Diagnosis: Caries Topical: 20% Benzocaine Anesthesia: 2% Lidocaine (Xylocaine) w/ 1:100,000 epinephrine Number of Cartridges: .50 Injection Type: Inferior alveolar nerve block Confirmed profound anesthesia. Isolation: cotton rolls and high speed suction Prep: All caries removed, Existing pentecostalism removed, and Preparation finalized Matrix: Tofflemire and wedge Etch: 37% Phosphoric Acid Etch Desensitizer: Gluma Liner/Base: LimeLite Leblanc: I-Leblanc Orthodoxy Material: Filtek Lester Flowable Composite and Amalgam Shade: A3.5 Polished. Occlusion & contacts verified. Patient satisfied with comfort and esthetics. Patient tolerated procedure well. Post-operative instructions were given. Patient departed alert, oriented, and in stable condition. NV: [id number] Cancer Registrar: Pita Platt Dentist: Sam Bolano, DDS documented in this encounter Plan of Treatment Upcoming Encounters Date Type Department Care Team (Late st Contact Info) Description 10/12/2025 9:30 AM EST Office Visit [facility] ADULT DENTAL [address] [place] [address] Ollie Huffaris [address] [place] [address] documented as of this encounter Procedures Procedure Name Priority Date/Time Associated Diagnosis Comments 5 B(V) RESIN-BASED COMPOSITE - 1 SURF, POSTERIOR Routine 09/12/2025 9:00 AM EST 21 B(V) RESIN-BASED COMPOSITE - 1 SURF, POSTERIOR Routine 09/12/2025 9:00 AM EST 28 B(V) RESIN-BASED COMPOSITE - 1 SURF, POSTERIOR Routine 09/12/2025 9:00 AM EST CASE PRESENTATION, DETAILED AND EXTENSIVE TREATMENT PLANNING Routine 09/12/2025 9:00 AM EST 31 LO AMALGAM - 2 SURF, PRIMARY OR PERMANENT Routine 09/12/2025 9:00 AM EST documented in this encounter Visit Diagnoses Diagnosis Dental caries- Primary Unspecified dental caries documented in this encounter
--- OUTSIDE RECORDS SUMMARY | 2025-09-14 09:11 | XMS_ITS | Encounter Summary ---
Author Organization [employer] [facility] Address [address] [place] [address] [place] [address] Care Team Providers Care Barn Boss Name Role Phone Unavailable Primary Care Provider Unavailabl e Encounter Details Date Type Department Care Team (Latest Contact Info) Description 09/11/2025 Travel Social History Tobacco Use Types Packs/Day Years Used Date Smoking Tobacco: Never Smokeless Tobacco: Never Sex and Gender Information Value Date Recorded Sex Assigned at Male 09/08/2022 10:16 AM EDT Legal Sex Male 10:16 AM EDT Gender Identity Male 03/15/2024 10:15 AM EDT Sexual Orientation Straight 03/15/2024 10 :15 AM EDT documented as of this encounter Plan of Treatment Upcoming Encounters Date Type Department Care Team (Late st Contact Info) Description 10/12/2025 9:30 AM EST Office Visit [facility] ADULT DENTAL [address] [place] [address] Tiffanie Huff [address] [place] [address] documented as of this encounter Visit Diagnoses Not on filedocumented in this encounter
--- OUTSIDE RECORDS SUMMARY | 2025-09-14 09:11 | XMS_ITS | Clinical Summary ---
Author Organization [facility] Address [address] [place] [address] Phone Care Team Providers Care Inspection And Testing Supervisor Name Role Phone Paras Gutierrez Primary Care Provider [phone] Allergies No known active allergies Medications terbinafine (LamISIL) 250 mg tablet Take 1 tablet (250 mg total) by mouth 1 (one) time each day. 30 tablet 2 06/01/2025 Social History Tobacco Use Types Packs/Day Years Used Date Smoking Tobacco: Never Assessed Sex and Gender Information Value Date Recorded Sex Assigned at Not on file Legal Sex Male 8:29 AM EST Gender Identity Not on file Sexual Orientation Not on file Plan of Treatment Health Maintenance Due Date Last Done Comments Colorectal Cancer Screening: Colonoscopy 1965 Pneumococcal Vaccine: 50+ Years (1 of 1 - PCV) 2015 Zoster Vaccines (1 of 2) 2015 Depression Screening 11/09/2024 Cholesterol Screening (Lipid Panel) 03/13/2025 HIV Screening 03/13/2025 Hepatitis C Screening 03/13/2025 Medicare Annual Wellness Visit 03/13/2025 Social Influencers of Health Screening 03/13/2025 COVID-19 Vaccine (3 - 2024-2 6 season) 2025 06/23/2021, 06/02/2021 Influenza Vaccine (#1) 2025 , 09/23/2023 DTaP,Tdap,and [...] age to complete this topic Insurance MEDICARE Care Teams Inspection And Testing Supervisor Relationship Specialty Start Date End Date Paras Gutierrez PA [address] [place] [phone] PCP - General Physician Locomotive Boilermaker 06/01/25
--- OUTSIDE RECORDS SUMMARY | 2025-09-14 09:11 | XMS_ITS | Encounter Summary ---
Author Organization [facility] Address [address] [place] [address] [address] [address] Care Team Providers Care Pacu Nurse Name Role Phone Unavailable Primary Care Provider Unavailabl e Encounter Details Date Type Department Care Team (Latest Contact Info) Description 01/19/2019 Abstract [facility] CONVERSIONS Dental, Provider, DDS Social History Tobacco [...] Description 10/12/2025 9:30 AM EST Office Visit [facility] ADULT DENTAL [address] [place] [address] Ollie Huffaris [address] [place] [address] documented as of this encounter Visit Diagnoses Not on filedocumented in this encounter
--- OUTSIDE RECORDS SUMMARY | 2025-09-14 09:11 | XMS_ITS | Encounter Summary ---
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 EFFECTIVE SINCE 07/01/2023 documented in this encounter Plan of Treatment Upcoming Encounters Date Type Department Care Team (Late st Contact Info) Description 10/12/2025 9:30 AM EST Office Visit [facility] ADULT DENTAL [address] [place] [address] Tiffanie Huff [address] [place] [address] documented as of this encounter Visit Diagnoses Not on filedocumented in this encounter
--- OUTSIDE RECORDS SUMMARY | 2025-09-14 09:12 | XMS_ITS | Clinical Summary ---
Author Organization [employer] Address [address] [place] [address] 7 [place] [address] Care Team Providers Care Case Technician Name Role Phone Unavailable Primary Care Provider Unavailabl e Allergies No known active allergies Medications ibuprofen 800 MG tablet Take 800 mg by mouth every 8 (eight) hours if needed. 4 Active cyclobenzaprine (Flexeril) 10 MG tablet Take 10 mg by mouth every 8 (eight) hours if needed for muscle spasms. 4 Active oxyCODONE (Roxicodone) 10 MG immediate release tablet TAKE 1 TABLET BY MOUTH EVERY 6 HOURS FOR 5 DAYS NEEDED FOR PAIN 4 Active atorvastatin (Lipitor) 10 MG tablet 4 Active levothyroxine (Synthroid, Levoxyl) 25 MCG tablet 4 Active zolpidem (Ambien) 5 MG tablet 4 Active polyethylene glycol, PEG, 3350 (Glycolax) 17 GM/SCOOP powder 5 Active tamsulosin (Flomax) 0.4 MG 24 hr capsule Take 0.4 mg by mouth at bedtime. 5 Active senna (Senokot) 8.6 MG tablet TAKE 2 TABLETS BY MOUTH EVERY DAY NEEDED FOR CONSTIPATION 5 Active Active Problems Problem Noted Date Diagnosed Date Dental caries 09/12/2025 Dental calculus 10/03/2024 Periodontal disease 10/03/2024 Advanced periodontitis 10/03/2024 Gingival bleeding 10/03/2024 Encounters Date Type Department Care Team Description 09/12/2025 9:00 AM EST Office Visit [facility] ADULT DENTAL [address] [place] [address] Sam Warren DDS Dental caries (Primary Dx) 09/11/2025 Travel 08/11/2025 9:30 AM EDT Office Visit [facility] ADULT DENTAL [address] [place] [address] Tiffanie Huff Periodontal disease (Primary Dx); Dental calculus from Last 3 Months Social History Tobacco Use Types Packs/Day Years Used Date Smoking Tobacco: Never Smokeless Tobacco: Never Tobacco Cessation:Counseling Given: Not Answered Alcohol Use Standard Drinks/Week Comments Defer 0 [...] Mass Index - - Plan of Treatment Upcoming Encounters Date Type Department Care Team (Late st Contact Info) Description 10/12/2025 9:30 AM EST Office Visit [facility] ADULT DENTAL [address] [place] [address] Tiffanie Huff [address] [place] [address] Health Maintenance Due Date Last Done Comments [...] 04/26/2024, 0 07/22/2019, 01/19/2019, Additional history exists COVID-19 Vaccine (3 - 2024- season) 2025 06/23/2021, 06/02/2021 Influenza Vaccine (#1) 2025 09/27/2024, 2022 Dental X-Ray: Bitewings 10/04/2025 10/03/20 24, 04/07/2024, 01/19/2019, Additional history exists Tobacco Screening 09/12/2026 09/12/2025 Dental X-Ray: Full Mouth 04/08/2027 04/07/2024, 02/2017 DTaP/Tdap/Td Vaccines (3 - Td or Tdap) 04/26/2035 04/26/2025, 12/11/2014 RSV Patients and Patients Aged 60 years [...] Procedure Name Priority Date/Time Associated Diagnosis Comments CASE PRESENTATION, DETAILED AND EXTENSIVE TREATMENT PLANNING Routine 09/12/2025 9:00 AM EST 5 B(V) RESIN-BASED COMPOSITE - 1 SURF, POSTERIOR Routine 09/12/2025 9:00 AM EST 21 B(V) RESIN-BASED COMPOSITE - 1 SURF, POSTERIOR Routine 09/12/2025 9:00 AM EST 28 B(V) RESIN-BASED COMPOSITE - 1 SURF, POSTERIOR Routine 09/12/2025 9:00 AM EST 31 LO AMALGAM - 2 SURF, PRIMARY OR PERMANENT Routine 09/12/2025 9:00 AM EST LR PERIODONTAL SCALING AND ROOT PLANING - 4 OR MORE TEETH PER QUADRANT Routine 08/11/2025 9:30 AM EDT Periodontal disease Dental calculus UR PERIODONTAL SCALING AND ROOT PLANING - 4 OR MORE TEETH PER QUADRANT Routine 08/11/2025 9:30 AM EDT Periodontal disease Dental calculus CASE PRESENTATION, DETAILED AND EXTENSIVE TREATMENT PLANNING Routine 08/11/2025 9:30 AM EDT Periodontal disease Dental calculus BITEWINGS - 3 RADIOGRAPHIC IMAGES Routine 10/03/2024 [...] Most Recently Relevant to Health Maintenance Insurance [facility] [place] [address] [place] [phone] [facility] MED[facility] STAND ADULT
--- NOTE | 2025-10-13 12:05 | P.CONAN_ITS ---
Documented by User: Johnna Dodson NP 10/13/25 12:51 HPI - Anesthesia Eval Consult details Narrative: 60yo M for Colonoscopy [facility] Active Problems Active Problems: All Active Problems Left leg paresthesias (Acute) Lumbar radiculopathy (Acute) Lumbar spondylosis (Acute) Disc degeneration, lumbar (Acute) Weak urine stream (Acute) Personal history of colonic polyps (Acute) Constipation (Acute) Left-sided low back pain with left-sided sciatica (Acute) Acute bronchitis (Acute) Colon cancer screening (Acute) Dora onychomycosis (Acute) Presbyopia of both eyes (Acute) GERD (gastroesophageal reflux disease) (Acute) Insomnia (Acute) Pharyngitis (Acute) BPH associated with nocturia (Acute) Hypothyroid (Acute) HTN (hypertension) (Acute) Globus sensation (Acute) Obese (Acute) Annual physical exam (Acute) Compression fracture of L1 vertebra (Acute) HLD (hyperlipidemia) (Acute) Medicare annual wellness visit, initial (Acute) Sciatica (Acute) Past Medical History Medical History Lumbar radiculopathy, acute HTN (hypertension) Disc degeneration, lumbar Family History Family History Father No problems noted. Mother Diabetes Hyperlipidemia Hypertension Alzheimer disease Maternal Grandfather Cancer Family history of problems with anesthesia: No Surgical History Surgical History Hx of colonoscopy History of Problems with Anesthesia: No Social History Social History Housing: House Alcohol intake: current Alcohol intake frequency: holidays/special occasions only Patient Tobacco Use Status: Never used Tobacco Tobacco use type: Cigarette e-Cigarette/Vaping Use: Never Used Second Hand Smoke Exposure: No Advance Directives: No Advance Directives Information Provided: Yes service: No Current occupational status: disabled Cognitive needs: No Hearing needs: No Vision needs: Yes Meds Allergies Allergy/AdvReac Type Severity Reaction Status Date / Time valium Allergy Severe Unconscious Uncoded 10/10/25 14:05 Exam Pertinent Lab Results Pertinent Lab Results: Laboratory Tests 10/02/25 10:36 WBC 5.8 Hgb 15.5 Hct 47.5 Plt Count 249 Sodium 140 Potassium 4.2 Chloride 102 Carbon Dioxide 30 H BUN 16 Creatinine 0.92 Assessment and Plan Assessment Anesthesia Assessment: Chart Reviewed Final Anesthetic Review Family History of Problems with Anesthesia: No History of Problems with Anesthesia: No Documented by User: Aysha La MD 10/17/25 10:26 PMFSH Past Medical History Medical History Lumbar radiculopathy, acute HTN (hypertension) Disc degeneration, lumbar Family History Family History Father No problems noted. Mother Diabetes Hyperlipidemia Hypertension Alzheimer disease Maternal Grandfather Cancer Surgical History Surgical History Hx of colonoscopy Social History Social History Housing: House Alcohol intake: current Alcohol intake frequency: holidays/special occasions only Patient Tobacco Use Status: Never used Tobacco Tobacco use type: Cigarette e-Cigarette/Vaping Use: Never Used Second Hand Smoke Exposure: No Advance Directives: No Advance Directives Information Provided: Yes service: No Current occupational status: disabled Cognitive needs: No Hearing needs: No Vision needs: Yes Meds Allergies Allergy/AdvReac Type Severity Reaction Status Date / Time valium Allergy Severe Unconscious Uncoded 10/10/25 14:05 Exam Airway Mallampati Class: II TM Dist: >3cm Neck ROM: Full Heart: rrr Lungs: cta Assessment and Plan Assessment Anesthesia Assessment: Anesthesia Plan Discussed Final Anesthetic Review NPO: Yes ASA Class: II Final Preanesthetic Review: No Changes in Pt Med Stat, Meds/Allgs Chart Reviewed, Consent Obtained/Reviewed and Anes Risks/Benef Reviewed Patient Risk: Intermediate Procedure Risk: Low Anesthetic Plan Anesthetic Plan: MAC: Disposition: Standard PACU
[2025-10-17 10:32] VITALS: BMI 36.3
[2025-10-17 10:40] VITALS: BP 143/92; PULSE 93; RESP 15; TEMP 36.8; O2SAT 97
--- NOTE | 2025-10-17 10:41 | MHC.SHP ---
Pre-Procedural Eval Section A - 24 Hr Update-Section A only Date of Service: 10/17/25 Section B - Complete if H&P > 30 days Chief Complaint: Personal history of colon polyps, unspecified Details of Present Illness: HTN (hypertension) Disc degeneration, lumbar Surgical History Hx of colonoscopy No pertinent past surgical history Present Medications: see Short Stay Collaborative assessment Allergies: Allergies Allergy/AdvReac Type Severity Reaction Status Date / Time valium Allergy Severe Unconscious Uncoded 10/17/25 10:31 Review of Systems Review of Systems Comment: Ten point ROS negative Exam Exam Comment: Gen appear: No acute distress HEENT: no icterus Chest: No overt resp distress Abd: soft, nontender, nondistended Psych: Stable affect, answering questions appropriately Neuro: A/Ox3 noted to move all extremities spontaneously Ext: no peripheral edema Plan Diagnosis/Plan: Unchanged I have reviewed the history and physical and performed a pertinent physical examination on my patient. No changes have occurred unless specified. Time Spent With Patient Time: Total time managing care of this patient today ____ minutes.
[2025-10-17] MEDS: Lactated Ringers 1,000 ML 100 ML IVCONT (10:50)
--- NOTE | 2025-10-17 11:56 | P.OPN-COLO_ITS ---
Colonoscopy Operative Note Operative Note Date of Service: 10/17/25 Narrative: Procedure: Colonoscopy Indication: Screening Endoscopist: Anu Quijano MD Anesthesia Provider: Dr Kan Anesthesia type: MAC Instrument: Olympus [id number]-H190L Consent: Indication, risks vs benefits, and alternatives were discussed with the patient who gave written informed consent to proceed. EKG, pulse, pulse oximetry and blood pressure were monitored throughout the procedure. Please see anesthesia flowsheet. Procedure: The patient was brought to the procedure room and placed in the left lateral decubitus position. IV medications were administered by the anesthesia provider in attendance. A digital rectal exam was performed which was normal. A distal attachment cap was affixed to the tip of the colonoscope which was then inserted through the anus and advanced through the colon to the cecum at 80 cm. Appendiceal orifice and ileocecal valve were identified. Mucosa was carefully examined under high definition white light as the instrument was slowly withdrawn in a retrograde panoramic fashion. Retroflexion was performed in rectum. The procedure was not difficult. There were no immediate obvious complications. The quality of the prep was BBPS: 2+2+2 = adequate Withdrawal time 10 minutes. Limitations: No limitations. Findings: Mucosa: Normal to cecum. Protruding lesions: * Large external hemorrhoids without stigmata of recent bleeding. Impression: 1. Normal colon mucosa 2. Internal hemorrhoids Recommendations: - Follow path results. - Repeat colonoscopy in 10 years for asymptomatic colorectal ca screening.
[2025-10-17 12:01] VITALS: BP 108/84; PULSE 91; RESP 15; TEMP 36.3; O2SAT 97
[2025-10-17 12:18] VITALS: BP 118/92; PULSE 98; RESP 16; TEMP 36.3; O2SAT 98
== END 2025-10-17 12:43 | disposition home or self-care (01) ==
PROVIDERS: PCP Physician Assistant; Visit Provider Internal Medicine
PROC: 0DJD8ZZ Inspection of Lower Intestinal Tract, Via Natural or Artificial Opening Endoscopic (ICD-10-PCS; CPT 45378; principal; 2025-10-17 11:40)
DX: Z12.11 Encounter for screening for malignant neoplasm of colon (principal); Z86.0101 Personal history of adenomatous and serrated colon polyps; K59.00 Constipation, unspecified; K64.8 Other hemorrhoids
CPT/HCPCS: G0121; J1100; J2003; J2250; J2704

== ENCOUNTER → 2025-10-17 09:32 | Outpatient (BNV) | payer MEDICARE, MEDICAID, SELFPAY | PROVIDERS: PCP Physician Assistant; Visit Provider Internal Medicine | DX: Z12.11 Encounter for screening for malignant neoplasm of colon (principal); Z86.0100 Personal history of colon polyps, unspecified; K64.8 Other hemorrhoids | CPT/HCPCS: G0105 ==